=== PATIENT | female | born 1975 ===

== ENCOUNTER 2020-06-29 15:03 | Emergency (ER) | payer MEDICARE, MEDICAID, SELFPAY ==
--- NOTE | 2020-06-29 17:07 | PC.NURSE ---
No answer when called to triage.
--- NOTE | 2020-06-29 17:51 | PC.NURSE ---
Call to waiting room, no answer. java development team lead states she thinks the patient left.
== END 2020-06-29 18:26 | disposition left against medical advice (07) ==
LOC: ANHED 18:13
DX: Z53.21 Procedure and treatment not carried out due to patient leaving prior to being seen by health care provider (principal)
CPT/HCPCS: 99199

== ENCOUNTER 2020-09-08 11:05 | Emergency (ER) | payer MEDICARE, MEDICAID, SELFPAY ==
[2020-09-08] VITALS (22 sets, daily range): BP systolic 105–149; BP diastolic 60–105; PULSE 108–130; RESP 16–28; TEMP 36.6; O2SAT 94–100
--- NOTE | ~2020-09-08 | XR_ITS ---
EXAMINATION: XR chest 1V portable EXAM DATE: 09/08/2020 12:22 INDICATION: Transient level of awareness. TECHNIQUE: Portable AP frontal chest x-ray was obtained. Comparison is made to prior examination from 04/27/2018. FINDINGS: The lungs are clear. There are no pleural effusions. The cardiomediastinal silhouette is within normal limits. There is no pneumothorax suspected. The bones and soft tissues are unremarkab le. IMPRESSION: No acute cardiopulmonary findings. Reviewed, dictated and finalized at location A.
[2020-09-08 12:11] LABS: Basophils Percent Auto 0.2 % (0.2-1.2); Hematocrit 33.4 % (37.0-47.0); Hemoglobin 11.4 g/dL (12.0-15.0); Immature Granulocyte Absolute 0.15 K/mm3 (0.00-0.031); Immature Granulocyte Percent A 0.7 % (0-0.5); Lymphocytes Absolute Auto 1.88 K/mm3 (0.9-3.2); Lymphocytes Percent Auto 8.6 % (18.3-44.2); Mean Corpuscular HGB Conc 34.1 g/dl (32-36); Mean Corpuscular Hemoglobin 29.2 pg (26-34); Mean Corpuscular Volume 85.4 fl (80-100); Monocytes Absolute Auto 1.7 K/mm3 (0.1-0.6); Monocytes Percent Auto 7.9 % (2.6-8.5); Neutrophils Absolute Auto 18.1 K/mm3 (1.3-6.7); Neutrophils Percent Auto 82.6 % (45.5-73.1); Platelet Count Result 253 k/mm3 (150-375); Red Blood Count 3.91 M/mm3 (4.2-5.4); Red Cell Distribution Width 14.3 % (11.5-14.5); White Blood Count 21.9 K/mm3 (4.5-10.0)
--- NOTE | 2020-09-08 12:15 | ECG_ITS ---
Measurements Intervals [place] Rate: 133 P: 98 AL: 189 QRS: 107 QRSD: 92 T: 82 QT: 376 QTc: 559 Interpretive Statements ATRIAL FLUTTER/TACHYCARDIA WITH RAPID VENTRICULAR RESPONSE VENTRICULAR PREMATURE COMPLEX BORDERLINE ST-T WAVE ABNORMALITY- ANTEROLAT/INF LEADS BASELINE ARTIFACT- II, III, AVR, AVL, AVF, V1-V6 ABNORMAL ECG Electronically Signed On 09-08-2020 12:38:26 CDT by Maximo Lyles D.O.
[2020-09-08 12:22] LABS: Partial Thromboplastin Time 24.6 SECONDS (22.3-36.8); Prothrombin Time 13.6 Seconds (11.1-14.7)
[2020-09-08 12:24] LABS: Acetaminophen < 10 ug/mL (10-30); Ammonia < 9 umol/L (9-30); Ethanol < 10 mg/dL (<10); Salicylate < 1.0 mg/dL (2-20)
[2020-09-08 12:28] LABS: Alanine Aminotransferase 20 U/L (4-35); Albumin Level 2.8 g/dL (3.5-5.1); Alkaline Phosphatase 88 U/L (38-126); Anion Gap 13 mmol/L (8-16); Aspartate Amino Transferase 26 U/L (14-36); Bilirubin,Total 0.4 mg/dL (0.2-1.3); Blood Urea Nitrogen 19 mg/dL (7-17); Calcium 9.6 mg/dL (8.4-10.2); Carbon Dioxide 20 mmol/L (22-30); Chloride 93 mmol/L (98-107); Estimated Glomerular Filt Rate 7; Glucose 229 mg/dL (65-105); Potassium 2.7 mmol/L (3.4-5.0); Sodium 126 mmol/L (137-145)
[2020-09-08 12:42] LABS: Add Urine Microscopic? YES; Appearance Urine Cloudy (Clear); Bacteria Urine Trace /hpf; Bilirubin Urine Negative (Negative); Blood Urine Negative (Negative); Color Urine Amber (Yellow); Glucose Urine UA Negative (Negative); Ketones Urine Negative (Negative); Leukocyte Esterase Ur 3+ LEU/UL (Negative); Nitrate Urine Negative (Negative); Protein Urine 1+ mg/dL (Negative); RBC Urine 0-2 /hpf (0-2); Specific Grav Ur 1.014 (1.001-1.035); Squamous Epithelial Cell Urine Occasional /hpf (Few); Urobilinogen Urine Negative mg/dL (<2.0); WBC Clumps Urine Present /HPF; WBC Urine 51-75 /hpf
[2020-09-08 13:07] LABS: Amphetamine Screen Urine Negative (Negative); Barbiturate Screen Urine Negative (Negative); Benzodiazepines Screen Urine Positive (Negative); Cannabinoid Screen Urine Negative (Negative); Cocaine Screen Urine Negative (Negative); Methadone Screen Urine Negative (Negative); Opiate Screen Urine Negative (Negative); Phencyclidine Screen Urine Negative (Negative)
--- NOTE | 2020-09-08 13:35 | ED.GENADULT ---
HPI - General Adult General Chief complaint: Overdose Stated complaint: ?OD Time Seen by Provider: 09/08/20 11:06 History of Present Illness HPI narrative: Patient is a 45-year-old female who presents the ER with altered mental status. According to the patient's daughter yesterday patient began acting more confused saying there are people out to get her. Today she was repeating the same words and acting abnormal so the daughter contacted patient's pain management doctor as well as her sand mill operator core sand and they recommend she come to the ER to be evaluated. Patient is currently saying that she took a lot of Xanax and attempt to get high and not to take her own life. She is oriented to self but not place or time. Patient has been talking about her son taking some Xanax with her but apparently he has been in [facility] over the last year. Related Data Allergies Allergy/AdvReac Type Severity Reaction Status Date / Time naproxen Allergy Mild HIVES Verified 04/28/18 21:21 haloperidol Allergy Unknown HALLUCINATION Verified 04/28/18 21:21 AND ITCHINESS metoclopramide Allergy Unknown STOMACH Verified 04/28/18 21:21 MUSCLE SPASMS AND N/V morphine Allergy Unknown Rash/HIVES Verified 04/28/18 21:21 NSAIDS (Non-Steroidal Allergy Unknown HIVES Verified 04/28/18 21:21 Anti-Inflamma tramadol Allergy Unknown HIVES Verified 04/28/18 21:21 Review of Systems Review of Systems: ROS unobtainable: Yes unobtainable due to mental status PMFSH Past Medical History Medical History (Updated 09/08/20 @ 14:06 by Carl Madera MD) Anxiety COPD (chronic obstructive pulmonary disease) Depression Diabetes End stage renal disease GERD (gastroesophageal reflux disease) Hypercholesterolemia Hypertension Pancreatitis Peritoneal dialysis catheter in place Surgical History Surgical History (Updated 09/08/20 @ 13:40 by Carl Madera MD) History of tonsillectomy Social History Social History Substance use type: marijuana and prescription drug Gender identity (if verbalized by the patient): Female Exam Narrative: Exam Narrative: GENERAL: Chronically ill-appearing, obese, and confused. HEAD: Normocephalic, atraumatic. EYES: Scarring/cataract right pupil, left eye reactive, EOMI. ENT: Mucous membranes moist. CHEST: Clear to auscultation. No respiratory distress. HEART: Regular rate and rhythm. Normal peripheral pulses. ABDOMEN: Soft, nontender, nondistended, peritoneal dialysis catheter without surrounding infection. EXTREMITIES: Normal range of motion. 2+ edema. SKIN: Warm, dry, no rash. NEURO: Alert and oriented x1-2. PSYCH: Normal mood and affect. Course Reevaluation(s) Reevaluation #1: Patient is awake alert and oriented x4. She is infuriated that she is being admitted to the hospital. She wants to leave AGAINST MEDICAL ADVICE. She is verbalized understanding that she could have deterioration of condition and can potentially if she goes home. I discussed with her we would like to treat her for infection and also perform dialysis and correct electrolyte abnormalities. She is adamant that she leaves. She has family with her who will keep an eye on her. We have instructed them to call an ambulance immediately should patient become altered and not be able to take care of herself. They verbalized understanding this. Although I disagree wholeheartedly with patient's decision I cannot keep her against her will as she has decision-making capacity this time. Date: 09/08/20 Time: 14:06 Vital Signs Vital signs: Vital Signs Respiratory Rate 22 H 09/08/20 11:26 Pulse Oximetry 98 09/08/20 11:26 Temperature 97.9 F 09/08/20 12:36 Pulse Rate 120 H 09/08/20 13:45 Respiratory Rate 21 H 09/08/20 13:45 Blood Pressure 128/60 09/08/20 13:44 Pulse Oximetry 98 09/08/20 13:45 Medical Decision Making Vital Signs Vital Signs: Vital Signs Respiratory Rate 22 H 09/08/20 11:26 Pulse Oxime
--- NOTE | 2020-09-08 14:22 | PC.NURSE ---
Upon administering medications to patient, Pt. stated they were ready to leave, pt. began to remove themselves off the monitor. Pt. is currently alert and orientated x4 now. Pt. stating I have to go home and do my dialysis My dog is going to , I only have 3200 dollars . Attempts made to convince patient to stay in the hospital for treatment. ED MD notified of patient wanting leave against medical advice. Pt. is aware of risks upon discharge, instructions given via ED MD. Pt. ambulated out of department. IV access removed.
== END 2020-09-08 14:27 | disposition left against medical advice (07) ==
PROVIDERS: Emergency Provider Emergency Medicine
DX: T42.4X1A Poisoning by benzodiazepines, accidental (unintentional), initial encounter (principal); E87.6 Hypokalemia; E87.1 Hypo-osmolality and hyponatremia; J44.9 Chronic obstructive pulmonary disease, unspecified; E11.22 Type 2 diabetes mellitus with diabetic chronic kidney disease; I12.0 Hypertensive chronic kidney disease with stage 5 chronic kidney disease or end stage renal disease; N18.6 End stage renal disease; Z99.2 Dependence on renal dialysis; E78.00 Pure hypercholesterolemia, unspecified; K21.9 Gastro-esophageal reflux disease without esophagitis; Z79.4 Long term (current) use of insulin; R00.0 Tachycardia, unspecified; I48.92 Unspecified atrial flutter; I49.3 Ventricular premature depolarization
CPT/HCPCS: 36415; 51701; 71045; 80053; 80307; 81001; 82140; 85025; 85610; 85730; 87086; 93005; 99283

== ENCOUNTER 2020-09-09 04:00 | Inpatient (IN) | payer MEDICARE, MEDICAID, SELFPAY ==
[2020-09-09] VITALS (33 sets, daily range): BP systolic 114–149; BP diastolic 52–91; PULSE 62–124; RESP 16–25; TEMP 35.9–36.5; O2SAT 95–100
--- NOTE | ~2020-09-09 | XR_ITS ---
EXAMINATION: XR chest 1V portable DATE: 09/10/2020 19:09 INDICATION: Shortness of breath TECHNIQUE: frontal view of the chest was obtained. COMPARISON: Chest radiograph dated 09/09/2020 FINDINGS: Subtle patchy airspace opacities in the left suprahilar region and in the bilateral lower lung zones. No pleural effusion or pneumothorax. The cardiomediastinal silhouette is normal. IMPRESSION: 1. Subtle patchy airspace opacities in the left suprahilar region and bilateral lower lung zones whic h could represent atelectasis/or pneumonia. Reviewed, dictated and finalized at location A. IMPRESSION: 1. Subtle patchy airspace opacities in the left suprahilar region and bilateral lower lung zones which could represent atelectasis/or pneumonia.
--- NOTE | ~2020-09-09 | XR_ITS ---
EXAMINATION: XR chest PICC line DATE: 09/13/2020 14:49 INDICATION: PICC line placement TECHNIQUE: frontal view of the chest was obtained. COMPARISON: Chest radiograph dated 09/11/2020 FINDINGS: Left upper extremity peripherally inserted central venous catheter (PICC) tip at the superior cavoat rial junction. Lung volumes are small. No focal airspace opacities, pleural effusion or pneumothorax. The cardiomediastinal silhouette is normal. Visualized bones and soft tissues are unremarkable. IMPRESSION: 1. Left upper extremity PICC line tip at the superior cavoatrial junction. Reviewed, dictated and finalized at location A.
--- NOTE | ~2020-09-09 | XR_ITS ---
EXAMINATION: XR chest 1V EXAM DATE: 09/09/2020 04:51 INDICATION: Transient alteration of awareness. TECHNIQUE: Portable AP frontal chest x-ray was obtained. Comparison is made to prior examination from 09/08/2020. FINDINGS: The lungs are clear. There are no pleural effusions. The cardiomediastinal silhouette is within normal limits. There is no pneumothorax suspected. The bones and soft tissues are unremarkab le. IMPRESSION: No acute cardiopulmonary findings. Reviewed, dictated and finalized at location A.
--- NOTE | ~2020-09-09 | XR_ITS ---
EXAMINATION: XR chest 1V portable EXAM DATE: 09/11/2020 04:06 INDICATION: Right-sided chest pain. TECHNIQUE: Portable AP frontal chest x-ray was obtained. Comparison is made to prior examination from 09/10/2020. FINDINGS: Some linear bibasilar airspace disease most consistent with subsegmental atelectasis. Pneum onia or chronic process not excludable. Recommend follow-up two-week chest x-ray. There is no pneumot horax suspected. There are no pleural effusions. Cardiomediastinal silhouette is normal. There are no osseous abnormalities identified. IMPRESSION: Basilar subsegmental atelectasis. Pneumonia are present. Recommend follow-up x-ray. Reviewed, dictated and finalized at location A.
--- NOTE | ~2020-09-09 | CT_ITS ---
EXAMINATION: CT brain wo con DATE: 09/17/2020 16:25 INDICATION: Transient alteration of awareness. Neurological change. TECHNIQUE: Computed tomography (CT) of the head was performed without intravenous contrast. The mA wa s adjusted according to patient size. Iterative reconstruction technique was employed. Exam dose: 60 5.33 mGy-cm total exam DLP. COMPARISON: 09/09/2020 CT brain FINDINGS: Bilateral vertebral and carotid siphon internal carotid artery calcifications are noted. No intracranial mass lesion or hemorrhage or cerebrovascular accident is evident. No midline shift or mass effect effect. Normal ventricular size. No subdural or epidural hematoma. Mild mucoperiosteal thickening of the right maxillary sinus. The paranasal sinuses and mastoid air ce lls are otherwise unremarkable. No fracture or bone destruction of the cranial vault. IMPRESSION: Cerebral atherosclerosis No acute intracranial finding or significant change since 09/09/2020 Reviewed, dictated and finalized at Location A. Reviewed, dictated and finalized at location A.
--- NOTE | ~2020-09-09 | CT_ITS ---
EXAMINATION: CT brain wo con, CT cervical spine wo con EXAM DATE: 09/09/2020 04:48 INDICATION: Altered mental status. Head injury. TECHNIQUE: Spiral CT of the head was performed without contrast. Axial, coronal and sagittal images were reviewed. Spiral CT of the cervical spine was performed without contrast. Axial images were rev iewed. Coronal and sagittal reformatted images were also reviewed. The dose-length product (DLP) fo r this examination was 681.00 (accession [id number]), 500.58 (accession [id number]) mGy-cm. The exposure was tailored according to patient size, and iterative reconstruction (ASIR) was used as additional dose reduction technique. Comparison is made to prior examination from 06/22/2016. FINDINGS: HEAD CT: There is no acute intraparenchymal hemorrhage. No evidence of intraparenchymal brain mass l esion. No evidence of acute infarction. There is no mass effect or midline shift. There is no obstru ctive hydrocephalus suspected. There are no extra-axial collections. There are no acute calvarial f ractures. The orbits are unremarkable. Soft tissue is unremarkable. Small amount of right maxillar y sinus mucoperiosteal thickening. CERVICAL CT: Mild bilateral carotid bulb arterial sclerosis. Mild cervical spondylosis. There is no e vidence of acute cervical fracture. The odontoid process is intact. Pre-dens space is normal. Prev ertebral soft tissue is normal. There are no soft tissue abnormalities identified. There is no disc space widening or traumatic vertebral body subluxation suspected. Vertebral body and disc heights a re well-maintained. A detailed level by level evaluation of spondylosis can be added as addendum if requested. IMPRESSION: 1. No acute intracranial findings or cervical fracture. Reviewed, dictated and finalized at location A. IMPRESSION: 1. No acute intracranial findings or cervical fracture.
--- NOTE | 2020-09-09 04:05 | ECG_ITS ---
Measurements Intervals [place] Rate: 106 P: [place]: 0 QRS: 27 QRSD: 97 T: 27 QT: 255 QTc: 339 Interpretive Statements ATRIAL FLUTTER/TACHYCARDIA WITH RAPID VENTRICULAR RESPONSE CANNOT RULE OUT SEPTAL INFARCT, AGE INDETERMINATE BORDERLINE ST-T WAVE ABNORMALITY- INF/LAT LEADS BASELINE ARTIFACT- I, II, III, AVR, AVL, AVF, V1-V6 ABNORMAL ECG Electronically Signed On 09-09-2020 6:15:46 CDT by Maximo Lyles D.O.
--- NOTE | 2020-09-09 04:17 | ED.GENADULT ---
HPI - General Adult General Chief complaint: Weakness Stated complaint: weakness Time Seen by Provider: 09/09/20 04:01 Source: patient, EMS, RN notes reviewed and old records reviewed Mode of arrival: EMS Limitations: altered mental status History of Present Illness HPI narrative: This is a 45 year old female with hypertension, DM, depression, anxiety, ESRD on peritoneal dialysis who presents via EMS for evaluation of weakness. Patient was evaluated in [place] ED yesterday for a possible overdose. PAtient took an unknown amount of Xanax prior to that visit. Patient told staff at that time she was trying to get high and she was not trying to kill herself. Patient had to be given narcan during that visit. During her evaluation, patient was found to have a UTI, hypokalemia. It was recommended that she be admitted to hospital but she left against medical advice. Patient's family called 911 this morning because they found patient by her stairs weak. She reports weakness and pain all over. She states she took 2 oxycodone prior to arrival. She is confused. She is able to state age and name. She thinks it is 1943. She was given rocephin 2 g IV around 1300 yesterday. She was also given NS 500 ml and potassium PO. Related Data Home Medications Medication Instructions Recorded Confirmed B complex with C 20-folic acid 1 cap PO DAILY 09/09/20 09/09/20 [Bent Caps] alprazolam 2 mg PO TID PRN 09/09/20 09/09/20 baclofen 10 mg PO TID 09/09/20 09/09/20 carvedilol 25 mg PO BID 09/09/20 09/09/20 cimetidine 300 mg PO TID 09/09/20 09/09/20 clonidine HCl 0.1 mg PO DAILY 09/09/20 09/09/20 ergocalciferol (vitamin D2) 50,000 unit PO WEEKLY 09/09/20 09/09/20 furosemide 80 mg PO BID 09/09/20 09/09/20 insulin aspart U-100 [Novolog See Rx Instructions .ROUTE .COMPLEX 09/09/20 09/09/20 Flexpen U-100 Insulin] insulin degludec [Tresiba 60 unit SUBCUT DAILY 09/09/20 09/09/20 FlexTouch U-100] lactulose 20 g PO BID 09/09/20 09/09/20 [id number]-[id number] [Creon] 2 cap PO TIDWMEAL 09/09/20 09/09/20 megestrol 120 mg PO DAILY 09/09/20 09/09/20 nifedipine 30 mg PO DAILY 09/09/20 09/09/20 ondansetron HCl [Zofran] 4 mg PO Q6H PRN 09/09/20 09/09/20 oxycodone 10 mg PO Q4-6H PRN 09/09/20 09/09/20 pantoprazole 40 mg PO DAILY 09/09/20 09/09/20 potassium chloride [Klor-Con M20] 20 meq PO BID 09/09/20 09/09/20 rosuvastatin 10 mg PO DAILY 09/09/20 09/09/20 scopolamine base 1 patch TOPICAL Q72H 09/09/20 09/09/20 sevelamer carbonate [Renvela] 800 mg PO TIDWMEAL 09/09/20 09/09/20 sodium chloride 1 g PO BID 09/09/20 09/09/20 sodium chloride 1 g PO BID 09/09/20 09/09/20 Allergies Allergy/AdvReac Type Severity Reaction Status Date / Time naproxen Allergy Mild HIVES Verified 04/28/18 21:21 haloperidol Allergy Unknown HALLUCINATION Verified 04/28/18 21:21 AND ITCHINESS metoclopramide Allergy Unknown STOMACH Verified 04/28/18 21:21 MUSCLE SPASMS AND N/V morphine Allergy Unknown Rash/HIVES Verified 04/28/18 21:21 NSAIDS (Non-Steroidal Allergy Unknown HIVES Verified 04/28/18 21:21 Anti-Inflamma tramadol Allergy Unknown HIVES Verified 04/28/18 21:21 Review of Systems Review of Systems: ROS unobtainable: Yes unobtainable due to mental status PMFSH Past Medical History Medical History (Updated 09/09/20 @ 20:05 by Michelle Choudhary MD) Anxiety COPD (chronic obstructive pulmonary disease) Depression Diabetes End stage renal disease GERD (gastroesophageal reflux disease) Hypercholesterolemia Hypertension Pancreatitis Peritoneal dialysis catheter in place Surgical History Surgical History (Updated 09/08/20 @ 13:40 by Carl Madera MD) History of tonsillectomy Social History Social History Smoking packs per day: 1 Smoking cigarettes per day: 20.0 Smoking status: Current every day smoker Tobacco type: cigarettes Alcohol intake: never Substance use: never Substance use type: prescripti
[2020-09-09 04:27] LABS: Alveolar/Arterial O2 Gradient 39.3 mmHg; Base Excess ABG 0.3 mEq/l (+/-2.0); Carboxyhemoglobin 1.4 % THb (0-2.0); Fractional Inspired Oxygen 21 %; HCO3 ABG 22.7 mEq/l (22.0-26.0); Methemoglobin ABG 0.2 %THb (0-1.5); Oxygen Content ABG 16.4 %vol (16.0-22.0); Oxygen Saturation ABG 96.2 % (95.0-100.0); Oxyhemoglobin 93.7 % THb (90.0-100.0); PCO2 ABG 30.1 mmHg (35.0-45.0); PO2 ABG 74.4 mmHg (80.0-100.0); PO2 FiO2 Ratio Arterial Blood 3.54 %; Reduced Hemoglobin 4.7 %THb (0-5.0); Total Hemoglobin 12.4 g/dL (12.0-18.0); pH ABG 7.496 (7.350-7.450)
[2020-09-09 04:28] LABS: Device ROOM AIR; Modified Allen's Test Pass; Site Drawn LEFT RADIAL
[2020-09-09 04:33] LABS: Basophils Percent Auto 0.2 % (0.2-1.2); Eosinophils Percent Auto 0.3 % (0-4.4); Hematocrit 38.6 % (37.0-47.0); Hemoglobin 13.1 g/dL (12.0-15.0); Immature Granulocyte Percent A 0.7 % (0-0.5); Lymphocytes Absolute Auto 2.46 K/mm3 (0.9-3.2); Lymphocytes Percent Auto 16.1 % (18.3-44.2); Mean Corpuscular HGB Conc 33.9 g/dl (32-36); Mean Corpuscular Hemoglobin 29.4 pg (26-34); Mean Corpuscular Volume 86.5 fl (80-100); Mean Platelet Volume 10.3 fl (7.4-10.4); Monocytes Absolute Auto 1.2 K/mm3 (0.1-0.6); Monocytes Percent Auto 7.7 % (2.6-8.5); Neutrophils Absolute Auto 11.5 K/mm3 (1.3-6.7); Platelet Count Result 243 k/mm3 (150-375); Red Blood Count 4.46 M/mm3 (4.2-5.4); Red Cell Distribution Width 14.4 % (11.5-14.5); White Blood Count 15.3 K/mm3 (4.5-10.0)
[2020-09-09 04:42] LABS: Ammonia < 9 umol/L (9-30)
[2020-09-09 04:47] LABS: Lactic Acid Reflex 1.6 mmol/L (0.7-2.1)
[2020-09-09 04:53] LABS: Acetaminophen < 10 ug/mL (10-30); Ethanol < 10 mg/dL (<10); Salicylate < 1.0 mg/dL (2-20)
[2020-09-09 04:57] LABS: INR 0.9
[2020-09-09 04:58] LABS: Alanine Aminotransferase 22 U/L (4-35); Albumin Level 2.9 g/dL (3.5-5.1); Alkaline Phosphatase 89 U/L (38-126); Anion Gap 10 mmol/L (8-16); Aspartate Amino Transferase 33 U/L (14-36); Bilirubin,Total 0.6 mg/dL (0.2-1.3); Blood Urea Nitrogen 20 mg/dL (7-17); Calcium 9.9 mg/dL (8.4-10.2); Carbon Dioxide 26 mmol/L (22-30); Chloride 90 mmol/L (98-107); Estimated CRCL calculation 12 ml/min; Estimated Glomerular Filt Rate 7; Glucose 185 mg/dL (65-105); Partial Thromboplastin Time 28.9 SECONDS (22.3-36.8); Potassium 2.5 mmol/L (3.4-5.0); Sodium 126 mmol/L (137-145)
[2020-09-09 05:00] LABS: Troponin I 0.031 ng/mL (0.000-0.034)
[2020-09-09 05:06] LABS: Lipase 67 U/L (23-300); Magnesium 1.4 mg/dL (1.6-2.3)
[2020-09-09 05:10] LABS: Beta HCG Quantitative < 2.39 mIU/ML
[2020-09-09 05:16] LABS: Amphetamine Screen Urine Negative (Negative); Barbiturate Screen Urine Negative (Negative); Benzodiazepines Screen Urine Positive (Negative); Cannabinoid Screen Urine Negative (Negative); Cocaine Screen Urine Negative (Negative); Methadone Screen Urine Negative (Negative); Opiate Screen Urine Negative (Negative); Phencyclidine Screen Urine Negative (Negative)
[2020-09-09] MEDS: POTASSIUM CHLORIDE 20 MEQ TABLET 40 MEQ PO (05:37)
--- NOTE | 2020-09-09 05:47 | PC.NURSE ---
Sitter with pt. Pt is confused, hallucinating, and attempting to get out of bed. Pt is a fall risk.
--- NOTE | 2020-09-09 07:40 | PC.NURSE ---
This patient, Bryant Flores, was admitted to [facility] Surg Room 333-01@07:35. Patient/family oriented to hospital policies and general routines including ID bracelet, bed and alarms, visiting hours, pain management, procedures, bathroom and other care routines, personal items, smoking policy, room service/diet, and visiting hours. Information on how to activate the Rapid Response Team has been discussed. Patient/Family are encouraged to report perceived risks to care and to ask questions if they do not understand what they are told or what they should do.
--- NOTE | 2020-09-09 07:43 | PC.NURSE ---
This patient, Bryant Flores, was admitted to [facility] Surg Room 333-01 on 09/09/20 @ 0737. Patient/family oriented to hospital policies and general routines including ID bracelet, bed and alarms, visiting hours, pain management, procedures, bathroom and other care routines, personal items, smoking policy, room service/diet, and visiting hours. Information on how to activate the Rapid Response Team has been discussed. Patient/Family are encouraged to report perceived risks to care and to ask questions if they do not understand what they are told or what they should do.
[2020-09-09 11:44] LABS: Glucose Point of Care 174 mg/dl (65-105)
--- NOTE | 2020-09-09 12:45 | PM.IMHP ---
H&P: HPI History of Present Illness Date/Time: 09/09/20 12:45 Patient is a 45-year-old female with history of end-stage renal disease on peritoneal dialysis patient is quite somnolent unable to provide any review of symptoms or history, her mother is present in the room providing history and some of the history is recorded from electronic chart, apparently patient was brought emergency department her yesterday after see a taken several tablets of Xanax to get high, patient was evaluated in emergency depart however patient's left AMA, this sports physical therapist patient was found somnolent on the floor EMS was called and patient was brought to the emergency department there are no more details available what exactly transpired, my suspicion patient has not received peritoneal dialysis and this may cause her to be somnolent as patient had taken benzodiazepine as well as opiates, will contact patient nephrology and resume peritoneal dialysis as soon as possible this may help patient mentation once clinically stable will have a PT OT evaluate the patient and further recommendation to follow. Patient is admitted as inpatient most likely patient will stay 2 midnights Chief Complaint: Generalized weakness acute mental status change Review of Systems Review of Systems: ROS unobtainable: Yes unobtainable due to medical condition PMFSH Past Medical History Medical History (Updated 09/09/20 @ 17:49 by Didi Thurston MD) Anxiety COPD (chronic obstructive pulmonary disease) Depression Diabetes End stage renal disease GERD (gastroesophageal reflux disease) Hypercholesterolemia Hypertension Pancreatitis Peritoneal dialysis catheter in place Surgical History Surgical History (Updated 09/08/20 @ 13:40 by Carl Madera MD) History of tonsillectomy Social History Social History Smoking packs per day: 1 Smoking cigarettes per day: 20.0 Smoking status: Current every day smoker Tobacco type: cigarettes Alcohol intake: never Substance use: never Substance use type: prescription drug Gender identity (if verbalized by the patient): Female Spiritual care concerns: No Meds Home Medications and Allergies Home Medications Medication Instructions Recorded Confirmed Type B complex with C 20-folic acid 1 cap PO DAILY 09/09/20 09/09/20 History [[place] Caps] alprazolam 2 mg PO TID PRN 09/09/20 09/09/20 History baclofen 10 mg PO TID 09/09/20 09/09/20 History carvedilol 25 mg PO BID 09/09/20 09/09/20 History cimetidine 300 mg PO TID 09/09/20 09/09/20 History clonidine HCl 0.1 mg PO DAILY 09/09/20 09/09/20 History ergocalciferol (vitamin D2) 50,000 unit PO WEEKLY 09/09/20 09/09/20 History furosemide 80 mg PO BID 09/09/20 09/09/20 History insulin aspart U-100 [Novolog See Rx Instructions .ROUTE .COMPLEX 09/09/20 09/09/20 History Flexpen U-100 Insulin] insulin degludec [Tresiba 60 unit SUBCUT DAILY 09/09/20 09/09/20 History FlexTouch U-100] lactulose 20 g PO BID 09/09/20 09/09/20 History svrykp-ykiqmava-ilrzzdl [Creon] 2 cap PO TIDWMEAL 09/09/20 09/09/20 History megestrol 120 mg PO DAILY 09/09/20 09/09/20 History nifedipine 30 mg PO DAILY 09/09/20 09/09/20 History ondansetron HCl [Zofran] 4 mg PO Q6H PRN 09/09/20 09/09/20 History oxycodone 10 mg PO Q4-6H PRN 09/09/20 09/09/20 History pantoprazole 40 mg PO DAILY 09/09/20 09/09/20 History potassium chloride [Klor-Con M20] 20 meq PO BID 09/09/20 09/09/20 History rosuvastatin 10 mg PO DAILY 09/09/20 09/09/20 History scopolamine base 1 patch TOPICAL Q72H 09/09/20 09/09/20 History sevelamer carbonate [Renvela] 800 mg PO TIDWMEAL 09/09/20 09/09/20 History sodium chloride 1 g PO BID 09/09/20 09/09/20 History sodium chloride 1 g PO BID 09/09/20 09/09/20 History Allergies Allergy/AdvReac Type Severity Reaction Status Date / Time naproxen Allergy Mild HIVES Verified 04/28/18 21:21 haloperidol Allergy Unknown HALLUCINATION Verified 04/28/18 21:21 AND ITCHINESS metoclopramide
[2020-09-09] MEDS: IPRATROPIUM BR 0.02% INH SOLN 0.5 MG/2.5 ML VIAL INHALATION ×3 (13:52→20:42)
[2020-09-09] MEDS: ALBUTEROL SULFATE NEB 2.5 MG/0.5 ML INH INHALATION ×3 (13:52→20:42)
[2020-09-09 14:07] LABS: Magnesium 1.3 mg/dL (1.6-2.3); Potassium 2.9 mmol/L (3.4-5.0)
--- NOTE | 2020-09-09 16:04 | PM.CNNEP ---
Assessment and Plan Assessment and plan (1) End stage renal disease: Code(s): N18.6 - End stage renal disease Status: Chronic Assessment and Plan: resume nightly CCPD tonight follow eletrolytes, volume status, and clearance (2) Hypokalemia: Code(s): E87.6 - Hypokalemia Status: Acute Assessment and Plan: recurrent issue event as an outpatient replete as needed replete magnesium as well follow trend (3) Altered mental status: Code(s): R41.82 - Altered mental status, unspecified Status: Acute Assessment and Plan: due to potential drug overdose dialysis may provide some clearance follow trend of mentation (4) Hyponatremia: Code(s): E87.1 - Hypo-osmolality and hyponatremia Status: Acute Assessment and Plan: chronic issues at baseline on salt tabs as an outpatient follow trend of sodium (5) UTI (urinary tract infection): Code(s): N39.0 - Urinary tract infection, site not specified Status: Acute Assessment and Plan: UA somewhat suggestive follow-up on urine culture on antibiotics Will continue to follow. History of Present Illness Reason for Consult Consult date: 09/09/20 Reason for consult: end stage renal disease Chief Complaint Chief complaint: sepsis,uti,hypokalemia,esrd History of Present Illness Narrative: Most of the information I have obtained is from review of the electronic medical record as well as discussion with the medical staff involved in the patient's care as she is unable provide me with much history that led to her admission to the hospital. The patient is a 45-year-old female with a past medical history as outlined below who presented to [facility] Emergency room for altered mental status. The patient actually presented to [facility] emergency room the day before yesterday as a potential medication overdose. She reportedly took an excessive amount of Xanax to get high but was adamant that this was not an attempt at suicide. Routine blood test at that time demonstrated labs consistent with her known history of end-stage renal disease although she was noted to be quite hypokalemic. As her mental status was still not back to baseline, it was recommended that she be admitted to the hospital but the patient left against medical advice. Subsequently, the patient was found on the floor by her family earlier this morning and she apparently was also quite altered at that time as well. EMS was called and the patient was brought back to the emergency room for further evaluation. Workup and evaluation in the emergency room once again demonstrated labs consistent with her known history of end-stage renal disease and once again she was quite hypokalemic. CT scan of her head did not show any acute abnormalities and her drug screen was significant for benzodiazepines being present. She was otherwise hemodynamically stable but quite lethargic / somnolent on presentation. Given these constellation of symptoms and her laboratory findings, she was admitted the hospital for further evaluation and therapy. Renal consultation was requested due to her end-stage renal disease. The patient normally receives peritoneal dialysis every night under the care of Dr. Terrell Gaytan through [facility]. Interestingly, despite the fact that she is on peritoneal dialysis, the patient herself does not actually know how to do peritoneal dialysis. She is dependent on caregivers to do her peritoneal dialysis for her in general. Furthermore, in the last few months, her compliance with medications and how she takes her medications in general are questionable as noted by her outpatient peritoneal dialysis nurse and other caregivers. Currently, at the time by nora yee, the patient is able to answer simple yes no questions but any further detailed questions asked are just met with a blank s
[2020-09-09] MEDS: MAGNESIUM SULF 1 GM/D5W 100 ML 1 GM/100 ML BAG IVPB (16:51)
[2020-09-09 16:56] LABS: Albumin Level 2.5 g/dL (3.5-5.1); Anion Gap 8 mmol/L (8-16); Blood Urea Nitrogen 20 mg/dL (7-17); Calcium 9.7 mg/dL (8.4-10.2); Carbon Dioxide 25 mmol/L (22-30); Chloride 93 mmol/L (98-107); Estimated CRCL calculation 12 ml/min; Estimated Glomerular Filt Rate 7; Glucose 155 mg/dL (65-105); Magnesium 1.3 mg/dL (1.6-2.3); Potassium 2.9 mmol/L (3.4-5.0); Sodium 126 mmol/L (137-145)
[2020-09-09] MEDS: BUDESONIDE RESPULE NEB 0.5 MG/2 ML AMP INHALATION (20:42)
[2020-09-09] MEDS: HEPARIN SODIUM 5,000 UNITS/ML VIAL 5000 UNITS SUB-Q (21:34)
[2020-09-09 23:33] LABS: Glucose Point of Care 163 mg/dl (65-105)
[2020-09-10] VITALS (23 sets, daily range): BP systolic 110–129; BP diastolic 49–68; PULSE 77–101; RESP 16–24; TEMP 35.9–36.4; O2SAT 93–96
[2020-09-10] MEDS: IPRATROPIUM BR 0.02% INH SOLN 0.5 MG/2.5 ML VIAL INHALATION ×6 (00:44→20:46)
[2020-09-10] MEDS: ALBUTEROL SULFATE NEB 2.5 MG/0.5 ML INH INHALATION ×6 (00:44→20:45)
[2020-09-10 06:47] LABS: Basophils Percent Auto 0.1 % (0.2-1.2); Eosinophils Percent Auto 0.3 % (0-4.4); Hemoglobin 10.8 g/dL (12.0-15.0); Immature Granulocyte Absolute 0.07 K/mm3 (0.00-0.031); Immature Granulocyte Percent A 0.5 % (0-0.5); Lymphocytes Absolute Auto 2.57 K/mm3 (0.9-3.2); Lymphocytes Percent Auto 17.4 % (18.3-44.2); Mean Corpuscular HGB Conc 32.7 g/dl (32-36); Mean Corpuscular Volume 88.5 fl (80-100); Mean Platelet Volume 10.2 fl (7.4-10.4); Monocytes Absolute Auto 1.1 K/mm3 (0.1-0.6); Monocytes Percent Auto 7.6 % (2.6-8.5); Neutrophils Percent Auto 74.1 % (45.5-73.1); Platelet Count Result 210 k/mm3 (150-375); Red Blood Count 3.73 M/mm3 (4.2-5.4); Red Cell Distribution Width 14.6 % (11.5-14.5); White Blood Count 14.8 K/mm3 (4.5-10.0)
[2020-09-10 07:11] LABS: Alanine Aminotransferase 18 U/L (4-35); Albumin Level 2.4 g/dL (3.5-5.1); Alkaline Phosphatase 81 U/L (38-126); Anion Gap 8 mmol/L (8-16); Aspartate Amino Transferase 29 U/L (14-36); Bilirubin,Total 0.3 mg/dL (0.2-1.3); Blood Urea Nitrogen 22 mg/dL (7-17); Calcium 9.3 mg/dL (8.4-10.2); Carbon Dioxide 25 mmol/L (22-30); Chloride 93 mmol/L (98-107); Estimated CRCL calculation 12 ml/min; Estimated Glomerular Filt Rate 7; Glucose 162 mg/dL (65-105); Potassium 2.6 mmol/L (3.4-5.0); Sodium 126 mmol/L (137-145)
[2020-09-10 08:05] LABS: Glucose Point of Care 183 mg/dl (65-105)
[2020-09-10] MEDS: BUDESONIDE RESPULE NEB 0.5 MG/2 ML AMP INHALATION ×2 (08:12→20:45)
[2020-09-10 08:46] LABS: Magnesium 1.5 mg/dL (1.6-2.3)
--- NOTE | 2020-09-10 09:46 | PM.PNNEP ---
Progress Note: A&P Assessment and Plan (1) End stage renal disease: Code(s): N18.6 - End stage renal disease Status: Chronic Assessment and Plan: On peritoneal dialysis and tolerating it well. (2) Hypokalemia: Code(s): E87.6 - Hypokalemia Status: Acute Assessment and Plan: low again today. Given [address] Thurston. (3) Altered mental status: Code(s): R41.82 - Altered mental status, unspecified Status: Acute Assessment and Plan: due to potential drug overdose The patient does not remember what she took at home. The only thing that showed up was benzodiazepines on the tox screen. Mental status is improved. (4) Hyponatremia: Code(s): E87.1 - Hypo-osmolality and hyponatremia Status: Acute Assessment and Plan: chronic issues at baseline on salt tabs as an outpatient Sodium level is stable in the mid to high 120s. (5) UTI (urinary tract infection): Code(s): N39.0 - Urinary tract infection, site not specified Status: Acute Assessment and Plan: UA somewhat suggestive Blood and urine cultures are pending. on Ceftriaxone Will continue to follow. Subjective Date/time seen: 09/10/20 09:46 Interval history: Patient is more awake and also lucid today. She recognizes me. She does not remember the last few days. I told her she was basically unconscious. No chest pain or shortness of breath. She is lying in bed comfortably. Exam Narrative: Exam Narrative: GENERAL APPEARANCE: WD/EN female in no acute distress but confused CARDIOVASCULAR: RRR, normal S1 and S2, no rub or gallop RESPIRATORY: clear ABDOMEN: soft, nontender, nondistended, positive bowel sounds present EXTREMITIES: no edema NEUROLOGICAL: alert and oriented x 1; rest of exam is limited Objective Data Vital Signs Vital Signs: Vital Signs - 24 hr 09/09/20 12:00 09/09/20 13:50 09/09/20 14:00 Temperature 36.5 C Pulse Rate 88 94 87 Respiratory Rate 18 20 Blood Pressure 114/56 L Pulse Oximetry 95 09/09/20 14:02 09/09/20 16:00 09/09/20 16:31 Temperature Pulse Rate 94 100 97 Respiratory Rate 18 18 Blood Pressure Pulse Oximetry 09/09/20 20:00 09/09/20 20:43 09/09/20 20:54 Temperature Pulse Rate 83 92 96 Respiratory Rate 20 20 Blood Pressure Pulse Oximetry 09/09/20 22:00 09/10/20 00:00 09/10/20 00:44 Temperature 35.9 C L Pulse Rate 84 86 100 Respiratory Rate 20 Blood Pressure 134/65 Pulse Oximetry 96 09/10/20 00:53 09/10/20 03:33 09/10/20 03:42 Temperature Pulse Rate 99 96 92 Respiratory Rate 20 20 20 Blood Pressure Pulse Oximetry 09/10/20 04:00 09/10/20 06:00 09/10/20 08:12 Temperature 36.1 C L Pulse Rate 85 88 90 Respiratory Rate 18 20 Blood Pressure 110/49 L Pulse Oximetry 93 09/10/20 08:28 Temperature Pulse Rate 96 Respiratory Rate 20 Blood Pressure Pulse Oximetry Intake/Output Intake/Output: Intake & Output 09/07/20 09/08/20 09/09/20 09/10/20 23:59 23:59 23:59 23:59 Intake Total 550 0 Balance 550 0 Meds/Results Medications: Active Medications Generic Name Dose Route Start Last Admin Trade Name Freq PRN Reason Stop Dose Admin Albuterol 2.5 mg 09/09/20 12:00 09/10/20 08:12 Albuterol Sulfate Neb 2.5 Mg/0.5 Ml Inh INHALATION 2.5 mg Q4HRT FLIP Administration Lipase/Protease/Amylase 1 cap 09/09/20 17:00 09/09/20 19:22 Lipase/Amylase/Protease 12,000 Units Cap PO Not Given TIDWM FLIP Budesonide 0.5 mg 09/09/20 20:00 09/10/20 08:12 Budesonide Respule Neb 0.5 Mg/2 Ml Amp INHALATION 0.5 mg Q12HRT FLIP Administration Carvedilol 25 mg 09/09/20 21:00 09/09/20 22:32 Carvedilol 25 Mg Tablet PO Not Given Q12HR FLIP Clonidine HCl 0.1 mg 09/09/20 09:00 09/09/20 19:20 Clonidine Hcl 0.1 Mg Tablet PO Not Given DAILY FLIP Dextrose 12.5 gm 09/09/20 18:58 Dex
[2020-09-10] MEDS: PANTOPRAZOLE 40 MG TABLET PO (09:59)
[2020-09-10] MEDS: LIPASE/AMYLASE/PROTEASE 12,000 UNITS CAP 1 CAP PO ×3 (09:59→17:20)
[2020-09-10] MEDS: SODIUM CHLORIDE 1 GM TABLET PO ×2 (09:59→17:20)
[2020-09-10] MEDS: POTASSIUM CHLORIDE 20 MEQ TABLET.ER PO ×2 (09:59→17:19)
[2020-09-10] MEDS: ROSUVASTATIN 10 MG TABLET PO (09:59)
[2020-09-10] MEDS: carvediloL 25 MG TABLET PO ×2 (10:00→20:24)
[2020-09-10] MEDS: NIFEdipine 30 MG TAB.ER.24 PO (10:00)
[2020-09-10] MEDS: FAMOTIDINE 20 MG TABLET PO ×2 (10:00→20:24)
[2020-09-10] MEDS: SEVELAMER CARBONATE 800 MG TABLET PO ×3 (10:00→17:20)
[2020-09-10] MEDS: cloNIDine HCL 0.1 MG TABLET PO (10:00)
[2020-09-10] MEDS: FUROSEMIDE 80 MG TABLET PO ×2 (10:00→17:20)
[2020-09-10] MEDS: VITAMIN B CMPLX/VIT C/FOLIC AC 1 CAPSULE 1 CAP PO (10:00)
[2020-09-10] MEDS: LACTULOSE 20 GM/30 ML UDC PO ×2 (10:05→17:20)
[2020-09-10] MEDS: HEPARIN SODIUM 5,000 UNITS/ML VIAL 5000 UNITS SUB-Q ×2 (10:08→20:24)
[2020-09-10] MEDS: MAGNESIUM SULF 1 GM/D5W 100 ML 1 GM/100 ML BAG IVPB (10:13)
[2020-09-10 12:34] LABS: Glucose Point of Care 282 mg/dl (65-105)
[2020-09-10] MEDS: INSULIN ASPART (*BKC) 100 UNITS/ML SUB-Q ×2 (12:54→17:23)
--- NOTE | 2020-09-10 13:26 | PM.IMPN ---
Progress Note: A&P Assessment and Plan (1) Acute alteration in mental status: Code(s): R41.82 - Altered mental status, unspecified Status: Acute Assessment and Plan: 09/10/20 13:26 09/09 Patient is a 45-year-old female with history of end-stage renal disease on peritoneal dialysis patient is quite somnolent unable to provide any review of symptoms or history, her mother is present in the room providing history and some of the history is recorded from electronic chart, apparently patient was brought emergency department her yesterday after see a taken several tablets of Xanax to get high, patient was evaluated in emergency depart however patient's left AMA, 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 09/10 patient had a peritoneal dialysis last night this morning patient is little more awake and able to communicate and was able to swallow without difficulty, however patient does not recollect exactly happened by she was brought to the emergency, see denies taking any medication more than necessary, however her current mentation has improved, DW Dr. Gaytan patient will have return dialysis again today, patient is hypokalemic and hypomagnesemia will replace and monitor, clinically stable will have a PT OT evaluate the patient and further recommendation to follow (2) UTI (urinary tract infection): Code(s): N39.0 - Urinary tract infection, site not specified Status: Acute Assessment and Plan: Patient unable to provide review of symptom however urine is suspicious for UTI being treated with Rocephin will follow urine culture and blood culture (3) End-stage renal disease on peritoneal dialysis: Code(s): N18.6 - End stage renal disease; Z99.2 - Dependence on renal dialysis Status: Acute Assessment and Plan: Patient on peritoneal dialysis patient missed her dialysis yesterday we have contacted Nephrology to resume patient dialysis further recommendation to follow (4) Hypokalemia: Code(s): E87.6 - Hypokalemia Status: Acute Assessment and Plan: Will supplement and monitor (5) Acute hyponatremia: Code(s): E87.1 - Hypo-osmolality and hyponatremia Status: Acute Assessment and Plan: Most likely secondary to hypovolemia will monitor patient be seen by medical staff services coordinator and further recommendation to (6) Sepsis: Code(s): A41.9 - Sepsis, unspecified organism Status: Acute Additional Plan Patient with a elevated white counts, acute mental status change with tachycardia and tachypnea patient with criteria for sepsis most likely secondary to UTI being treated Rocephin will follow-up on urine and blood culture and further recommendation to follow Subjective Date/time seen: 09/10/20 13:26 09/09 Patient is a 45-year-old female with history of end-stage renal disease on peritoneal dialysis patient is quite somnolent unable to provide any review of symptoms or history, her mother is present in the room providing history and some of the history is recorded from electronic chart, apparently patient was brought emergency department her yesterday after see a taken several tablets of Xanax to get high, patient was evaluated in emergency depart however patient's left AMA, 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
--- NOTE | 2020-09-10 15:19 | PCPTNOTE ---
Attempted PT eval. Pt refused, states she just got back to bed and is too tired. Will try again tomorrow.
[2020-09-10 17:18] LABS: Glucose Point of Care 201 mg/dl (65-105)
[2020-09-10] MEDS: MEGESTROL ACETATE (*CHEMO) 40 MG TABLET 120 MG PO (17:20)
[2020-09-10 17:46] LABS: Anion Gap 6 mmol/L (8-16); Blood Urea Nitrogen 21 mg/dL (7-17); Calcium 9.7 mg/dL (8.4-10.2); Carbon Dioxide 26 mmol/L (22-30); Chloride 94 mmol/L (98-107); Estimated CRCL calculation 13 ml/min; Estimated Glomerular Filt Rate 7; Glucose 204 mg/dL (65-105); Magnesium 1.7 mg/dL (1.6-2.3); Potassium 3.4 mmol/L (3.4-5.0); Sodium 126 mmol/L (137-145)
[2020-09-10 20:17] LABS: Appearance Peritoneal Fluid Clear (Clear); Color Peritoneal Fluid Colorless (Colorless); Lymphocytes Peritoneal Fluid 19 %; Macrophages Peritoneal Fluid 59 %; Mesothelial Cells Peritoneal Fluid 2 %; Neutrophils Peritoneal Fluid 20 % (0-25); Nucleated Cells Peritoneal Flu 10 /uL (0-500); RBC Peritoneal Fluid 0 /uL (0-100000); Source Peritoneal Fluid Peritoneal Fluid
[2020-09-10] MEDS: INSULIN GLARGINE (*BKC) 100 UNITS/ML 30 UNITS SUB-Q (20:18)
[2020-09-10 20:54] LABS: Alveolar/Arterial O2 Gradient 71.4 mmHg; Base Excess ABG 2.5 mEq/l (+/-2.0); Device NASAL CANNULA; Fractional Inspired Oxygen 24 %; HCO3 ABG 25.5 mEq/l (22.0-26.0); Liters per Minute 0.5 LPM; Modified Allen's Test Pass; Oxygen Content ABG 14.6 %vol (16.0-22.0); Oxygen Saturation ABG 92.9 % (95.0-100.0); PCO2 ABG 33.9 mmHg (35.0-45.0); PO2 ABG 59.4 mmHg (80.0-100.0); PO2 FiO2 Ratio Arterial Blood 2.48 %; Site Drawn RIGHT RADIAL; Total Hemoglobin 11.4 g/dL (12.0-18.0); pH ABG 7.494 (7.350-7.450)
[2020-09-10] MEDS: oxyCODONE HCL (*CRX) 5 MG TAB IR 10 MG PO (21:40)
[2020-09-10 21:57] LABS: Glucose Point of Care 194 mg/dl (65-105)
[2020-09-11] VITALS (23 sets, daily range): BP systolic 94–118; BP diastolic 59–61; PULSE 81–99; RESP 16–20; TEMP 35.9–36.8; O2SAT 94–100
[2020-09-11] MEDS: IPRATROPIUM BR 0.02% INH SOLN 0.5 MG/2.5 ML VIAL INHALATION ×6 (00:13→23:47)
[2020-09-11] MEDS: ALBUTEROL SULFATE NEB 2.5 MG/0.5 ML INH INHALATION ×7 (00:13→23:48)
--- NOTE | 2020-09-11 03:52 | ECG_ITS ---
Measurements Intervals [place] Rate: 86 P: 237 [place]: 156 QRS: 59 QRSD: 86 T: 53 QT: 382 QTc: 458 Interpretive Statements ECTOPIC ATRIAL RHYTHM ATRIAL PREMATURE COMPLEX CANNOT RULE OUT SEPTAL INFARCT, AGE INDETERMINATE BASELINE ARTIFACT- I, II, III, AVR, AVL, AVF, V1-V6 ABNORMAL ECG Electronically Signed On 09-11-2020 7:25:05 CDT by Maximo Lyles D.O.
[2020-09-11] MEDS: ALPRAZolam (*CRX) 0.5 MG TABLET 2 MG PO (04:34)
--- NOTE | 2020-09-11 05:57 | PC.NURSE ---
RN found patient trying to adjust and manipulate dialysis catheter. Patient was convinced that she was not actually getting dialysis and that she was going to . RN kept reminding patient that she was in the hospital and her dialysis was being managed by dialysis nurses in the hospital. Patient stated that we did not know what we were talking about. Patient was not redirectable. Patient then stated she was having chest pain because she did not get her dialysis. EKG done for chest pain. CXR done for chest pain. Patient then complained of being short of breath and a breathing treatment was given. Patient stated she was short of breath because we were pushing air into her. RN evaluated dialysis set up and called dialysis. Dialysis said that this was not an issue. Patient given alprazolam and started to rest comfortably.
[2020-09-11 06:56] LABS: Albumin Level 2.6 g/dL (3.5-5.1); Anion Gap 8 mmol/L (8-16); Blood Urea Nitrogen 23 mg/dL (7-17); Carbon Dioxide 24 mmol/L (22-30); Chloride 95 mmol/L (98-107); Estimated CRCL calculation 14 ml/min; Estimated Glomerular Filt Rate 8; Glucose 154 mg/dL (65-105); Magnesium 1.8 mg/dL (1.6-2.3); Phosphorus 3.7 mg/dL (2.5-4.5); Potassium 3.2 mmol/L (3.4-5.0); Sodium 127 mmol/L (137-145)
[2020-09-11 07:31] LABS: Glucose Point of Care 147 mg/dl (65-105)
[2020-09-11] MEDS: LIPASE/AMYLASE/PROTEASE 12,000 UNITS CAP 1 CAP PO ×3 (08:18→21:11)
[2020-09-11] MEDS: ROSUVASTATIN 10 MG TABLET PO (08:19)
[2020-09-11] MEDS: PANTOPRAZOLE 40 MG TABLET PO (08:19)
[2020-09-11] MEDS: carvediloL 25 MG TABLET PO ×2 (08:19→21:15)
[2020-09-11] MEDS: NIFEdipine 30 MG TAB.ER.24 PO (08:20)
[2020-09-11] MEDS: SODIUM CHLORIDE 1 GM TABLET PO ×2 (08:20→21:12)
[2020-09-11] MEDS: FAMOTIDINE 20 MG TABLET PO ×2 (08:20→21:16)
[2020-09-11] MEDS: VITAMIN B CMPLX/VIT C/FOLIC AC 1 CAPSULE 1 CAP PO (08:20)
[2020-09-11] MEDS: cloNIDine HCL 0.1 MG TABLET PO (08:20)
[2020-09-11] MEDS: FUROSEMIDE 80 MG TABLET PO ×2 (08:20→21:10)
[2020-09-11] MEDS: SEVELAMER CARBONATE 800 MG TABLET PO ×3 (08:20→21:11)
[2020-09-11] MEDS: POTASSIUM CHLORIDE 20 MEQ TABLET.ER PO ×2 (08:20→21:12)
[2020-09-11] MEDS: LACTULOSE 20 GM/30 ML UDC PO ×2 (08:21→21:08)
[2020-09-11] MEDS: HEPARIN SODIUM 5,000 UNITS/ML VIAL 5000 UNITS SUB-Q ×2 (08:21→21:16)
[2020-09-11] MEDS: BUDESONIDE RESPULE NEB 0.5 MG/2 ML AMP INHALATION ×2 (08:36→23:48)
--- NOTE | 2020-09-11 12:03 | PM.PNNEP ---
Progress Note: A&P Assessment and Plan (1) End stage renal disease: Code(s): N18.6 - End stage renal disease Status: Chronic Assessment and Plan: On peritoneal dialysis and tolerating it well. Flows good in fluid is clear. She was seen at 11:30 a.m. (2) Hypokalemia: Code(s): E87.6 - Hypokalemia Status: Acute Assessment and Plan: low again today. now getting scheduled potassium twice a day (3) Altered mental status: Code(s): R41.82 - Altered mental status, unspecified Status: Acute Assessment and Plan: due to potential drug overdose The patient does not rachel medicines. Mental status is improved But still she is not herself. (4) Hyponatremia: Code(s): E87.1 - Hypo-osmolality and hyponatremia Status: Acute Assessment and Plan: chronic issues at baseline on salt tabs as an outpatient Sodium level is stable in the mid to high 120s. (5) UTI (urinary tract infection): Code(s): N39.0 - Urinary tract infection, site not specified Status: Acute Assessment and Plan: UA somewhat suggestive Blood and urine cultures are pending. on Ceftriaxone Will continue to follow. Subjective Date/time seen: 09/11/20 12:03 Interval history: Patient is more awake And animated but is still confused. She is somewhat paranoid. She feels like people are accusing her of breaking the law. Exam Narrative: Exam Narrative: GENERAL APPEARANCE: WD/EN female in no acute distress but confused CARDIOVASCULAR: RRR, normal S1 and S2, no rub or gallop RESPIRATORY: clear Bilaterally ABDOMEN: soft, nontender, nondistended, positive bowel sounds present EXTREMITIES: no edema NEUROLOGICAL: alert and oriented x 3. a bit scattered and tangential. Objective Data Vital Signs Vital Signs: Vital Signs - 24 hr 09/10/20 14:00 09/10/20 15:23 09/10/20 16:00 Temperature 35.9 C L Pulse Rate 80 77 Respiratory Rate 16 24 H Blood Pressure 123/57 L Pulse Oximetry 94 96 09/10/20 16:15 09/10/20 16:24 09/10/20 20:00 Temperature Pulse Rate 88 81 84 Respiratory Rate 20 20 Blood Pressure Pulse Oximetry 09/10/20 20:49 09/10/20 21:02 09/10/20 21:57 Temperature 36.4 C Pulse Rate 87 85 82 Respiratory Rate 20 20 18 Blood Pressure 129/68 Pulse Oximetry 96 09/11/20 00:00 09/11/20 00:14 09/11/20 00:22 Temperature Pulse Rate 88 83 84 Respiratory Rate 20 20 Blood Pressure Pulse Oximetry 09/11/20 03:52 09/11/20 03:55 09/11/20 04:00 Temperature Pulse Rate 83 87 91 Respiratory Rate 20 Blood Pressure 112/59 L Pulse Oximetry 100 09/11/20 05:48 09/11/20 08:00 09/11/20 08:19 Temperature 36.6 C Pulse Rate 87 86 88 Respiratory Rate 18 18 Blood Pressure 112/59 L Pulse Oximetry 100 94 09/11/20 08:36 09/11/20 08:52 09/11/20 09:15 Temperature Pulse Rate 88 91 86 Respiratory Rate 18 18 18 Blood Pressure Pulse Oximetry 98 94 Intake/Output Intake/Output: Intake & Output 09/08/20 09/09/20 09/10/20 09/11/20 23:59 23:59 23:59 23:59 Intake Total 140 608 1576 Output Total 0 800 Balance 550 150 500 Meds/Results Medications: Active Medications Generic Name Dose Route Start Last Admin Trade Name Freq PRN Reason Stop Dose Admin Albuterol 2.5 mg 09/09/20 12:00 09/11/20 08:36 Albuterol Sulfate Neb 2.5 Mg/0.5 Ml Inh INHALATION 2.5 mg Q4HRT FLIP Administration Lipase/Protease/Amylase 1 cap 09/09/20 17:00 09/11/20 08:18 Lipase/Amylase/Protease 12,000 Units Cap PO 1 cap TIDWM FLIP Administration Budesonide 0.5 mg 09/09/20 20:00 09/11/20 08:36 Budesonide Respule Neb 0.5 Mg/2 Ml Amp INHALATION 0.5 mg Q12HRT FLIP Administration Carvedilol 25 mg 09/09/20 21:00 09/11/20 08:19 Carvedilol 25 Mg Tablet PO 25 mg Q12HR FLIP Administration Clonidine HCl 0.1 mg 09/09/20 09:00 09/11/20 08:20 Clonid
--- NOTE | 2020-09-11 12:24 | PM.IMPN ---
Progress Note: A&P Assessment and Plan (1) Acute alteration in mental status: Code(s): R41.82 - Altered mental status, unspecified Status: Acute Assessment and Plan: 09/11/20 12:24 09/09 Patient is a 45-year-old female with history of end-stage renal disease on peritoneal dialysis patient is quite somnolent unable to provide any review of symptoms or history, her mother is present in the room providing history and some of the history is recorded from electronic chart, apparently patient was brought emergency department her yesterday after see a taken several tablets of Xanax to get high, patient was evaluated in emergency depart however patient's left AMA, 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 09/10 patient had a peritoneal dialysis last night this morning patient is little more awake and able to communicate and was able to swallow without difficulty, however patient does not recollect exactly happened by she was brought to the emergency, see denies taking any medication more than necessary, however her current mentation has improved, DW Dr. Gaytan patient will have return dialysis again today, patient is hypokalemic and hypomagnesemia will replace and monitor, clinically stable will have a PT OT evaluate the patient and further recommendation to follow. 09/11 today patient slightly better however still confused still does not know exactly what happened and by sees in hospital, later nursing staff spoke with the patient's sister and this is not her baseline, patient was seen by Nephrology who has seen her before and agrees the patient is still quite confused, patient will receive her peritoneal daily dialysis, so far there is no growth in urine and blood culture, will stop antibiotic, peritoneal fluid results are pending, will continue PT OT. Will discuss with the patient's family for the discharge planning. (2) UTI (urinary tract infection): Code(s): N39.0 - Urinary tract infection, site not specified Status: Acute Assessment and Plan: Patient unable to provide review of symptom however urine is suspicious for UTI being treated with Rocephin will follow urine culture and blood culture (3) End-stage renal disease on peritoneal dialysis: Code(s): N18.6 - End stage renal disease; Z99.2 - Dependence on renal dialysis Status: Acute Assessment and Plan: Patient on peritoneal dialysis patient missed her dialysis yesterday we have contacted Nephrology to resume patient dialysis further recommendation to follow (4) Hypokalemia: Code(s): E87.6 - Hypokalemia Status: Acute Assessment and Plan: Will supplement and monitor (5) Acute hyponatremia: Code(s): E87.1 - Hypo-osmolality and hyponatremia Status: Acute Assessment and Plan: Most likely secondary to hypovolemia will monitor patient be seen by driver examiner and further recommendation to (6) Sepsis: Code(s): A41.9 - Sepsis, unspecified organism Status: Acute Additional Plan Patient with a elevated white counts, acute mental status change with tachycardia and tachypnea patient with criteria for sepsis most likely secondary to UTI being treated Rocephin will follow-up on urine and blood culture and further recommendation to follow Subjective Date/time seen: 09/11/20 12:24 09/09 Patient is a 45-year-old female with history of end-stage renal disease on peritoneal dialysis patient is quite somnolent
[2020-09-11] MEDS: POTASSIUM CHLORIDE 20 MEQ PACKET (FOR LIQUID) 40 MEQ PO (13:49)
[2020-09-11] MEDS: ALBUTEROL SULFATE NEB 2.5 MG/0.5 ML INH (15:04)
[2020-09-11 16:59] LABS: Glucose Point of Care 166 mg/dl (65-105)
[2020-09-11] MEDS: ONDANSETRON INJ 4 MG/2 ML VIAL IV PUSH (17:29)
[2020-09-11 17:37] LABS: Glucose Point of Care 134 mg/dl (65-105)
--- NOTE | 2020-09-11 18:49 | PC.NURSE ---
Patient screaming and becoming verbally abusive to staff members. Patient removed IV line. Provider and clerical warehouseman notified.
[2020-09-11] MEDS: MEGESTROL ACETATE (*CHEMO) 40 MG TABLET 120 MG PO (21:13)
[2020-09-11] MEDS: INSULIN GLARGINE (*BKC) 100 UNITS/ML 30 UNITS SUB-Q (21:27)
[2020-09-11 22:05] LABS: Glucose Point of Care 215 mg/dl (65-105)
[2020-09-12] VITALS (18 sets, daily range): BP systolic 96–156; BP diastolic 54–99; PULSE 80–114; RESP 16–22; TEMP 35.9–36.7; O2SAT 96–98
[2020-09-12] MEDS: QUEtiapine FUMARATE 25 MG TABLET 75 MG PO (01:02)
[2020-09-12] MEDS: IPRATROPIUM BR 0.02% INH SOLN 0.5 MG/2.5 ML VIAL INHALATION ×6 (04:12→21:32)
[2020-09-12] MEDS: ALBUTEROL SULFATE NEB 2.5 MG/0.5 ML INH INHALATION ×5 (04:12→21:15)
[2020-09-12] MEDS: BUDESONIDE RESPULE NEB 0.5 MG/2 ML AMP INHALATION ×2 (07:47→21:15)
[2020-09-12 08:31] LABS: Glucose Point of Care 67 mg/dl (65-105)
[2020-09-12 08:38] LABS: Hematocrit 33.8 % (37.0-47.0); Hemoglobin 11.1 g/dL (12.0-15.0); Mean Corpuscular HGB Conc 32.8 g/dl (32-36); Mean Corpuscular Hemoglobin 29.3 pg (26-34); Mean Corpuscular Volume 89.2 fl (80-100); Mean Platelet Volume 10.1 fl (7.4-10.4); Platelet Count Result 261 k/mm3 (150-375); Red Blood Count 3.79 M/mm3 (4.2-5.4); Red Cell Distribution Width 14.2 % (11.5-14.5); White Blood Count 17.7 K/mm3 (4.5-10.0)
[2020-09-12 09:32] LABS: Albumin Level 2.8 g/dL (3.5-5.1); Anion Gap 6 mmol/L (8-16); Blood Urea Nitrogen 25 mg/dL (7-17); Calcium 10.3 mg/dL (8.4-10.2); Carbon Dioxide 28 mmol/L (22-30); Chloride 97 mmol/L (98-107); Estimated CRCL calculation 13 ml/min; Estimated Glomerular Filt Rate 7; Glucose 55 mg/dL (65-105); Magnesium 1.7 mg/dL (1.6-2.3); Phosphorus 3.5 mg/dL (2.5-4.5); Sodium 131 mmol/L (137-145)
[2020-09-12 10:06] LABS: Glucose Point of Care 82 mg/dl (65-105)
[2020-09-12 12:26] LABS: Glucose Point of Care 104 mg/dl (65-105)
--- NOTE | 2020-09-12 12:37 | P.PNNP_ITS ---
Progress Note: A&P Assessment and Plan (1) End stage renal disease: Code(s): N18.6 - End stage renal disease Status: Chronic Assessment and Plan: * On peritoneal dialysis * BUN and creatinine are under good control. * Flows good in fluid is clear. * (2) Hypokalemia: Code(s): E87.6 - Hypokalemia Status: Acute Assessment and Plan: * low again today. * Check again in the morning. She is on twice a day potassium now. * She is not eating all that well. (3) Altered mental status: Code(s): R41.82 - Altered mental status, unspecified Status: Acute Assessment and Plan: * This had improved but is now worse again. * Getting good dialysis I do not think this is uremia. * Other electrolytes look okay. * She is not on any mind altering medications. * Sodium level is good * Her calcium is high and her albumin is low so maybe this is symptomatic hypercalcemia. (4) Hyponatremia: Code(s): E87.1 - Hypo-osmolality and hyponatremia Status: Acute Assessment and Plan: * chronic issues at baseline * on salt tabs as an outpatient * Sodium level is stable in the mid to high 120s. (5) UTI (urinary tract infection): Code(s): N39.0 - Urinary tract infection, site not specified Status: Acute Assessment and Plan: * UA somewhat suggestive * Blood and urine cultures are pending. * on Ceftriaxone Subjective Date/time seen: 09/12/20 12:37 Interval history: Patient is awake. Even more confused. Older sister is in the room. Exam Narrative: Exam Narrative: GENERAL APPEARANCE: WD/EN female in no acute distress but confused CARDIOVASCULAR: RRR, normal S1 and S2, no rub or gallop RESPIRATORY: clear Bilaterally ABDOMEN: soft, nontender, nondistended, positive bowel sounds present EXTREMITIES: no edema Skin no rash Objective Data Vital Signs Vital Signs: Vital Signs - 24 hr 09/11/20 12:47 09/11/20 14:00 09/11/20 15:06 Temperature 35.9 C L Pulse Rate 89 81 88 Respiratory Rate 18 18 18 Blood Pressure 94/61 L Pulse Oximetry 98 09/11/20 15:14 09/11/20 16:00 09/11/20 20:00 Temperature Pulse Rate 86 83 90 Respiratory Rate 18 18 Blood Pressure Pulse Oximetry 96 09/11/20 21:15 09/11/20 22:00 09/11/20 23:50 Temperature 36.8 C Pulse Rate 86 86 99 Respiratory Rate 16 18 Blood Pressure 118/60 Pulse Oximetry 98 96 09/12/20 00:02 09/12/20 04:13 09/12/20 04:19 Temperature Pulse Rate 97 87 86 Respiratory Rate 16 18 18 Blood Pressure Pulse Oximetry 09/12/20 06:00 09/12/20 07:45 09/12/20 07:47 Temperature 36.1 C L Pulse Rate 90 88 Respiratory Rate 18 18 Blood Pressure 100/56 L Pulse Oximetry 96 97 09/12/20 08:00 Temperature Pulse Rate 80 Respiratory Rate 18 Blood Pressure Pulse Oximetry Intake/Output Intake/Output: Intake & Output 09/09/20 09/10/20 09/11/20 09/12/20 23:59 23:59 23:59 23:59
--- NOTE | 2020-09-12 12:37 | PM.PNNEP ---
Progress Note: A&P Assessment and Plan (1) End stage renal disease: Code(s): N18.6 - End stage renal disease Status: Chronic Assessment and Plan: On peritoneal dialysis BUN and creatinine are under good control. Flows good in fluid is clear. (2) Hypokalemia: Code(s): E87.6 - Hypokalemia Status: Acute Assessment and Plan: low again today. Check again in the morning. She is on twice a day potassium now. She is not eating all that well. (3) Altered mental status: Code(s): R41.82 - Altered mental status, unspecified Status: Acute Assessment and Plan: This had improved but is now worse again. Getting good dialysis I do not think this is uremia. Other electrolytes look okay. She is not on any mind altering medications. Sodium level is good Her calcium is high and her albumin is low so maybe this is symptomatic hypercalcemia. (4) Hyponatremia: Code(s): E87.1 - Hypo-osmolality and hyponatremia Status: Acute Assessment and Plan: chronic issues at baseline on salt tabs as an outpatient Sodium level is stable in the mid to high 120s. (5) UTI (urinary tract infection): Code(s): N39.0 - Urinary tract infection, site not specified Status: Acute Assessment and Plan: UA somewhat suggestive Blood and urine cultures are pending. on Ceftriaxone Subjective Date/time seen: 09/12/20 12:37 Interval history: Patient is awake. Even more confused. Older sister is in the room. Exam Narrative: Exam Narrative: GENERAL APPEARANCE: WD/EN female in no acute distress but confused CARDIOVASCULAR: RRR, normal S1 and S2, no rub or gallop RESPIRATORY: clear Bilaterally ABDOMEN: soft, nontender, nondistended, positive bowel sounds present EXTREMITIES: no edema Skin no rash Objective Data Vital Signs Vital Signs: Vital Signs - 24 hr 09/11/20 12:47 09/11/20 14:00 09/11/20 15:06 Temperature 35.9 C L Pulse Rate 89 81 88 Respiratory Rate 18 18 18 Blood Pressure 94/61 L Pulse Oximetry 98 09/11/20 15:14 09/11/20 16:00 09/11/20 20:00 Temperature Pulse Rate 86 83 90 Respiratory Rate 18 18 Blood Pressure Pulse Oximetry 96 09/11/20 21:15 09/11/20 22:00 09/11/20 23:50 Temperature 36.8 C Pulse Rate 86 86 99 Respiratory Rate 16 18 Blood Pressure 118/60 Pulse Oximetry 98 96 09/12/20 00:02 09/12/20 04:13 09/12/20 04:19 Temperature Pulse Rate 97 87 86 Respiratory Rate 16 18 18 Blood Pressure Pulse Oximetry 09/12/20 06:00 09/12/20 07:45 09/12/20 07:47 Temperature 36.1 C L Pulse Rate 90 88 Respiratory Rate 18 18 Blood Pressure 100/56 L Pulse Oximetry 96 97 09/12/20 08:00 Temperature Pulse Rate 80 Respiratory Rate 18 Blood Pressure Pulse Oximetry Intake/Output Intake/Output: Intake & Output 09/09/20 09/10/20 09/11/20 09/12/20 23:59 23:59 23:59 23:59 Intake Total 533 715 8900 260 Output Total 0 800 0 Balance 550 150 980 260 Meds/Results Medications: Active Medications Generic Name Dose Route Start Last Admin Trade Name Makayla PRN Reason Stop Dose Admin Albuterol 2.5 mg 09/09/20 12:00 09/12/20 07:45 Albuterol Sulfate Neb 2.5 Mg/0.5 Ml Inh INHALATION 2.5 mg Q4HRT FLIP Administration Lipase/Protease/Amylase 1 cap 09/09/20 17:00 09/11/20 21:11 Lipase/Amylase/Protease 12,000 Units Cap PO 1 cap TIDWM FLIP Administration Budesonide 0.5 mg 09/12/20 08:00 09/12/20 07:47 Budesonide Respule Neb 0.5 Mg/2 Ml Amp INHALATION 0.5 mg Q12HRT FLIP Administration Carvedilol 25 mg 09/09/20 21:00 09/11/20 21:15 Carvedilol 25 Mg Tablet PO 25 mg Q12HR FLIP Administration Clonidine HCl 0.1 mg 09/09/20 09:00 09/11/20 08:20 Clonidine Hcl 0.1 Mg Tablet PO 0.1 mg DAILY FLIP Administration Dextrose 12.5 gm 09/09/20 18:58 Dextrose 50% 25 Gm/50 Ml Syringe IV
[2020-09-12] MEDS: SEVELAMER CARBONATE 800 MG TABLET PO ×2 (12:55→16:49)
[2020-09-12] MEDS: POTASSIUM CHLORIDE 20 MEQ TABLET.ER PO ×2 (12:55→16:50)
[2020-09-12] MEDS: SODIUM CHLORIDE 1 GM TABLET PO (12:56)
[2020-09-12] MEDS: VITAMIN B CMPLX/VIT C/FOLIC AC 1 CAPSULE 1 CAP PO (12:56)
[2020-09-12] MEDS: FAMOTIDINE 20 MG TABLET PO ×2 (12:57→21:38)
[2020-09-12] MEDS: HEPARIN SODIUM 5,000 UNITS/ML VIAL 5000 UNITS SUB-Q ×2 (12:57→21:38)
[2020-09-12] MEDS: LACTULOSE 20 GM/30 ML UDC PO ×2 (12:58→16:49)
[2020-09-12] MEDS: FUROSEMIDE 80 MG TABLET PO (12:58)
[2020-09-12] MEDS: LIPASE/AMYLASE/PROTEASE 12,000 UNITS CAP 1 CAP PO ×2 (13:26→16:50)
[2020-09-12] MEDS: PANTOPRAZOLE 40 MG TABLET PO (13:26)
[2020-09-12] MEDS: SCOPOLAMINE 1.5 MG PATCH 1 MG TRANSDERM (13:26)
[2020-09-12] MEDS: ROSUVASTATIN 10 MG TABLET PO (13:26)
[2020-09-12] MEDS: diphenhydrAMINE HCl CAP 25 MG CAPSULE 50 MG PO (13:28)
--- NOTE | 2020-09-12 13:31 | PM.IMPN ---
Progress Note: A&P Assessment and Plan (1) Acute alteration in mental status: Code(s): R41.82 - Altered mental status, unspecified Status: Acute Assessment and Plan: 09/12/20 13:31 09/09 Patient is a 45-year-old female with history of end-stage renal disease on peritoneal dialysis patient is quite somnolent unable to provide any review of symptoms or history, her mother is present in the room providing history and some of the history is recorded from electronic chart, apparently patient was brought emergency department her yesterday after see a taken several tablets of Xanax to get high, patient was evaluated in emergency depart however patient's left AMA, this primary care sales representative patient was found somnolent on the floor EMS was called and patient was brought to the emergency department there are no more details available what exactly transpired, my suspicion patient has not received peritoneal dialysis and this may cause her to be somnolent as patient had taken benzodiazepine as well as opiates, will contact patient nephrology and resume peritoneal dialysis as soon as possible this may help patient mentation once clinically stable will have a PT OT evaluate the patient and further recommendation to follow. 09/10 patient had a peritoneal dialysis last night this morning patient is little more awake and able to communicate and was able to swallow without difficulty, however patient does not recollect exactly happened by she was brought to the emergency, see denies taking any medication more than necessary, however her current mentation has improved, DW Dr. Gaytan patient will have return dialysis again today, patient is hypokalemic and hypomagnesemia will replace and monitor, clinically stable will have a PT OT evaluate the patient and further recommendation to follow. 09/11 today patient slightly better however still confused still does not know exactly what happened and by sees in hospital, later nursing staff spoke with the patient's sister and this is not her baseline, patient was seen by Nephrology who has seen her before and agrees the patient is still quite confused, patient will receive her peritoneal daily dialysis, so far there is no growth in urine and blood culture, will stop antibiotic, peritoneal fluid results are pending, will continue PT OT. Will discuss with the patient's family for the discharge planning. 09/12 today patient is more agitated and hallucinating not very cooperative, patient was given Zyprexa 5 mg IM which did improve and calm her down, her sister is present in the room, patient unable to provide any review of symptom. (2) UTI (urinary tract infection): Code(s): N39.0 - Urinary tract infection, site not specified Status: Acute Assessment and Plan: Patient unable to provide review of symptom however urine is suspicious for UTI being treated with Rocephin will follow urine culture and blood culture (3) End-stage renal disease on peritoneal dialysis: Code(s): N18.6 - End stage renal disease; Z99.2 - Dependence on renal dialysis Status: Acute Assessment and Plan: Patient on peritoneal dialysis patient missed her dialysis yesterday we have contacted Nephrology to resume patient dialysis further recommendation to follow (4) Hypokalemia: Code(s): E87.6 - Hypokalemia Status: Acute Assessment and Plan: Will supplement and monitor (5) Acute hyponatremia: Code(s): E87.1 - Hypo-osmolality and hyponatremia Status: Acute Assessment and Plan: Most likely secondary to hypovolemia will monitor patient be seen by clamp carrier operator and further recommendation to (6) Sepsis: Code(s): A41.9 - Sepsis, unspecified organism Status: Acute Additional Plan Patient with a elevated white counts, acute mental status change with tachycardia and tachypnea patient with criteria for sepsis most likely secondary to UTI being treated Rocephin will follow-up on urin
[2020-09-12] MEDS: CALCITONIN SALMON INJ 400 UNITS/2 ML VIAL 230 UNITS SUB-Q ×4 (15:15→22:41)
[2020-09-12] MEDS: NICOTINE (*PBKC) 21 MG PATCH 1 PATCH TRANSDERM (15:28)
--- NOTE | 2020-09-12 15:29 | PCPTNOTE ---
attempted to see pt x 2 for physical therapy- cont per poc
[2020-09-12 15:55] LABS: Glucose Point of Care 92 mg/dl (65-105)
[2020-09-12] MEDS: MEGESTROL ACETATE (*CHEMO) 40 MG TABLET 120 MG PO (16:49)
[2020-09-12 17:27] LABS: Glucose Point of Care 125 mg/dl (65-105)
[2020-09-12] MEDS: OLANZapine 10 MG INJ VIAL 5 MG IM ×2 (17:30→18:39)
[2020-09-12] MEDS: LORazepam INJ (*CRX) 2 MG/ML VIAL IM (18:38)
--- NOTE | 2020-09-12 19:27 | PC.NURSE ---
This pt was agitated and climbing out of bed repeatedly from beginning of shift until her sister arrived. made aware and ordered 5 mg zyprexa. By time I went to give the pt was calm with sister but still needed frequent redirection. Informed MD and held one time zyprexa for future use for agitation. Approximately 1400, pt stated the need to perform a procedure on her face. Pt picking her face with a variety of reasons, including surgery, boils, snakes, spiders, etc. Pt unable to be redirected. Sister left around 1700. Different sitters tried to placate pt. Pt continuing to have tactile, visual and auditory hallucinations. At 1730, I gave zyprexa because pt trying to climb out of bed and unsteady on feet. At 1750 I called MD to request additional help for pt. At ~1800, pt became combative, swinging at staff, refusing to get back bed, this RN called a matthew escobar. MD arrived to scene and ordered 5 mg zyprexa IM along with 2 mg ativan IM. Pt still acting out, but less violently so.
[2020-09-12 20:16] LABS: Glucose Point of Care 136 mg/dl (65-105)
[2020-09-12 21:02] LABS: Basophils Absolute Auto 0.1 K/mm3 (0.0-0.1); Basophils Percent Auto 0.4 % (0.2-1.2); Eosinophils Percent Auto 0.2 % (0-4.4); Hematocrit 36.3 % (37.0-47.0); Immature Granulocyte Absolute 0.07 K/mm3 (0.00-0.031); Immature Granulocyte Percent A 0.4 % (0-0.5); Lymphocytes Absolute Auto 2.28 K/mm3 (0.9-3.2); Lymphocytes Percent Auto 12.6 % (18.3-44.2); Mean Corpuscular HGB Conc 33.1 g/dl (32-36); Mean Corpuscular Hemoglobin 29.3 pg (26-34); Mean Corpuscular Volume 88.8 fl (80-100); Mean Platelet Volume 9.8 fl (7.4-10.4); Monocytes Absolute Auto 1.6 K/mm3 (0.1-0.6); Neutrophils Percent Auto 77.4 % (45.5-73.1); Platelet Count Result 242 k/mm3 (150-375); Red Blood Count 4.09 M/mm3 (4.2-5.4); Red Cell Distribution Width 14.2 % (11.5-14.5); White Blood Count 18.1 K/mm3 (4.5-10.0)
[2020-09-12 21:13] LABS: Alanine Aminotransferase 25 U/L (4-35); Albumin Level 2.9 g/dL (3.5-5.1); Alkaline Phosphatase 96 U/L (38-126); Anion Gap 10 mmol/L (8-16); Aspartate Amino Transferase 31 U/L (14-36); Bilirubin,Total 0.4 mg/dL (0.2-1.3); Blood Urea Nitrogen 26 mg/dL (7-17); Calcium 10.4 mg/dL (8.4-10.2); Carbon Dioxide 24 mmol/L (22-30); Chloride 97 mmol/L (98-107); Estimated CRCL calculation 13 ml/min; Estimated Glomerular Filt Rate 7; Glucose 140 mg/dL (65-105); Magnesium 1.6 mg/dL (1.6-2.3); Phosphorus 3.9 mg/dL (2.5-4.5); Potassium 3.5 mmol/L (3.4-5.0); Sodium 131 mmol/L (137-145)
[2020-09-12 21:15] LABS: Ammonia < 9 umol/L (9-30)
[2020-09-12] MEDS: OLANZapine 10 MG INJ VIAL IM (21:23)
[2020-09-12] MEDS: carvediloL 25 MG TABLET PO (21:36)
[2020-09-12] MEDS: levoFLOXacin 750 MG TABLET PO (21:37)
[2020-09-12] MEDS: diphenhydrAMINE HCl INJ 50 MG/ML VIAL 25 MG IM (21:41)
[2020-09-13] VITALS (14 sets, daily range): BP systolic 117–167; BP diastolic 68–96; PULSE 71–125; RESP 17–32; TEMP 36.1–37.9; O2SAT 97–98; BMI 39.0
[2020-09-13] MEDS: ALBUTEROL SULFATE NEB 2.5 MG/0.5 ML INH INHALATION ×3 (00:26→08:12)
[2020-09-13] MEDS: IPRATROPIUM BR 0.02% INH SOLN 0.5 MG/2.5 ML VIAL INHALATION ×3 (00:26→08:11)
[2020-09-13] MEDS: diphenhydrAMINE HCl INJ 50 MG/ML VIAL 25 MG IM (04:05)
[2020-09-13] MEDS: LORazepam INJ (*CRX) 2 MG/ML VIAL 1 MG IM (04:05)
[2020-09-13] MEDS: OLANZapine 10 MG INJ VIAL IM (04:36)
[2020-09-13 05:31] LABS: Glucose Point of Care 199 mg/dl (65-105)
[2020-09-13] MEDS: oxyCODONE HCL (*CRX) 5 MG TAB IR 10 MG PO (05:34)
--- NOTE | 2020-09-13 06:47 | PC.NURSE ---
Dr Beal was called at 2030 for a dose of Zyprexa and Benadryl. Patient had been reported to have hallucinations and resisting staff during day shift. During the night, patient yelled about family members and other unidentified people. She has been insisting that there are poisonous snakes around the room and that she was with snakes. She also talked about dogs that she needed to take care of. She constantly pulled at her can-dialysis catheter throughout the night, requiring frequent redirection. Dialysis was called twice due to flow errors, constant pulling at her catheter, and possible damage to her dialysis site. She also made multiple attempts to get out of bed, and reached for things over the edge of her bed. She got out of bed on 3 occasions, saying that she wanted to leave to take care of her dogs. Dr Beal attempted another one time order of Ativan, Zyprexa, and Benadryl at 0413. She pulled off her scopolamine patch and wristband. She also pulled off her gown multiple times. Again it appeared to have little effect on the patient's behavior. Dr. Beal was called a third time and she recommended a vest restraint. She was reminded that she could not use restraints on this garg and she stated that she would have day shift reevaluate her.
[2020-09-13 06:48] LABS: Anion Gap 10 mmol/L (8-16); Blood Urea Nitrogen 24 mg/dL (7-17); Calcium 10.3 mg/dL (8.4-10.2); Carbon Dioxide 26 mmol/L (22-30); Chloride 97 mmol/L (98-107); Estimated CRCL calculation 14 ml/min; Estimated Glomerular Filt Rate 8; Glucose 182 mg/dL (65-105); Magnesium 1.6 mg/dL (1.6-2.3); Phosphorus 3.4 mg/dL (2.5-4.5); Potassium 3.3 mmol/L (3.4-5.0); Sodium 133 mmol/L (137-145)
[2020-09-13 07:43] LABS: Glucose Point of Care 201 mg/dl (65-105)
[2020-09-13] MEDS: INSULIN ASPART (*BKC) 100 UNITS/ML SUB-Q ×2 (07:43→17:05)
[2020-09-13] MEDS: LIPASE/AMYLASE/PROTEASE 12,000 UNITS CAP 1 CAP PO ×3 (07:59→17:00)
[2020-09-13] MEDS: SEVELAMER CARBONATE 800 MG TABLET PO ×3 (07:59→17:00)
[2020-09-13] MEDS: NIFEdipine 30 MG TAB.ER.24 PO (08:01)
[2020-09-13] MEDS: FUROSEMIDE 80 MG TABLET PO ×2 (08:01→17:00)
[2020-09-13] MEDS: carvediloL 25 MG TABLET PO (08:01)
[2020-09-13] MEDS: HEPARIN SODIUM 5,000 UNITS/ML VIAL 5000 UNITS SUB-Q ×2 (08:02→20:46)
[2020-09-13] MEDS: LACTULOSE 20 GM/30 ML UDC PO (08:02)
[2020-09-13] MEDS: SODIUM CHLORIDE 1 GM TABLET PO ×2 (08:03→17:01)
[2020-09-13] MEDS: ERGOCALCIFEROL 50,000 UNIT CAPSULE 50000 UNITS PO (08:03)
[2020-09-13] MEDS: PANTOPRAZOLE 40 MG TABLET PO (08:03)
[2020-09-13] MEDS: VITAMIN B CMPLX/VIT C/FOLIC AC 1 CAPSULE 1 CAP PO (08:03)
[2020-09-13] MEDS: POTASSIUM CHLORIDE 20 MEQ TABLET.ER PO ×2 (08:03→17:00)
[2020-09-13] MEDS: FAMOTIDINE 20 MG TABLET PO ×2 (08:04→20:46)
[2020-09-13] MEDS: cloNIDine HCL 0.1 MG TABLET PO (08:04)
[2020-09-13] MEDS: ROSUVASTATIN 10 MG TABLET PO (08:04)
[2020-09-13] MEDS: CALCITONIN SALMON INJ 400 UNITS/2 ML VIAL 230 UNITS SUB-Q ×4 (08:11→20:47)
[2020-09-13] MEDS: BUDESONIDE RESPULE NEB 0.5 MG/2 ML AMP INHALATION ×2 (08:12→20:42)
--- NOTE | 2020-09-13 09:07 | PC.NURSE ---
Pt will not take medication because she states that she does not need them because she is dying anyway.
--- NOTE | 2020-09-13 09:31 | PCPTNOTE ---
PT held today. Patient being transferred to ICU. Will await further orders.
--- NOTE | 2020-09-13 09:50 | WPDCNINT ---
Assessment and Plan Assessment and plan (1) Encephalopathy acute: Code(s): G93.40 - Encephalopathy, unspecified Status: Acute Assessment and Plan: Likely toxic metabolic encephalopathy and delirium as evidence from waxing and waning status, hallucination and delusion. Patient has history of depression but I do not see her on any antidepressants as an outpatient. She does take Xanax p.r.n. which she did take spoke frequently as per her sister. I do not know of any other psychiatric problems at baseline. Her Head CT was negative. Ammonia was normal. ABG did show hypercarbia and patient is not that severely uremic. Patient is awake, alert, partially oriented, agitated and not fully cooperative. Patient has UTI, has received several drugs including Zyprexa Ativan and Librium which could be contributing Admission to ICU and close monitoring Precedex infusion Sitter at bedside Hold all scheduled sedatives and use p.r.n. Ativan only for agitation Patient does not appear to have a heavy alcohol use history Neurochecks Will consider MRI if does not improve Psychiatric evaluation once medically stable (2) Delirium: Code(s): R41.0 - Disorientation, unspecified Status: Acute Assessment and Plan: See above (3) Benzodiazepine abuse: Code(s): F13.10 - Sedative, hypnotic or anxiolytic abuse, uncomplicated Status: Acute Assessment and Plan: See above (4) End-stage renal disease on peritoneal dialysis: Code(s): N18.6 - End stage renal disease; Z99.2 - Dependence on renal dialysis Status: Acute Assessment and Plan: Continue peritoneal dialysis as per nephrology Patient was on dialysis and was disconnected prior to transfer to ICU. Next session will be tonight (5) UTI (urinary tract infection): Code(s): N39.0 - Urinary tract infection, site not specified Status: Acute Assessment and Plan: Cultures negative although UA suggested UTI She is on antibiotics due to lack of good history Currently on Levaquin (6) Hypertension: Code(s): I10 - Essential (primary) hypertension Status: Acute Assessment and Plan: Patient is on clonidine Coreg Procardia and Lasix (7) Diabetes: Code(s): E11.9 - Type 2 diabetes mellitus without complications Status: Acute Assessment and Plan: Sliding scale insulin Additional Plan DVT prophylaxis -subcu heparin Stress ulcer prophylaxis -patient is on Pepcid Nutrition -diabetic diet Code Status - Full Code Patient's sister updated at bedside Usability Specialist Consult Note Consult date: 09/13/20 Time Seen: 11:00 HPI: Bryant Flores is a 45 year old female with past medical history of end-stage renal disease on peritoneal dialysis who was admitted on 09/09 with chief complaint of altered mental status drowsiness. History on admission indicated the patient was taking high amount of Xanax and was sounds somnolent by family member and EMS was called. She was also noncompliant with peritoneal dialysis. During workup for head CT was negative, her UA suggested UTI and her UDS was positive for benzodiazepines. Ammonia was normal and ABG did not suggest hypercarbia. . Blood and urine cultures are negative as of now. She was started on Rocephin. PD was continued on the floor Throughout the hospital stay patient has been having issues with agitational and waxing and waning mental status. Patient also had hallucinations received several doses of Zyprexa, Ativan and Librium. Patient is being transferred to ICU for closer monitoring, more focus Nursing Care and management of her agitation and encephalopathy. When I saw the patient she was awake alert but only oriented x1. She was hallucinating and delusional. She states that she did not take any pills and was looking for pills in a bed. She told me to shot of dogs and delete the TV. But she did answer questions when asked although history was unreliable as
--- NOTE | 2020-09-13 10:30 | PC.NURSE ---
This patient, Bryant Flores, was transferred to [ICU] on 09/13/20 . Personal belongings sent with patient. Report given to [[place] ]. Called at 1030. Appropriate documentation sent with patient.
--- NOTE | 2020-09-13 10:51 | PC.NURSE ---
Waiting on peritoneal dialysis nurse to disconnect pt before transferring to ICU at this time.
--- NOTE | 2020-09-13 11:11 | P.PNNP_ITS ---
Progress Note: A&P Assessment and Plan (1) End stage renal disease: Code(s): N18.6 - End stage renal disease Status: Chronic Assessment and Plan: * On peritoneal dialysis * BUN and creatinine are under good control. * Flows good in fluid is clear. * volume status looks okay. (2) Hypokalemia: Code(s): E87.6 - Hypokalemia Status: Acute Assessment and Plan: * low again today. * Supplement potassium. (3) Altered mental status: Code(s): R41.82 - Altered mental status, unspecified Status: Acute Assessment and Plan: * This had improved but is now worse again. * Getting good dialysis I do not think this is uremia. * Sodium level is stable. * Ammonia level is okay * Calcium is high. She is getting Calcitonin. They cannot keep an IV in her because of her agitation so she did not get pamidronate. * She is not on any mind altering medications. * being transferred to the ICU due to agitation (4) Hyponatremia: Code(s): E87.1 - Hypo-osmolality and hyponatremia Status: Acute Assessment and Plan: * chronic issues at baseline * on salt tabs * Sodium level is stable in the mid to high 120s. (5) UTI (urinary tract infection): Code(s): N39.0 - Urinary tract infection, site not specified Status: Acute Assessment and Plan: * UA somewhat suggestive * Blood and urine cultures are pending. * on Ceftriaxone Subjective Date/time seen: 09/13/20 11:11 Interval history: Patient is awake. agitated. Making no sense. Hallucinating. She points to a laundry hamper and says that that is a container of dog food. There is a sitter in the room. Exam Narrative: Exam Narrative: GENERAL APPEARANCE: WD/EN female in no acute distress but confused CARDIOVASCULAR: RRR, normal S1 and S2, no rub or gallop RESPIRATORY: clear Bilaterally ABDOMEN: soft, nontender, nondistended, positive bowel sounds present EXTREMITIES: no edema Skin no rash NEURO: Alert but disoriented and agitated. No focal sign Objective Data Vital Signs Vital Signs: Vital Signs - 24 hr 09/12/20 12:37 09/12/20 12:45 09/12/20 14:00 Temperature 36.7 C Pulse Rate 96 96 97 Respiratory Rate 18 16 18 Blood Pressure 96/54 L Pulse Oximetry 97 09/12/20 16:26 09/12/20 16:35 09/12/20 20:00 Temperature Pulse Rate 100 96 112 H Respiratory Rate 16 16 20 Blood Pressure Pulse Oximetry 98 09/12/20 21:15 09/12/20 21:28 09/12/20 21:36 Temperature Pulse Rate 114 H 107 H 107 H Respiratory Rate 20 20 Blood Pressure Pulse Oximetry 98 09/12/20 22:00 09/13/20 00:30 09/13/20 00:42 Temperature 36.4 C Pulse Rate 97 125 H 112 H Respiratory Rate 20 18 20 Blood Pressure 108/67 Pulse Oximetry 98 09/13/20 04:21 09/13/20 08:01 09/13/20 08:15 Temperature Pulse Rate 111 H 100 71 Respiratory Rate 18 20 Blood Pressure Pulse Oximetry 97 Intake/Output Intake/Output: Intake & Output 09/10/20 09/11/20 09/12/20 09/13/20 23:59 23:59 23:59 23:59
--- NOTE | 2020-09-13 11:11 | PM.PNNEP ---
Progress Note: A&P Assessment and Plan (1) End stage renal disease: Code(s): N18.6 - End stage renal disease Status: Chronic Assessment and Plan: On peritoneal dialysis BUN and creatinine are under good control. Flows good in fluid is clear. volume status looks okay. (2) Hypokalemia: Code(s): E87.6 - Hypokalemia Status: Acute Assessment and Plan: low again today. Supplement potassium. (3) Altered mental status: Code(s): R41.82 - Altered mental status, unspecified Status: Acute Assessment and Plan: This had improved but is now worse again. Getting good dialysis I do not think this is uremia. Sodium level is stable. Ammonia level is okay Calcium is high. She is getting Calcitonin. They cannot keep an IV in her because of her agitation so she did not get pamidronate. She is not on any mind altering medications. being transferred to the ICU due to agitation (4) Hyponatremia: Code(s): E87.1 - Hypo-osmolality and hyponatremia Status: Acute Assessment and Plan: chronic issues at baseline on salt tabs Sodium level is stable in the mid to high 120s. (5) UTI (urinary tract infection): Code(s): N39.0 - Urinary tract infection, site not specified Status: Acute Assessment and Plan: UA somewhat suggestive Blood and urine cultures are pending. on Ceftriaxone Subjective Date/time seen: 09/13/20 11:11 Interval history: Patient is awake. agitated. Making no sense. Hallucinating. She points to a laundry hamper and says that that is a container of dog food. There is a sitter in the room. Exam Narrative: Exam Narrative: GENERAL APPEARANCE: WD/EN female in no acute distress but confused CARDIOVASCULAR: RRR, normal S1 and S2, no rub or gallop RESPIRATORY: clear Bilaterally ABDOMEN: soft, nontender, nondistended, positive bowel sounds present EXTREMITIES: no edema Skin no rash NEURO: Alert but disoriented and agitated. No focal sign Objective Data Vital Signs Vital Signs: Vital Signs - 24 hr 09/12/20 12:37 09/12/20 12:45 09/12/20 14:00 Temperature 36.7 C Pulse Rate 96 96 97 Respiratory Rate 18 16 18 Blood Pressure 96/54 L Pulse Oximetry 97 09/12/20 16:26 09/12/20 16:35 09/12/20 20:00 Temperature Pulse Rate 100 96 112 H Respiratory Rate 16 16 20 Blood Pressure Pulse Oximetry 98 09/12/20 21:15 09/12/20 21:28 09/12/20 21:36 Temperature Pulse Rate 114 H 107 H 107 H Respiratory Rate 20 20 Blood Pressure Pulse Oximetry 98 09/12/20 22:00 09/13/20 00:30 09/13/20 00:42 Temperature 36.4 C Pulse Rate 97 125 H 112 H Respiratory Rate 20 18 20 Blood Pressure 108/67 Pulse Oximetry 98 09/13/20 04:21 09/13/20 08:01 09/13/20 08:15 Temperature Pulse Rate 111 H 100 71 Respiratory Rate 18 20 Blood Pressure Pulse Oximetry 97 Intake/Output Intake/Output: Intake & Output 09/10/20 09/11/20 09/12/20 09/13/20 23:59 23:59 23:59 23:59 Intake Total 150 1780 1050 100 Output Total 0 800 0 0 Balance 793 856 7264 100 Meds/Results Medications: Active Medications Generic Name Dose Route Start Last Admin Trade Name Freq PRN Reason Stop Dose Admin Albuterol 2.5 mg 09/13/20 08:28 Albuterol Sulfate Neb 2.5 Mg/0.5 Ml Inh INHALATION Q4HRT PRN Shortness Of Breath Lipase/Protease/Amylase 1 cap 09/09/20 17:00 09/13/20 07:59 Lipase/Amylase/Protease 12,000 Units Cap PO 1 cap TIDWM FLIP Administration Budesonide 0.5 mg 09/12/20 08:00 09/13/20 08:12 Budesonide Respule Neb 0.5 Mg/2 Ml Amp INHALATION 0.5 mg Q12HRT FLIP Administration Calcitonin [place] 230 units 09/12/20 12:45 09/13/20 08:11 Calcitonin [place] Inj 400 Units/2 Ml Vial SUB-Q 09/14/20 21:01 230 units Q12HR FLIP Administration Calcitonin [place] 230 units 09/12/20 12:55 09/13/20 08:12 Calciton
--- NOTE | 2020-09-13 11:18 | ECG_ITS ---
Measurements Intervals Sharon Rate: 112 P: 215 MD: 161 QRS: 42 QRSD: 82 T: 9 QT: 294 QTc: 401 Interpretive Statements SINUS OR ECTOPIC ATRIAL TACHYCARDIA CANNOT RULE OUT SEPTAL INFARCT, AGE INDETERMINATE BASELINE ARTIFACT- I, II, III, AVR, AVL, AVF, V1-V6 ABNORMAL ECG Electronically Signed On 09-13-2020 13:37:42 CDT by Maximo Lyles D.O.
--- NOTE | 2020-09-13 11:27 | PM.IMPN ---
Progress Note: A&P Assessment and Plan (1) Acute alteration in mental status: Code(s): R41.82 - Altered mental status, unspecified Status: Acute Assessment and Plan: 09/13/20 11:27 09/09 Patient is a 45-year-old female with history of end-stage renal disease on peritoneal dialysis patient is quite somnolent unable to provide any review of symptoms or history, her mother is present in the room providing history and some of the history is recorded from electronic chart, apparently patient was brought emergency department her yesterday after see a taken several tablets of Xanax to get high, patient was evaluated in emergency depart however patient's left AMA, this hospital staff pharmacist patient was found somnolent on the floor EMS was called and patient was brought to the emergency department there are no more details available what exactly transpired, my suspicion patient has not received peritoneal dialysis and this may cause her to be somnolent as patient had taken benzodiazepine as well as opiates, will contact patient nephrology and resume peritoneal dialysis as soon as possible this may help patient mentation once clinically stable will have a PT OT evaluate the patient and further recommendation to follow. 09/10 patient had a peritoneal dialysis last night this morning patient is little more awake and able to communicate and was able to swallow without difficulty, however patient does not recollect exactly happened by she was brought to the emergency, see denies taking any medication more than necessary, however her current mentation has improved, DW Dr. Gaytan patient will have return dialysis again today, patient is hypokalemic and hypomagnesemia will replace and monitor, clinically stable will have a PT OT evaluate the patient and further recommendation to follow. 09/11 today patient slightly better however still confused still does not know exactly what happened and by sees in hospital, later nursing staff spoke with the patient's sister and this is not her baseline, patient was seen by Nephrology who has seen her before and agrees the patient is still quite confused, patient will receive her peritoneal daily dialysis, so far there is no growth in urine and blood culture, will stop antibiotic, peritoneal fluid results are pending, will continue PT OT. Will discuss with the patient's family for the discharge planning. 09/12 today patient is more agitated and hallucinating not very cooperative, patient was given Zyprexa 5 mg IM which did improve and calm her down, her sister is present in the room, patient unable to provide any review of symptom. 09/13, on 06 throughout the day patient was quite agitated and combative patient was Zyprexa 10 mg and 2 mg of Ativan IM however there was no improvement on the night and this morning patient is quite hallucinating, is stable their dogs and snakes in the room and under the bed, after discussing with nursing staff, I spoke with clerk will transfer the patient to ICU to start on Precedex, patient will continue to have peritoneal dialysis, patient seen by Nephrology, will continue to monitor, (2) UTI (urinary tract infection): Code(s): N39.0 - Urinary tract infection, site not specified Status: Acute Assessment and Plan: Patient unable to provide review of symptom however urine is suspicious for UTI being treated with Rocephin will follow urine culture and blood culture (3) End-stage renal disease on peritoneal dialysis: Code(s): N18.6 - End stage renal disease; Z99.2 - Dependence on renal dialysis Status: Acute Assessment and Plan: Patient on peritoneal dialysis patient missed her dialysis yesterday we have contacted Nephrology to resume patient dialysis further recommendation to follow (4) Hypokalemia: Code(s): E87.6 - Hypokalemia Status: Acute Assessment and Plan: Will supplement and monitor (5) Acute hyponatremia: Code(s): E87
--- NOTE | 2020-09-13 11:37 | PC.NURSE ---
This patient, Bryant Flores, was received from [[id number] ] on 09/13/20 at 1130. Patient/family oriented to unit policies and routines
[2020-09-13 12:52] LABS: Glucose Point of Care 182 mg/dl (65-105)
[2020-09-13] MEDS: LIDOCAINE HCL 1% PF INJ 5 ML VIAL INFILTRATE (14:40)
[2020-09-13] MEDS: ONDANSETRON INJ 4 MG/2 ML VIAL IV PUSH (14:48)
[2020-09-13 17:00] LABS: Glucose Point of Care 205 mg/dl (65-105)
[2020-09-13] MEDS: MEGESTROL ACETATE (*CHEMO) 40 MG TABLET 120 MG PO (17:01)
[2020-09-13 20:38] LABS: Glucose Point of Care 196 mg/dl (65-105)
[2020-09-13] MEDS: CENTRAL LINE FLUSH 10 ML IV PUSH (20:47)
[2020-09-13] MEDS: INSULIN GLARGINE (*BKC) 100 UNITS/ML 30 UNITS SUB-Q (20:47)
[2020-09-14] VITALS (19 sets, daily range): BP systolic 100–163; BP diastolic 47–117; PULSE 99–127; RESP 18–32; TEMP 36.3–37; O2SAT 93–100
[2020-09-14 05:27] LABS: Albumin Level 2.5 g/dL (3.5-5.1); Anion Gap 8 mmol/L (8-16); Blood Urea Nitrogen 26 mg/dL (7-17); Calcium 9.4 mg/dL (8.4-10.2); Carbon Dioxide 27 mmol/L (22-30); Chloride 100 mmol/L (98-107); Estimated CRCL calculation 12 ml/min; Estimated Glomerular Filt Rate 7; Glucose 152 mg/dL (65-105); Magnesium 1.5 mg/dL (1.6-2.3); Phosphorus 3.7 mg/dL (2.5-4.5); Potassium 3.6 mmol/L (3.4-5.0); Sodium 135 mmol/L (137-145)
[2020-09-14] MEDS: CENTRAL LINE FLUSH 10 ML IV PUSH ×3 (06:12→20:51)
--- NOTE | 2020-09-14 08:14 | P.PNNP_ITS ---
Progress Note: A&P Assessment and Plan (1) End stage renal disease: Code(s): N18.6 - End stage renal disease Status: Chronic Assessment and Plan: * On peritoneal dialysis * BUN and creatinine are under good control. * Flows good and fluid is clear. * seen at 7:30 a.m. * volume status looks okay. (2) Hypokalemia: Code(s): E87.6 - Hypokalemia Status: Acute Assessment and Plan: * low again today. * Supplement potassium. (3) Altered mental status: Code(s): R41.82 - Altered mental status, unspecified Status: Acute Assessment and Plan: * This had improved but is now worse again. * Getting good dialysis I do not think this is uremia. * Sodium level is stable. * Ammonia level is okay * Calcium is high. She is received Calcitonin. Calcium Level is better down to 9.4. Will repeat the ionized calcium. If this is still high will readdress pamidronate. * She is not on any mind altering medications. * CT of the head was negative on 09/09. * Do we need Neurology input? (4) Hyponatremia: Code(s): E87.1 - Hypo-osmolality and hyponatremia Status: Acute Assessment and Plan: * chronic issues at baseline * on salt tabs * Sodium level is up to 135. This is better because she is not drinking as much water. I think we can stop the salt tablets for now. (5) UTI (urinary tract infection): Code(s): N39.0 - Urinary tract infection, site not specified Status: Acute Assessment and Plan: * UA somewhat suggestive * Blood cultures are pending. And urine cultures are negative.. * Off ceftriaxone, on Levaquin. Subjective Date/time seen: 09/14/20 08:14 Interval history: Some in a lit, confused, hallucinating. She was climbing out of the bed last evening but has been better this morning. There is a sitter in the room. Exam Narrative: Exam Narrative: GENERAL APPEARANCE: WD/EN female in no acute distress but confused CARDIOVASCULAR: RRR, normal S1 and S2, no rub or gallop RESPIRATORY: clear Bilaterally ABDOMEN: soft, nontender, nondistended, positive bowel sounds present EXTREMITIES: no edema Skin no rash Or subcu nodules NEURO: Alert but disoriented and agitated. No focal sign Objective Data Vital Signs Vital Signs: Vital Signs - 24 hr 09/13/20 08:15 09/13/20 11:55 09/13/20 12:00 Temperature Pulse Rate 71 113 H 112 H Respiratory Rate 20 32 H Blood Pressure 167/96 H Pulse Oximetry 97 98 98 09/13/20 14:00 09/13/20 16:00 09/13/20 18:00 Temperature 37.9 C H Pulse Rate 115 H 112 H 106 H Respiratory Rate 24 H 24 H Blood Pressure 122/89 137/80 Pulse Oximetry 98 98 09/13/20 18:17 09/13/20 20:00 09/13/20 20:42 Temperature 36.1 C L Pulse Rate 113 H 118 H 110 H Respiratory Rate 22 H 26 H 17 Blood Pressure 117/79 139/68 Pulse Oximetry 98 97 09/13/20 20:50 09/14/20 00:00 09/14/20 02:00 Temperature 36.9 C Pulse Rate 98 110 H 112 H Respiratory Rate 19 20 20 Blood Pressure 147/79 H 152/74 H Pulse Oximetry 96 09/14/20 04:00 09/14/20 06:00 Temperature 36.9 C Pulse Rate 121 H 118 H
--- NOTE | 2020-09-14 08:14 | PM.PNNEP ---
Progress Note: A&P Assessment and Plan (1) End stage renal disease: Code(s): N18.6 - End stage renal disease Status: Chronic Assessment and Plan: On peritoneal dialysis BUN and creatinine are under good control. Flows good and fluid is clear. seen at 7:30 a.m. volume status looks okay. (2) Hypokalemia: Code(s): E87.6 - Hypokalemia Status: Acute Assessment and Plan: low again today. Supplement potassium. (3) Altered mental status: Code(s): R41.82 - Altered mental status, unspecified Status: Acute Assessment and Plan: This had improved but is now worse again. Getting good dialysis I do not think this is uremia. Sodium level is stable. Ammonia level is okay Calcium is high. She is received Calcitonin. Calcium Level is better down to 9.4. Will repeat the ionized calcium. If this is still high will readdress pamidronate. She is not on any mind altering medications. CT of the head was negative on 09/09. Do we need Neurology input? (4) Hyponatremia: Code(s): E87.1 - Hypo-osmolality and hyponatremia Status: Acute Assessment and Plan: chronic issues at baseline on salt tabs Sodium level is up to 135. This is better because she is not drinking as much water. I think we can stop the salt tablets for now. (5) UTI (urinary tract infection): Code(s): N39.0 - Urinary tract infection, site not specified Status: Acute Assessment and Plan: UA somewhat suggestive Blood cultures are pending. And urine cultures are negative.. Off ceftriaxone, on Levaquin. Subjective Date/time seen: 09/14/20 08:14 Interval history: Some in a lit, confused, hallucinating. She was climbing out of the bed last evening but has been better this morning. There is a sitter in the room. Exam Narrative: Exam Narrative: GENERAL APPEARANCE: WD/EN female in no acute distress but confused CARDIOVASCULAR: RRR, normal S1 and S2, no rub or gallop RESPIRATORY: clear Bilaterally ABDOMEN: soft, nontender, nondistended, positive bowel sounds present EXTREMITIES: no edema Skin no rash Or subcu nodules NEURO: Alert but disoriented and agitated. No focal sign Objective Data Vital Signs Vital Signs: Vital Signs - 24 hr 09/13/20 08:15 09/13/20 11:55 09/13/20 12:00 Temperature Pulse Rate 71 113 H 112 H Respiratory Rate 20 32 H Blood Pressure 167/96 H Pulse Oximetry 97 98 98 09/13/20 14:00 09/13/20 16:00 09/13/20 18:00 Temperature 37.9 C H Pulse Rate 115 H 112 H 106 H Respiratory Rate 24 H 24 H Blood Pressure 122/89 137/80 Pulse Oximetry 98 98 09/13/20 18:17 09/13/20 20:00 09/13/20 20:42 Temperature 36.1 C L Pulse Rate 113 H 118 H 110 H Respiratory Rate 22 H 26 H 17 Blood Pressure 117/79 139/68 Pulse Oximetry 98 97 09/13/20 20:50 09/14/20 00:00 09/14/20 02:00 Temperature 36.9 C Pulse Rate 98 110 H 112 H Respiratory Rate 19 20 20 Blood Pressure 147/79 H 152/74 H Pulse Oximetry 96 09/14/20 04:00 09/14/20 06:00 Temperature 36.9 C Pulse Rate 121 H 118 H Respiratory Rate 24 H 28 H Blood Pressure 163/47 H 125/80 Pulse Oximetry 97 97 Intake/Output Intake/Output: Intake & Output 09/11/20 09/12/20 09/13/20 09/14/20 23:59 23:59 23:59 23:59 Intake Total 1780 1050 580 60 Output Total 800 0 900 1250 Balance 980 1050 320 1190 Meds/Results Medications: Active Medications Generic Name Dose Route Start Last Admin Trade Name Chandlerq PRN Reason Stop Dose Admin Albuterol 2.5 mg 09/13/20 08:28 Albuterol Sulfate Neb 2.5 Mg/0.5 Ml Inh INHALATION Q4HRT PRN Shortness Of Breath Lipase/Protease/Amylase 1 cap 09/09/20 17:00 09/13/20 17:00 Lipase/Amylase/Protease 12,000 Units Cap PO 1 cap TIDWM FLIP Administration Budesonide 0.5 mg 09/12/20 08:00 09/13/20 20:42 Budesonide Respule Neb 0.5 Mg/2 Ml Amp INHALAT
--- NOTE | 2020-09-14 08:24 | WPDINTPN ---
Progress Note: A&P Assessment and Plan (1) Encephalopathy acute: Code(s): G93.40 - Encephalopathy, unspecified Status: Acute Assessment and Plan: Likely toxic metabolic encephalopathy and delirium as evidence from waxing and waning status, hallucination and delusion. Patient has history of depression but I do not see her on any antidepressants as an outpatient. She does take Xanax p.r.n. which was confirmed as per her sister. I do not know of any other psychiatric problems at baseline. Her Head -CT was negative. Ammonia was normal. ABG did show hypercarbia and patient is not that severely uremic. Patient is awake, alert, writhing movements -Patient with possible UTI on UA but urine cultures are negative, - has received several drugs including Zyprexa Ativan and Librium which could be contributing -has not required Precedex infusion - Sitter at bedside - Hold all scheduled sedatives and use p.r.n. Ativan only for agitation - Patient does not appear to have a heavy alcohol use history -will consult Neurology - Neurochecks Will consider MRI if does not improve Psychiatric evaluation once medically stable (2) Delirium: Code(s): R41.0 - Disorientation, unspecified Status: Acute Assessment and Plan: See above (3) Benzodiazepine abuse: Code(s): F13.10 - Sedative, hypnotic or anxiolytic abuse, uncomplicated Status: Acute Assessment and Plan: See above (4) End-stage renal disease on peritoneal dialysis: Code(s): N18.6 - End stage renal disease; Z99.2 - Dependence on renal dialysis Status: Acute Assessment and Plan: Continue peritoneal dialysis as per nephrology Patient was on dialysis and was disconnected prior to transfer to ICU. -peritoneal dialysis per Nephrology (5) UTI (urinary tract infection): Code(s): N39.0 - Urinary tract infection, site not specified Status: Acute Assessment and Plan: Cultures negative although UA suggested UTI She is on antibiotics due to lack of good history Currently on Levaquin (6) Hypertension: Code(s): I10 - Essential (primary) hypertension Status: Acute Assessment and Plan: Patient is on clonidine Coreg Procardia and Lasix (7) Diabetes: Code(s): E11.9 - Type 2 diabetes mellitus without complications Status: Acute Assessment and Plan: Sliding scale insulin Additional Plan DVT prophylaxis -subcu heparin Stress ulcer prophylaxis -patient is on Protonix Nutrition -diabetic diet Code Status - Full Code Will update sister Subjective Date/time seen: 09/14/20 08:24 Interval history: 09/14/2020: Patient seen and examined the ICU, patient opens her eyes to name, tracks, trying to answer few questions but unable. Nods to questions appropriately, remains confused, hallucinating per sitter. Tremors noted. Patient is tachycardic, afebrile, adequate urine output. Review of Systems Review of Systems: ROS unobtainable: Yes unobtainable due to medical condition and unobtainable due to mental status Exam Narrative: Exam Narrative: General: Pt is awake, tracks, unable to answer questions but nods to questions. Patient is confused, having hallucinations as per the sitter, tremors noted Lungs/Chest: Trachea central Clear BS B/L, No crackles or wheezing. Cardiac: RRR. Normal S1 S2. No murmurs Circulation: Pedal pulses are intact and symmetrical. Abdomen: Normal bowel sounds.. Soft. NT. ND. PD catheter in place Extremities: No clubbing, cyanosis or edema. Warm : Guillen in place Neurologic: Follows commands. Moves all 4 extremities PERRL cataract in right eye. Hallucinating Skin: Many tattoos all over her body Objective Data Vital Signs Vital Signs: Vital Signs - 24 hr 09/13/20 11:55 09/13/20 12:00 09/13/20 14:00 Temperature Pulse Rate 113 H 112 H 115 H Respiratory Rate 32 H 24 H Blood Pressure 167/96 H 122/89 Pulse Oximetry 98 98 98
[2020-09-14] MEDS: BUDESONIDE RESPULE NEB 0.5 MG/2 ML AMP INHALATION ×2 (08:26→19:57)
[2020-09-14 08:34] LABS: Glucose Point of Care 141 mg/dl (65-105)
[2020-09-14] MEDS: LIPASE/AMYLASE/PROTEASE 12,000 UNITS CAP 1 CAP PO ×3 (08:42→16:53)
[2020-09-14] MEDS: HEPARIN SODIUM 5,000 UNITS/ML VIAL 5000 UNITS SUB-Q ×2 (08:42→20:50)
[2020-09-14] MEDS: VITAMIN B CMPLX/VIT C/FOLIC AC 1 CAPSULE 1 CAP PO (08:42)
[2020-09-14] MEDS: POTASSIUM CHLORIDE 20 MEQ TABLET.ER PO ×2 (08:42→16:55)
[2020-09-14] MEDS: NIFEdipine 30 MG TAB.ER.24 PO (08:42)
[2020-09-14] MEDS: ROSUVASTATIN 10 MG TABLET PO (08:42)
[2020-09-14] MEDS: FAMOTIDINE 20 MG TABLET PO ×2 (08:42→20:50)
[2020-09-14] MEDS: cloNIDine HCL 0.1 MG TABLET PO (08:42)
[2020-09-14] MEDS: LACTULOSE 20 GM/30 ML UDC PO ×2 (08:42→16:54)
[2020-09-14] MEDS: PANTOPRAZOLE 40 MG TABLET PO (08:42)
[2020-09-14] MEDS: FUROSEMIDE 80 MG TABLET PO ×2 (08:42→16:53)
[2020-09-14] MEDS: NICOTINE (*PBKC) 21 MG PATCH 1 PATCH TRANSDERM (08:43)
[2020-09-14] MEDS: CALCITONIN SALMON INJ 400 UNITS/2 ML VIAL 230 UNITS SUB-Q ×4 (08:47→21:35)
[2020-09-14] MEDS: LORazepam INJ (*CRX) 2 MG/ML VIAL IV PUSH (09:57)
[2020-09-14] MEDS: dexmedeTOMIDine 400 MCG/100 ML 400 MCG/100 ML BAG 5.7 MCG IV CONT (10:13)
--- NOTE | 2020-09-14 11:11 | PCPTNOTE ---
PT on hold today per RN due to agitation and Precedex drip. Will follow.
--- NOTE | 2020-09-14 12:16 | WPDNEURCNPN ---
Assessment and Plan Additional Plan as per the history gross neuro examination is nonfocal while in the room she was noted to have uncontrollable movement turning to the right side and also babbling with is no cardiac abnormalities I will start on Seroquel and try to minimize the different medication were she is taking Consult date: 09/14/20 Time Seen: 12:30 HPI: Bryant Flores is a 45 year old female admitted to the hospital with ongoing history of end-stage renal disease for which she was on peritoneal dialysis and complains of generalized weakness, patient is already seen by the director non profit for end-stage renal disease chronic in nature for which nightly cc PD was started though she was documented to have abnormal electrolytes at present she is in ICU for encephalopathy with clinical waxing and waning hallucinations and at this stage the CT scan of the head is normal ammonia level is normal, she is awake alert as raising movement has received Zyprexa Ativan and Librium and now Precedex infusion MRI is being considered and psoas the psych evaluation while she gets somewhat more controlled. She does have a history of benzodiazepine abuse all the cultures are negative Review of Systems Review of Systems: All systems reviewed & are unremarkable except as noted in HPI and below PMFSH Past Medical History Medical History Anxiety COPD (chronic obstructive pulmonary disease) Depression Diabetes End stage renal disease GERD (gastroesophageal reflux disease) Hypercholesterolemia Hypertension Pancreatitis Peritoneal dialysis catheter in place Surgical History Surgical History History of tonsillectomy Social History Social History Smoking packs per day: 1 Smoking cigarettes per day: 20.0 Smoking status: Current every day smoker Tobacco type: cigarettes Alcohol intake: never Substance use: never Substance use type: prescription drug Gender identity (if verbalized by the patient): Female Spiritual care concerns: No Meds Home Medications and Allergies Home Medications Medication Instructions Recorded Confirmed Type B complex with C 20-folic acid 1 cap PO DAILY 09/09/20 09/09/20 History [Mandeep Caps] alprazolam 2 mg PO TID PRN 09/09/20 09/09/20 History baclofen 10 mg PO TID 09/09/20 09/09/20 History carvedilol 25 mg PO BID 09/09/20 09/09/20 History cimetidine 300 mg PO TID 09/09/20 09/09/20 History clonidine HCl 0.1 mg PO DAILY 09/09/20 09/09/20 History ergocalciferol (vitamin D2) 50,000 unit PO WEEKLY 09/09/20 09/09/20 History furosemide 80 mg PO BID 09/09/20 09/09/20 History insulin aspart U-100 [Novolog See Rx Instructions .ROUTE .COMPLEX 09/09/20 09/09/20 History Flexpen U-100 Insulin] insulin degludec [Tresiba 60 unit SUBCUT DAILY 09/09/20 09/09/20 History FlexTouch U-100] lactulose 20 g PO BID 09/09/20 09/09/20 History [id number]-[id number] [Creon] 2 cap PO TIDWMEAL 09/09/20 09/09/20 History megestrol 120 mg PO DAILY 09/09/20 09/09/20 History nifedipine 30 mg PO DAILY 09/09/20 09/09/20 History ondansetron HCl [Zofran] 4 mg PO Q6H PRN 09/09/20 09/09/20 History oxycodone 10 mg PO Q4-6H PRN 09/09/20 09/09/20 History pantoprazole 40 mg PO DAILY 09/09/20 09/09/20 History potassium chloride [Klor-Con M20] 20 meq PO BID 09/09/20 09/09/20 History rosuvastatin 10 mg PO DAILY 09/09/20 09/09/20 History scopolamine base 1 patch TOPICAL Q72H 09/09/20 09/09/20 History sevelamer carbonate [Renvela] 800 mg PO TIDWMEAL 09/09/20 09/09/20 History sodium chloride 1 g PO BID 09/09/20 09/09/20 History sodium chloride 1 g PO BID 09/09/20 09/09/20 History Allergies Allergy/AdvReac Type Severity Reaction Status Date / Time naproxen Allergy Mild HIVES Verified 04/28/18 21:21 haloperidol Allergy Unknown HALLUCINATION Verified 04/28/18 21:21 AND ITCHINESS metocl
--- NOTE | 2020-09-14 12:16 | PCOTNOTE ---
Hold Occupational Therapy today per RN due to agitation and Precedex drip. Will follow and attempt OT treatment tomorrow.
[2020-09-14] MEDS: QUEtiapine FUMARATE 25 MG TABLET 50 MG PO (13:02)
[2020-09-14] MEDS: QUEtiapine FUMARATE 25 MG TABLET PO (13:03)
[2020-09-14 13:11] LABS: Glucose Point of Care 131 mg/dl (65-105)
--- NOTE | 2020-09-14 13:50 | PM.IMPN ---
Progress Note: A&P Assessment and Plan (1) Acute alteration in mental status: Code(s): R41.82 - Altered mental status, unspecified Status: Acute Assessment and Plan: 09/09 Patient is a 45-year-old female with history of end-stage renal disease on peritoneal dialysis patient is quite somnolent unable to provide any review of symptoms or history, her mother is present in the room providing history and some of the history is recorded from electronic chart, apparently patient was brought emergency department her yesterday after see a taken several tablets of Xanax to get high, patient was evaluated in emergency depart however patient's left AMA, this talend etl developer patient was found somnolent on the floor EMS was called and patient was brought to the emergency department there are no more details available what exactly transpired, my suspicion patient has not received peritoneal dialysis and this may cause her to be somnolent as patient had taken benzodiazepine as well as opiates, will contact patient nephrology and resume peritoneal dialysis as soon as possible this may help patient mentation once clinically stable will have a PT OT evaluate the patient and further recommendation to follow. 09/10 patient had a peritoneal dialysis last night this morning patient is little more awake and able to communicate and was able to swallow without difficulty, however patient does not recollect exactly happened by she was brought to the emergency, see denies taking any medication more than necessary, however her current mentation has improved, VAUGHN Gaytan patient will have return dialysis again today, patient is hypokalemic and hypomagnesemia will replace and monitor, clinically stable will have a PT OT evaluate the patient and further recommendation to follow. 09/11 today patient slightly better however still confused still does not know exactly what happened and by sees in hospital, later nursing staff spoke with the patient's sister and this is not her baseline, patient was seen by Nephrology who has seen her before and agrees the patient is still quite confused, patient will receive her peritoneal daily dialysis, so far there is no growth in urine and blood culture, will stop antibiotic, peritoneal fluid results are pending, will continue PT OT. Will discuss with the patient's family for the discharge planning. 09/12 today patient is more agitated and hallucinating not very cooperative, patient was given Zyprexa 5 mg IM which did improve and calm her down, her sister is present in the room, patient unable to provide any review of symptom. 09/13, on 06 throughout the day patient was quite agitated and combative patient was Zyprexa 10 mg and 2 mg of Ativan IM however there was no improvement on the night and this morning patient is quite hallucinating, is stable their dogs and snakes in the room and under the bed, after discussing with nursing staff, I spoke with corporate travel coordinator will transfer the patient to ICU to start on Precedex, patient will continue to have peritoneal dialysis, patient seen by Nephrology, will continue to monitor 09/14 pt is hallucinating in the bed history of benzodiazepine as well as opiates abuse, continue to monitor in icu (2) UTI (urinary tract infection): Code(s): N39.0 - Urinary tract infection, site not specified Status: Acute Assessment and Plan: Patient unable to provide review of symptom however urine is suspicious for UTI being treated with Rocephin await cultures (3) End-stage renal disease on peritoneal dialysis: Code(s): N18.6 - End stage renal disease; Z99.2 - Dependence on renal dialysis Status: Acute Assessment and Plan: Nephrology to resume patient dialysis further recommendation to follow (4) Hypokalemia: Code(s): E87.6 - Hypokalemia Status: Resolved (5) Acute hyponatremia: Code(s): E87.1 - Hypo-osmolality and hyponatremia Status: Resolved (6)
[2020-09-14 16:53] LABS: Glucose Point of Care 136 mg/dl (65-105)
[2020-09-14] MEDS: MEGESTROL ACETATE (*CHEMO) 40 MG TABLET 120 MG PO (16:55)
[2020-09-14] MEDS: dexmedeTOMIDine 400 MCG/100 ML 400 MCG/100 ML BAG 8.55 MCG IV CONT (20:34)
[2020-09-14] MEDS: levoFLOXacin 500 MG TABLET PO (20:50)
[2020-09-14] MEDS: QUEtiapine FUMARATE 25 MG TABLET 75 MG PO (20:50)
[2020-09-14] MEDS: INSULIN GLARGINE (*BKC) 100 UNITS/ML 30 UNITS SUB-Q (20:51)
[2020-09-14 21:10] LABS: Glucose Point of Care 206 mg/dl (65-105)
[2020-09-15] VITALS (21 sets, daily range): BP systolic 77–138; BP diastolic 46–89; PULSE 60–120; RESP 18–92; TEMP 36.1–36.9; O2SAT 91–100; BMI 38.5
[2020-09-15 04:51] LABS: Hematocrit 30.5 % (37.0-47.0); Hemoglobin 10.1 g/dL (12.0-15.0); Mean Corpuscular HGB Conc 33.1 g/dl (32-36); Mean Corpuscular Hemoglobin 29.7 pg (26-34); Mean Corpuscular Volume 89.7 fl (80-100); Mean Platelet Volume 9.7 fl (7.4-10.4); Platelet Count Result 219 k/mm3 (150-375); Red Cell Distribution Width 14.3 % (11.5-14.5)
[2020-09-15 05:02] LABS: Albumin Level 2.5 g/dL (3.5-5.1); Anion Gap 3 mmol/L (8-16); Blood Urea Nitrogen 23 mg/dL (7-17); Calcium 9.7 mg/dL (8.4-10.2); Carbon Dioxide 31 mmol/L (22-30); Chloride 102 mmol/L (98-107); Estimated CRCL calculation 14 ml/min; Estimated Glomerular Filt Rate 8; Glucose 170 mg/dL (65-105); Magnesium 1.5 mg/dL (1.6-2.3); Phosphorus 3.6 mg/dL (2.5-4.5); Potassium 3.3 mmol/L (3.4-5.0); Sodium 136 mmol/L (137-145)
[2020-09-15 05:35] LABS: Ionized Calcium 5.7 mg/dL (4.8-5.6)
[2020-09-15] MEDS: CENTRAL LINE FLUSH 10 ML IV PUSH ×3 (06:34→20:35)
--- NOTE | 2020-09-15 07:53 | WPDINTPN ---
Progress Note: A&P Assessment and Plan (1) Encephalopathy acute: Code(s): G93.40 - Encephalopathy, unspecified Status: Acute Assessment and Plan: Likely toxic metabolic encephalopathy and delirium as evidence from waxing and waning status, hallucination and delusion. Patient has history of depression but I do not see her on any antidepressants as an outpatient. She does take Xanax p.r.n. which was confirmed as per her sister. I do not know of any other psychiatric problems at baseline. Her Head -CT was negative. Ammonia was normal. ABG did show hypercarbia and patient is not that severely uremic. Patient is awake, alert, writhing movements -Patient with possible UTI on UA but urine cultures are negative, - has received several drugs including Zyprexa Ativan and Librium which could be contributing. All of these medications have been stopped -currently on Precedex infusion and Seroquel - Sitter at bedside - Hold all scheduled sedatives and use p.r.n. Ativan only for agitation - Patient does not appear to have a heavy alcohol use history -appreciate Neurology evaluation and recommendation -continue Neurochecks -Will consider MRI if does not improve -Psychiatric evaluation once medically stable (2) Delirium: Code(s): R41.0 - Disorientation, unspecified Status: Acute Assessment and Plan: See above (3) Benzodiazepine abuse: Code(s): F13.10 - Sedative, hypnotic or anxiolytic abuse, uncomplicated Status: Acute Assessment and Plan: See above (4) End-stage renal disease on peritoneal dialysis: Code(s): N18.6 - End stage renal disease; Z99.2 - Dependence on renal dialysis Status: Acute Assessment and Plan: Continue peritoneal dialysis as per nephrology Replace potassium and magnesium (5) UTI (urinary tract infection): Code(s): N39.0 - Urinary tract infection, site not specified Status: Acute Assessment and Plan: Cultures negative although UA suggested UTI She is on antibiotics due to lack of good history Currently on Levaquin (6) Hypertension: Code(s): I10 - Essential (primary) hypertension Status: Acute Assessment and Plan: Patient is on clonidine Coreg Procardia and Lasix (7) Diabetes: Code(s): E11.9 - Type 2 diabetes mellitus without complications Status: Acute Assessment and Plan: Sliding scale insulin Additional Plan DVT prophylaxis -subcu heparin Stress ulcer prophylaxis -patient is on Protonix Nutrition -diabetic diet Will update family Code status: Full code Critical care time spent: 32 minutes Subjective Date/time seen: 09/15/20 07:53 Interval history: 09/15/2020: Patient seen and examined the ICU, patient opens her eyes to name, tracks, follows simple commands. Patient continues to reach out for things in the air. Patient is hemodynamically stable, afebrile, adequate urine output. Decreased p.o. intake. On Precedex infusion Review of Systems Review of Systems: ROS unobtainable: Yes unobtainable due to medical condition and unobtainable due to mental status Exam Narrative: Exam Narrative: General: Pt is awake, tracks, unable to answer questions but follows simple commands in all extremities. Remains confused, reaching out for things in the air Lungs/Chest: Trachea central Clear BS B/L, No crackles or wheezing. Cardiac: RRR. Normal S1 S2. No murmurs Circulation: Pedal pulses are intact and symmetrical. Abdomen: Normal bowel sounds.. Soft. NT. ND. PD catheter in place Extremities: No clubbing, cyanosis or edema. Warm : Guillen in place Neurologic: Follows commands. Moves all 4 extremities PERRL cataract in right eye. Skin: Many tattoos all over her body Objective Data Vital Signs Vital Signs: Vital Signs - 24 hr 09/14/20 08:00 09/14/20 08:26 09/14/20 08:34 Temperature 98.3 F Pulse Rate 110 H 102 H 127 H Respiratory Rate 24 H 22 H 32 H Bloo
--- NOTE | 2020-09-15 08:00 | ECG_ITS ---
Measurements Intervals [place] Rate: 96 P: [place]: 0 QRS: 45 QRSD: 86 T: 73 QT: 356 QTc: 451 Interpretive Statements ATRIAL FLUTTER/TACHYCARDIA BASELINE ARTIFACT- I, II, III, AVR, AVL, AVF, V1-V6 ABNORMAL ECG Electronically Signed On 09-15-2020 10:08:54 CDT by Maximo Lyles D.O.
[2020-09-15] MEDS: dexmedeTOMIDine 400 MCG/100 ML 400 MCG/100 ML BAG 8.55 MCG IV CONT (08:04)
[2020-09-15] MEDS: POTASSIUM CHLORIDE 20 MEQ PACKET (FOR LIQUID) 40 MEQ PO (08:07)
[2020-09-15] MEDS: PANTOPRAZOLE SODIUM IV 40 MG VIAL IV PUSH ×2 (08:07→20:35)
[2020-09-15] MEDS: QUEtiapine FUMARATE 25 MG TABLET 75 MG PO ×2 (08:08→20:35)
[2020-09-15] MEDS: LACTULOSE 20 GM/30 ML UDC PO (08:08)
[2020-09-15] MEDS: NICOTINE (*PBKC) 21 MG PATCH 1 PATCH TRANSDERM (08:08)
[2020-09-15] MEDS: SCOPOLAMINE 1.5 MG PATCH 1 MG TRANSDERM (08:09)
[2020-09-15] MEDS: NIFEdipine 30 MG TAB.ER.24 PO (08:10)
[2020-09-15] MEDS: VITAMIN B CMPLX/VIT C/FOLIC AC 1 CAPSULE 1 CAP PO (08:10)
[2020-09-15] MEDS: FUROSEMIDE 80 MG TABLET PO ×2 (08:10→17:26)
[2020-09-15] MEDS: ROSUVASTATIN 10 MG TABLET PO (08:10)
[2020-09-15] MEDS: cloNIDine HCL 0.1 MG TABLET PO (08:11)
[2020-09-15] MEDS: LIPASE/AMYLASE/PROTEASE 12,000 UNITS CAP 1 CAP PO ×2 (08:11→12:28)
[2020-09-15] MEDS: MAGNESIUM SULF 2 GM/WATER 50ML 2 GM/50 ML BAG IVPB (08:11)
[2020-09-15] MEDS: POTASSIUM CHLORIDE 20 MEQ TABLET.ER PO (08:11)
[2020-09-15 08:28] LABS: Glucose Point of Care 133 mg/dl (65-105)
[2020-09-15] MEDS: BUDESONIDE RESPULE NEB 0.5 MG/2 ML AMP INHALATION ×2 (08:43→20:23)
--- NOTE | 2020-09-15 10:57 | PM.PNNEP ---
Progress Note: A&P Assessment and Plan (1) End stage renal disease: Code(s): N18.6 - End stage renal disease Status: Chronic Assessment and Plan: On peritoneal dialysis BUN and creatinine are under good control. volume status looks okay. (2) Hypokalemia: Code(s): E87.6 - Hypokalemia Status: Resolved Assessment and Plan: low again today. Supplement potassium. (3) Altered mental status: Code(s): R41.82 - Altered mental status, unspecified Status: Acute Assessment and Plan: This had improved but is now worse again. Getting good dialysis I do not think this is uremia. Sodium level is stable. Ammonia level is okay Calcium is high. She is received Calcitonin. Calcium Level is better down to 9.4. Will repeat the ionized calcium. If this is still high will readdress pamidronate. She is not on any mind altering medications. CT of the head was negative on 09/09. (4) Hyponatremia: Code(s): E87.1 - Hypo-osmolality and hyponatremia Status: Acute Assessment and Plan: chronic issues at baseline on salt tabs Sodium level is up to 136. Off salt tablets. (5) UTI (urinary tract infection): Code(s): N39.0 - Urinary tract infection, site not specified Status: Acute Assessment and Plan: UA somewhat suggestive Blood cultures are No growth to date. And urine cultures are negative. on Levaquin. Subjective Date/time seen: 09/15/20 10:57 Interval history: still confused, hallucinating. Not pulling at things. There is a sitter in the room. Exam Narrative: Exam Narrative: GENERAL APPEARANCE: WD/EN female in no acute distress but confused CARDIOVASCULAR: RRR, normal S1 and S2, no rub or gallop RESPIRATORY: clear Bilaterally ABDOMEN: soft, nontender, nondistended, positive bowel sounds present EXTREMITIES: no edema Skin no rash Or subcu nodules NEURO: Awake but disoriented and agitated. No focal signs . Reaching out for things. Objective Data Vital Signs Vital Signs: Vital Signs - 24 hr 09/14/20 11:04 09/14/20 12:00 09/14/20 13:05 Temperature 36.3 C L Pulse Rate 113 H 107 H 107 H Respiratory Rate 22 H 19 Blood Pressure 113/73 Pulse Oximetry 97 09/14/20 14:00 09/14/20 16:00 09/14/20 18:00 Temperature 37.0 C Pulse Rate 103 H 101 H 99 Respiratory Rate 18 18 20 Blood Pressure 100/61 150/71 H 119/53 L Pulse Oximetry 96 100 100 09/14/20 19:57 09/14/20 20:00 09/14/20 20:34 Temperature 36.3 C L Pulse Rate 99 100 102 H Respiratory Rate 22 H 28 H 21 H Blood Pressure 122/87 Pulse Oximetry 93 09/14/20 22:00 09/15/20 00:00 09/15/20 02:00 Temperature 36.1 C L Pulse Rate 108 H 94 104 H Respiratory Rate 27 H 22 H 26 H Blood Pressure 128/79 124/73 Pulse Oximetry 94 95 93 09/15/20 04:00 09/15/20 04:55 09/15/20 06:00 Temperature 36.4 C Pulse Rate 98 94 106 H Respiratory Rate 26 H 92 H 27 H Blood Pressure 136/89 138/50 L Pulse Oximetry 94 91 09/15/20 08:00 09/15/20 08:04 09/15/20 08:44 Temperature 36.1 C L Pulse Rate 99 92 100 Respiratory Rate 25 H 22 H 22 H Blood Pressure 122/59 L Pulse Oximetry 94 92 09/15/20 08:49 09/15/20 10:00 Temperature Pulse Rate 97 99 Respiratory Rate 24 H 25 H Blood Pressure 117/74 Pulse Oximetry 94 Intake/Output Intake/Output: Intake & Output 09/12/20 09/13/20 09/14/20 09/15/20 23:59 23:59 23:59 23:59 Intake Total 1050 580 235 220 Output Total 0 900 2400 1200 Balance 1050 -320 -2165 -980 Meds/Results Medications: Active Medications Generic Name Dose Route Start Last Admin Trade Name Freq PRN Reason Stop Dose Admin Albuterol 2.5 mg 09/13/20 08:28 Albuterol Sulfate Neb 2.5 Mg/0.5 Ml Inh INHALATION Q4HRT PRN Shortness Of Breath Lipase/Protease/Amylase 1 cap 09/09/20 17:00 09/15/20 08:11 Lipase/Amylase/Protease 12,000 Units Cap PO
[2020-09-15] MEDS: HEPARIN SODIUM 5,000 UNITS/ML VIAL 5000 UNITS SUB-Q ×2 (12:27→20:35)
[2020-09-15 12:42] LABS: Glucose Point of Care 160 mg/dl (65-105)
--- NOTE | 2020-09-15 14:17 | PM.IMPN ---
Progress Note: A&P Assessment and Plan (1) Acute alteration in mental status: Code(s): R41.82 - Altered mental status, unspecified Status: Acute Assessment and Plan: 09/09 Patient is a 45-year-old female with history of end-stage renal disease on peritoneal dialysis patient is quite somnolent unable to provide any review of symptoms or history, her mother is present in the room providing history and some of the history is recorded from electronic chart, apparently patient was brought emergency department her yesterday after see a taken several tablets of Xanax to get high, patient was evaluated in emergency depart however patient's left AMA, this food checker patient was found somnolent on the floor EMS was called and patient was brought to the emergency department there are no more details available what exactly transpired, my suspicion patient has not received peritoneal dialysis and this may cause her to be somnolent as patient had taken benzodiazepine as well as opiates, will contact patient nephrology and resume peritoneal dialysis as soon as possible this may help patient mentation once clinically stable will have a PT OT evaluate the patient and further recommendation to follow. 09/10 patient had a peritoneal dialysis last night this morning patient is little more awake and able to communicate and was able to swallow without difficulty, however patient does not recollect exactly happened by she was brought to the emergency, see denies taking any medication more than necessary, however her current mentation has improved, VAUGHN Gaytan patient will have return dialysis again today, patient is hypokalemic and hypomagnesemia will replace and monitor, clinically stable will have a PT OT evaluate the patient and further recommendation to follow. 09/11 today patient slightly better however still confused still does not know exactly what happened and by sees in hospital, later nursing staff spoke with the patient's sister and this is not her baseline, patient was seen by Nephrology who has seen her before and agrees the patient is still quite confused, patient will receive her peritoneal daily dialysis, so far there is no growth in urine and blood culture, will stop antibiotic, peritoneal fluid results are pending, will continue PT OT. Will discuss with the patient's family for the discharge planning. 09/12 today patient is more agitated and hallucinating not very cooperative, patient was given Zyprexa 5 mg IM which did improve and calm her down, her sister is present in the room, patient unable to provide any review of symptom. 09/13, on 06 throughout the day patient was quite agitated and combative patient was Zyprexa 10 mg and 2 mg of Ativan IM however there was no improvement on the night and this morning patient is quite hallucinating, is stable their dogs and snakes in the room and under the bed, after discussing with nursing staff, I spoke with office runner will transfer the patient to ICU to start on Precedex, patient will continue to have peritoneal dialysis, patient seen by Nephrology, will continue to monitor 09/14 pt is hallucinating in the bed history of benzodiazepine as well as opiates abuse, continue to monitor in icu 09/15 much the same not slept for days still hallucinating (2) UTI (urinary tract infection): Code(s): N39.0 - Urinary tract infection, site not specified Status: Acute Assessment and Plan: Patient unable to provide review of symptom however urine is suspicious for UTI being treated with Rocephin await cultures (3) End-stage renal disease on peritoneal dialysis: Code(s): N18.6 - End stage renal disease; Z99.2 - Dependence on renal dialysis Status: Acute Assessment and Plan: Nephrology to resume patient dialysis further recommendation to follow (4) Hypokalemia: Code(s): E87.6 - Hypokalemia Status: Resolved (5) Acute hyponatremia: Code(s): E87.1 - H
--- NOTE | 2020-09-15 14:21 | PCOTNOTE ---
attempted OT treatment, per RN hold therapy today due to agitation and decreased following commands, will follow and attempt tomorrow.
--- NOTE | 2020-09-15 14:32 | PCPTNOTE ---
Attempted PT treatment. RN stated to hold PT treatment due to agitation. Will try again tomorrow.
[2020-09-15 17:32] LABS: Glucose Point of Care 173 mg/dl (65-105)
[2020-09-15] MEDS: dexmedeTOMIDine 400 MCG/100 ML 400 MCG/100 ML BAG 11.4 MCG IV CONT (17:33)
[2020-09-15] MEDS: LORazepam INJ (*CRX) 2 MG/ML VIAL IV PUSH (18:31)
--- NOTE | 2020-09-15 18:41 | PC.NURSE ---
Patient became increasingly agitated. She was reaching for items that are not in the room, and stating that her house is on fire and the baby is going to burn. Attempted to calm patient, and redirect. Patient began pulling at the bed rail, and leaning forward, nearly pulling herself to the side of the bed. Additional medication given at that time Ativan 2 mg IVPush. Will continue to monitor closely.
[2020-09-15] MEDS: INSULIN GLARGINE (*BKC) 100 UNITS/ML 30 UNITS SUB-Q (20:35)
[2020-09-15 20:53] LABS: Glucose Point of Care 163 mg/dl (65-105)
[2020-09-16] VITALS (28 sets, daily range): BP systolic 68–133; BP diastolic 32–121; PULSE 90–118; RESP 18–92; TEMP 36.3–37.4; O2SAT 95–100
[2020-09-16] MEDS: CENTRAL LINE FLUSH 10 ML IV PUSH ×3 (05:49→21:30)
[2020-09-16 06:12] LABS: Basophils Absolute Auto 0.1 K/mm3 (0.0-0.1); Basophils Percent Auto 0.5 % (0.2-1.2); Eosinophils Absolute Auto 0.1 K/mm3 (0-0.3); Eosinophils Percent Auto 0.8 % (0-4.4); Hematocrit 28.9 % (37.0-47.0); Hemoglobin 9.5 g/dL (12.0-15.0); Immature Granulocyte Absolute 0.03 K/mm3 (0.00-0.031); Immature Granulocyte Percent A 0.3 % (0-0.5); Lymphocytes Absolute Auto 2.63 K/mm3 (0.9-3.2); Lymphocytes Percent Auto 25.7 % (18.3-44.2); Mean Corpuscular HGB Conc 32.9 g/dl (32-36); Mean Corpuscular Hemoglobin 29.1 pg (26-34); Mean Corpuscular Volume 88.4 fl (80-100); Mean Platelet Volume 9.8 fl (7.4-10.4); Monocytes Absolute Auto 1.1 K/mm3 (0.1-0.6); Monocytes Percent Auto 10.9 % (2.6-8.5); Neutrophils Absolute Auto 6.3 K/mm3 (1.3-6.7); Neutrophils Percent Auto 61.8 % (45.5-73.1); Platelet Count Result 234 k/mm3 (150-375); Red Blood Count 3.27 M/mm3 (4.2-5.4); Red Cell Distribution Width 14.2 % (11.5-14.5); White Blood Count 10.3 K/mm3 (4.5-10.0)
[2020-09-16 06:41] LABS: Alanine Aminotransferase 18 U/L (4-35); Albumin Level 2.3 g/dL (3.5-5.1); Alkaline Phosphatase 70 U/L (38-126); Anion Gap 3 mmol/L (8-16); Aspartate Amino Transferase 20 U/L (14-36); Bilirubin,Total 0.4 mg/dL (0.2-1.3); Blood Urea Nitrogen 21 mg/dL (7-17); CRP 2.6 mg/dL (<1.0); Carbon Dioxide 31 mmol/L (22-30); Chloride 104 mmol/L (98-107); Estimated CRCL calculation 13 ml/min; Estimated Glomerular Filt Rate 8; Glucose 164 mg/dL (65-105); Magnesium 1.8 mg/dL (1.6-2.3); Phosphorus 3.7 mg/dL (2.5-4.5); Potassium 3.6 mmol/L (3.4-5.0); Sodium 138 mmol/L (137-145)
[2020-09-16] MEDS: dexmedeTOMIDine 400 MCG/100 ML 400 MCG/100 ML BAG 13.5 MCG IV CONT (07:21)
[2020-09-16] MEDS: BUDESONIDE RESPULE NEB 0.5 MG/2 ML AMP INHALATION ×2 (07:27→21:03)
[2020-09-16] MEDS: ROSUVASTATIN 10 MG TABLET PO (07:55)
[2020-09-16] MEDS: POTASSIUM CHLORIDE 20 MEQ TABLET.ER PO ×2 (07:55→17:51)
[2020-09-16] MEDS: PANTOPRAZOLE SODIUM IV 40 MG VIAL IV PUSH ×2 (07:55→21:29)
[2020-09-16] MEDS: LIPASE/AMYLASE/PROTEASE 12,000 UNITS CAP 1 CAP PO ×3 (07:55→17:50)
[2020-09-16] MEDS: FUROSEMIDE 80 MG TABLET PO ×2 (07:56→17:52)
[2020-09-16] MEDS: NIFEdipine 30 MG TAB.ER.24 PO (07:56)
[2020-09-16] MEDS: LACTULOSE 20 GM/30 ML UDC PO ×2 (07:56→17:50)
[2020-09-16] MEDS: NICOTINE (*PBKC) 21 MG PATCH 1 PATCH TRANSDERM (07:56)
[2020-09-16] MEDS: VITAMIN B CMPLX/VIT C/FOLIC AC 1 CAPSULE 1 CAP PO (07:57)
[2020-09-16] MEDS: cloNIDine HCL 0.1 MG TABLET PO (07:57)
[2020-09-16] MEDS: HEPARIN SODIUM 5,000 UNITS/ML VIAL 5000 UNITS SUB-Q ×2 (08:20→21:33)
--- NOTE | 2020-09-16 09:22 | WPDINTPN ---
Progress Note: A&P Assessment and Plan (1) Encephalopathy acute: Code(s): G93.40 - Encephalopathy, unspecified Status: Acute Assessment and Plan: Likely toxic metabolic encephalopathy and delirium as evidence from waxing and waning status, hallucination and delusion. Patient has history of depression but I do not see her on any antidepressants as an outpatient. She does take Xanax p.r.n. which was confirmed as per her sister. I do not know of any other psychiatric problems at baseline. Her Head -CT was negative. Ammonia was normal. ABG did show hypercarbia and patient is not that severely uremic. Patient is awake, alert, writhing movements -Patient with possible UTI on UA but urine cultures are negative, - has received several drugs including Zyprexa Ativan and Librium which could be contributing. All of these medications have been stopped -currently on Precedex infusion and increase Seroquel - Sitter at bedside - Hold all scheduled sedatives and use p.r.n. Ativan only for agitation - Patient does not appear to have a heavy alcohol use history -appreciate Neurology evaluation and recommendation -continue Neurochecks -Will consider MRI if does not improve -Psychiatric evaluation once medically stable -patient seems to be doing a little better today, continue to monitor (2) Delirium: Code(s): R41.0 - Disorientation, unspecified Status: Acute Assessment and Plan: See above (3) Benzodiazepine abuse: Code(s): F13.10 - Sedative, hypnotic or anxiolytic abuse, uncomplicated Status: Acute Assessment and Plan: See above (4) End-stage renal disease on peritoneal dialysis: Code(s): N18.6 - End stage renal disease; Z99.2 - Dependence on renal dialysis Status: Acute Assessment and Plan: Continue peritoneal dialysis as per nephrology Replace potassium (5) UTI (urinary tract infection): Code(s): N39.0 - Urinary tract infection, site not specified Status: Acute Assessment and Plan: Cultures negative although UA suggested UTI She is on antibiotics due to lack of good history Currently on Levaquin (6) Hypertension: Code(s): I10 - Essential (primary) hypertension Status: Acute Assessment and Plan: Patient is on clonidine Coreg Procardia and Lasix (7) Diabetes: Code(s): E11.9 - Type 2 diabetes mellitus without complications Status: Acute Assessment and Plan: Sliding scale insulin Additional Plan DVT prophylaxis -subcu heparin Stress ulcer prophylaxis -patient is on Protonix Nutrition -diabetic diet Discussed the patient's sister who is the POA, she was discussing about hospice at this time. I told the sister that we should give her few more days as she may turn around. Code status: Full code Critical care time spent: 32 minutes Subjective Date/time seen: 09/16/20 09:22 Interval history: 09/16/2020: Patient seen and examined the ICU, patient sitting up in bed, eating her breakfast, more responsive this morning follows simple commands in all extremities, tries to answer questions and gives one-word answers. Still remains confused. Patient is hemodynamically stable, afebrile, adequate urine output. On Precedex infusion Review of Systems Review of Systems: ROS unobtainable: Yes unobtainable due to medical condition and unobtainable due to mental status Exam Narrative: Exam Narrative: General: Pt is awake, tracks, gives one-word answers to questions, follows simple commands in all extremities. Remains confused, Lungs/Chest: Trachea central Clear BS B/L, No crackles or wheezing. Cardiac: RRR. Normal S1 S2. No murmurs Circulation: Pedal pulses are intact and symmetrical. Abdomen: Normal bowel sounds.. Soft. NT. ND. PD catheter in place Extremities: No clubbing, cyanosis or edema. Warm : Guillen in place Neurologic: Follows commands. Moves all 4 extremities PERRL cataract in right ey
[2020-09-16] MEDS: QUEtiapine FUMARATE 100 MG TABLET PO ×2 (09:57→21:30)
[2020-09-16] MEDS: levETIRAcetam IV 750 MG in DEXTROSE 5% 100 ML 430 MG IVPB ×2 (10:42→21:28)
--- NOTE | 2020-09-16 10:58 | WPDNEUROPN ---
Progress Note: A&P Additional Plan obtain the EEG Review of Systems Review of Systems: All systems reviewed & are unremarkable except as noted in HPI and below Exam Narrative: Exam Narrative: examination revealed her to be awake alert not able to follow the verbal commands appropriately and also not making any communication afford by talking. Head normocephalic with no cranial bruit. Ear nose throat examination normal. Neck is supple with no meningeal signs. Heart regular. Lungs clear. Abdomen is soft. Neurologically she is awake alert disoriented in time and place continuously moving upper and lower extremities and times attempting to approach something pupils round regular feels the vision unreliable extraocular movements are spontaneously full facial grimaces spontaneously symmetrical motor examination revealed her to have ability to move both upper and lower extremities reflexes down plantars are questionable Objective Data Vital Signs Vital Signs: Vital Signs - 24 hr 09/15/20 12:00 09/15/20 12:26 09/15/20 14:00 Temperature Pulse Rate 110 H 108 H 99 Respiratory Rate 22 H 18 23 H Blood Pressure 113/69 106/48 L Pulse Oximetry 96 96 09/15/20 16:00 09/15/20 17:33 09/15/20 18:00 Temperature Pulse Rate 101 H 107 H 108 H Respiratory Rate 22 H 23 H 26 H Blood Pressure 113/53 L 106/46 L Pulse Oximetry 100 09/15/20 18:20 09/15/20 20:00 09/15/20 20:24 Temperature 36.9 C Pulse Rate 108 H 113 H 120 H Respiratory Rate 22 H 34 H 28 H Blood Pressure 84/65 L Pulse Oximetry 94 09/15/20 20:32 09/15/20 22:00 09/16/20 00:00 Temperature 36.7 C Pulse Rate 116 H 119 H 117 H Respiratory Rate 25 H 25 H 22 H Blood Pressure 77/63 L 104/60 Pulse Oximetry 100 95 97 09/16/20 00:27 09/16/20 02:00 09/16/20 04:00 Temperature 36.3 C L Pulse Rate 113 H 106 H 101 H Respiratory Rate 24 H 24 H 20 Blood Pressure 68/32 L 76/53 L Pulse Oximetry 97 96 09/16/20 06:00 09/16/20 06:23 09/16/20 07:08 Temperature Pulse Rate 94 90 91 Respiratory Rate 22 H 25 H 21 H Blood Pressure 94/42 L Pulse Oximetry 96 09/16/20 07:21 09/16/20 07:27 09/16/20 07:32 Temperature Pulse Rate 91 115 H Respiratory Rate 21 H 29 H Blood Pressure Pulse Oximetry 100 09/16/20 07:33 09/16/20 08:00 09/16/20 09:21 Temperature 37.2 C Pulse Rate 98 94 100 Respiratory Rate 25 H 24 H 24 H Blood Pressure 110/59 L Pulse Oximetry 97 09/16/20 10:00 09/16/20 10:17 Temperature Pulse Rate 94 93 Respiratory Rate 18 Blood Pressure Pulse Oximetry Intake/Output Intake/Output: Intake & Output 09/13/20 09/14/20 09/15/20 09/16/20 23:59 23:59 23:59 23:59 Intake Total 580 235 800 280 Output Total 900 2400 1750 550 Balance -320 -2165 -950 -270 Meds/Results Medications: Active Medications Generic Name Dose Route Start Last Admin Trade Name Freq PRN Reason Stop Dose Admin Albuterol 2.5 mg 09/13/20 08:28 Albuterol Sulfate Neb 2.5 Mg/0.5 Ml Inh INHALATION Q4HRT PRN Shortness Of Breath Lipase/Protease/Amylase 1 cap 09/09/20 17:00 09/16/20 07:55 Lipase/Amylase/Protease 12,000 Units Cap PO 1 cap TIDWM FLIP Administration Budesonide 0.5 mg 09/12/20 08:00 09/16/20 07:27 Budesonide Respule Neb 0.5 Mg/2 Ml Amp INHALATION 0.5 mg Q12HRT FLIP Administration Carvedilol 25 mg 09/09/20 21:00 09/13/20 08:01 Carvedilol 25 Mg Tablet PO 25 mg Q12HR FLIP Administration Clonidine HCl 0.1 mg 09/09/20 09:00 09/16/20 07:57 Clonidine Hcl 0.1 Mg Tablet PO 0.1 mg DAILY FLIP Administration Dextrose 12.5 gm 09/09/20 18:58 Dextrose 50% 25 Gm/50 Ml Syringe IV PUSH PRN PRN Hypoglycemia Protocol Ergocalciferol 50,000 unit 09/13/20 09:00 09/13/20 08:03 Ergocalciferol 50,000 Unit Capsule PO 50,000 unit Mo@0900 FLIP Administration Furosemide 80 mg 09/09/20 17:00 09/16/20 07:56 Furosemide 80 Mg Tablet PO 80 mg
--- NOTE | 2020-09-16 11:10 | PCDIET ---
ICU Rounding Note: Patient consumed 0-50% of meals yesterday. Ate biscuit and gravy for breakfast, per RN. Recommend continuing diabetic diet with Nepro TID, though if intakes continue to improve, may need to consider adding renal restrictions. Last recorded weight is 106.3kg which is increased from last review. +I/O. Bowel Motility: No BM documented. Discussed with RN/MD during rounds. +Flatus, per RN. Labs Reviewed: WBC (10.3), Hct (9.5), Hct (28.9), Glu (164), BUN (21), Cr (6.0), Alb (2.3) Meds Noted: Creon, Pulmicort, Coreg, Precedex, Lactulose, Drisdol, Lasix, Levaquin, Procardia, Protonix, KCl, Crestor, Vitamin B Complex Additional Notes: Bruising reported and right cheek scab. No pressure sores. Following daily in ICU rounds. Assessing/reassessing every 3 days.
--- NOTE | 2020-09-16 12:03 | PCPTNOTE ---
PT on hold due to agitation. Continue to follow.
[2020-09-16 12:32] LABS: Glucose Point of Care 232 mg/dl (65-105)
[2020-09-16] MEDS: INSULIN ASPART (*BKC) 100 UNITS/ML SUB-Q (14:11)
--- NOTE | 2020-09-16 14:13 | PCOTNOTE ---
OT on hold due to agitation/confusion. Continue to follow.
--- NOTE | 2020-09-16 15:05 | P.PNNP_ITS ---
Progress Note: A&P Assessment and Plan (1) End stage renal disease: Code(s): N18.6 - End stage renal disease Status: Chronic Assessment and Plan: * On peritoneal dialysis * cathy it well. fluid okay. seen at noon. * BUN and creatinine are under good control. * volume status looks okay. (2) Hypokalemia: Code(s): E87.6 - Hypokalemia Status: Resolved Assessment and Plan: * Potassium okay today. (3) Altered mental status: Code(s): R41.82 - Altered mental status, unspecified Status: Acute Assessment and Plan: * This had improved but is now worse again. * Getting good dialysis I do not think this is uremia. * Sodium level is stable. * Ammonia level is okay * Calcium is Still 10.0 so her ionized calcium is probably still high. Will add pamidronate x1. * Aluminum is always a possibility as well in dialysis patients. This is unlikely in peritoneal dialysis.Will check an aluminum level. * CT of the head was negative on 09/09. * Patient was overdosed on medications before hand. Could drug withdrawal be doing this? She is on p.r.n. Ativan and Precedex. * Neuro consult: Seizures as a possibility. EEG has been ordered. (4) Hyponatremia: Code(s): E87.1 - Hypo-osmolality and hyponatremia Status: Acute Assessment and Plan: * chronic issues at baseline * Sodium level is up to 138. Off salt tablets. (5) UTI (urinary tract infection): Code(s): N39.0 - Urinary tract infection, site not specified Status: Acute Assessment and Plan: * UA somewhat suggestive * Blood cultures are No growth to date. And urine cultures are negative. * on Levaquin. Subjective Date/time seen: 09/16/20 15:05 Interval history: still confused, hallucinating. seems to communicate at times. younger sister in the room. There is a sitter in the room. Exam Narrative: Exam Narrative: GENERAL APPEARANCE: WD/EN female in no acute distress but confused CARDIOVASCULAR: RRR, normal S1 and S2, no rub or gallop RESPIRATORY: clear Bilaterally ABDOMEN: soft, nontender, nondistended, positive bowel sounds present EXTREMITIES: no edema Skin no rash Or subcu nodules NEURO: Awake but disoriented and agitated. No focal signs . Reaching out for things. Objective Data Vital Signs Vital Signs: Vital Signs - 24 hr 09/15/20 16:00 09/15/20 17:33 09/15/20 18:00 Temperature Pulse Rate 101 H 107 H 108 H Respiratory Rate 22 H 23 H 26 H Blood Pressure 113/53 L 106/46 L Pulse Oximetry 100 09/15/20 18:20 09/15/20 20:00 09/15/20 20:24 Temperature 36.9 C Pulse Rate 108 H 113 H 120 H Respiratory Rate 22 H 34 H 28 H Blood Pressure 84/65 L Pulse Oximetry 94 09/15/20 20:32 09/15/20 22:00 09/16/20 00:00 Temperature 36.7 C Pulse Rate 116 H 119 H 117 H Respiratory Rate 25 H 25 H 22 H Blood Pressure 77/63 L 104/60 Pulse Oximetry 100 95 97 09/16/20 00:27 09/16/20 02:00 09/16/20 04:00 Temperature 36.3 C L Pulse Rate 113 H 106 H 101 H Respiratory Rate 24 H 24 H 20 Blood Pressure 68/32 L 76/53 L Pulse Oximetry 97 96 09/16/20 06:00 09/16/20 06:23 09/16
--- NOTE | 2020-09-16 15:05 | PM.PNNEP ---
Progress Note: A&P Assessment and Plan (1) End stage renal disease: Code(s): N18.6 - End stage renal disease Status: Chronic Assessment and Plan: On peritoneal dialysis cathy it well. fluid okay. seen at noon. BUN and creatinine are under good control. volume status looks okay. (2) Hypokalemia: Code(s): E87.6 - Hypokalemia Status: Resolved Assessment and Plan: Potassium okay today. (3) Altered mental status: Code(s): R41.82 - Altered mental status, unspecified Status: Acute Assessment and Plan: This had improved but is now worse again. Getting good dialysis I do not think this is uremia. Sodium level is stable. Ammonia level is okay Calcium is Still 10.0 so her ionized calcium is probably still high. Will add pamidronate x1. Aluminum is always a possibility as well in dialysis patients. This is unlikely in peritoneal dialysis.Will check an aluminum level. CT of the head was negative on 09/09. Patient was overdosed on medications before hand. Could drug withdrawal be doing this? She is on p.r.n. Ativan and Precedex. Neuro consult: Seizures as a possibility. EEG has been ordered. (4) Hyponatremia: Code(s): E87.1 - Hypo-osmolality and hyponatremia Status: Acute Assessment and Plan: chronic issues at baseline Sodium level is up to 138. Off salt tablets. (5) UTI (urinary tract infection): Code(s): N39.0 - Urinary tract infection, site not specified Status: Acute Assessment and Plan: UA somewhat suggestive Blood cultures are No growth to date. And urine cultures are negative. on Levaquin. Subjective Date/time seen: 09/16/20 15:05 Interval history: still confused, hallucinating. seems to communicate at times. younger sister in the room. There is a sitter in the room. Exam Narrative: Exam Narrative: GENERAL APPEARANCE: WD/EN female in no acute distress but confused CARDIOVASCULAR: RRR, normal S1 and S2, no rub or gallop RESPIRATORY: clear Bilaterally ABDOMEN: soft, nontender, nondistended, positive bowel sounds present EXTREMITIES: no edema Skin no rash Or subcu nodules NEURO: Awake but disoriented and agitated. No focal signs . Reaching out for things. Objective Data Vital Signs Vital Signs: Vital Signs - 24 hr 09/15/20 16:00 09/15/20 17:33 09/15/20 18:00 Temperature Pulse Rate 101 H 107 H 108 H Respiratory Rate 22 H 23 H 26 H Blood Pressure 113/53 L 106/46 L Pulse Oximetry 100 09/15/20 18:20 09/15/20 20:00 09/15/20 20:24 Temperature 36.9 C Pulse Rate 108 H 113 H 120 H Respiratory Rate 22 H 34 H 28 H Blood Pressure 84/65 L Pulse Oximetry 94 09/15/20 20:32 09/15/20 22:00 09/16/20 00:00 Temperature 36.7 C Pulse Rate 116 H 119 H 117 H Respiratory Rate 25 H 25 H 22 H Blood Pressure 77/63 L 104/60 Pulse Oximetry 100 95 97 09/16/20 00:27 09/16/20 02:00 09/16/20 04:00 Temperature 36.3 C L Pulse Rate 113 H 106 H 101 H Respiratory Rate 24 H 24 H 20 Blood Pressure 68/32 L 76/53 L Pulse Oximetry 97 96 09/16/20 06:00 09/16/20 06:23 09/16/20 07:08 Temperature Pulse Rate 94 90 91 Respiratory Rate 22 H 25 H 21 H Blood Pressure 94/42 L Pulse Oximetry 96 09/16/20 07:21 09/16/20 07:27 09/16/20 07:32 Temperature Pulse Rate 91 115 H Respiratory Rate 21 H 29 H Blood Pressure Pulse Oximetry 100 09/16/20 07:33 09/16/20 08:00 09/16/20 09:21 Temperature 37.2 C Pulse Rate 98 94 100 Respiratory Rate 25 H 24 H 24 H Blood Pressure 110/59 L Pulse Oximetry 97 09/16/20 10:00 09/16/20 10:17 09/16/20 12:00 Temperature 37.1 C Pulse Rate 92 93 95 Respiratory Rate 92 H 18 25 H Blood Pressure 133/121 H Pulse Oximetry 98 99 09/16/20 12:22 09/16/20 14:00 09/16/20 14:09 Temperature 37.2 C Pulse Rate 97 96 100 Respiratory Rate 25 H 18 24 H Blood Pressure 100/5
[2020-09-16] MEDS: dexmedeTOMIDine 400 MCG/100 ML 400 MCG/100 ML BAG IV CONT (15:49)
[2020-09-16 17:46] LABS: Glucose Point of Care 108 mg/dl (65-105)
[2020-09-16] MEDS: MEGESTROL ACETATE (*CHEMO) 40 MG TABLET 120 MG PO (17:52)
[2020-09-16 21:27] LABS: Glucose Point of Care 206 mg/dl (65-105)
[2020-09-16] MEDS: levoFLOXacin 500 MG TABLET PO (21:29)
[2020-09-16] MEDS: INSULIN GLARGINE (*BKC) 100 UNITS/ML 30 UNITS SUB-Q (21:34)
[2020-09-17] VITALS (19 sets, daily range): BP systolic 95–153; BP diastolic 57–97; PULSE 101–111; RESP 16–26; TEMP 37–37.7; O2SAT 96–100
[2020-09-17] MEDS: CENTRAL LINE FLUSH 10 ML IV PUSH ×3 (05:49→20:19)
[2020-09-17 06:15] LABS: Hematocrit 31.3 % (37.0-47.0); Hemoglobin 10.1 g/dL (12.0-15.0); Mean Corpuscular HGB Conc 32.3 g/dl (32-36); Mean Corpuscular Hemoglobin 29.2 pg (26-34); Mean Corpuscular Volume 90.5 fl (80-100); Mean Platelet Volume 9.9 fl (7.4-10.4); Platelet Count Result 226 k/mm3 (150-375); Red Blood Count 3.46 M/mm3 (4.2-5.4); Red Cell Distribution Width 14.6 % (11.5-14.5); White Blood Count 9.6 K/mm3 (4.5-10.0)
[2020-09-17 06:32] LABS: Ionized Calcium 5.7 mg/dL (4.8-5.6)
[2020-09-17 06:34] LABS: Anion Gap 4 mmol/L (8-16); Blood Urea Nitrogen 21 mg/dL (7-17); Calcium 10.1 mg/dL (8.4-10.2); Carbon Dioxide 29 mmol/L (22-30); Chloride 102 mmol/L (98-107); Estimated CRCL calculation 14 ml/min; Estimated Glomerular Filt Rate 8; Glucose 172 mg/dL (65-105); Magnesium 1.7 mg/dL (1.6-2.3); Phosphorus 3.9 mg/dL (2.5-4.5); Potassium 3.7 mmol/L (3.4-5.0); Sodium 135 mmol/L (137-145)
[2020-09-17] MEDS: BUDESONIDE RESPULE NEB 0.5 MG/2 ML AMP INHALATION ×2 (08:15→20:48)
[2020-09-17 08:41] LABS: Glucose Point of Care 178 mg/dl (65-105)
[2020-09-17] MEDS: LACTULOSE 20 GM/30 ML UDC PO (09:05)
[2020-09-17] MEDS: levETIRAcetam IV 750 MG in DEXTROSE 5% 100 ML 430 MG IVPB ×2 (09:05→20:05)
[2020-09-17] MEDS: HEPARIN SODIUM 5,000 UNITS/ML VIAL 5000 UNITS SUB-Q ×2 (09:06→20:04)
[2020-09-17] MEDS: NICOTINE (*PBKC) 21 MG PATCH 1 PATCH TRANSDERM (09:06)
[2020-09-17] MEDS: LIPASE/AMYLASE/PROTEASE 12,000 UNITS CAP 1 CAP PO (09:06)
[2020-09-17] MEDS: ROSUVASTATIN 10 MG TABLET PO (09:07)
[2020-09-17] MEDS: NIFEdipine 30 MG TAB.ER.24 PO (09:07)
[2020-09-17] MEDS: QUEtiapine FUMARATE 100 MG TABLET PO ×2 (09:07→20:05)
[2020-09-17] MEDS: FUROSEMIDE 80 MG TABLET PO (09:07)
[2020-09-17] MEDS: VITAMIN B CMPLX/VIT C/FOLIC AC 1 CAPSULE 1 CAP PO (09:08)
[2020-09-17] MEDS: POTASSIUM CHLORIDE 20 MEQ TABLET.ER PO (09:08)
[2020-09-17] MEDS: PANTOPRAZOLE SODIUM IV 40 MG VIAL IV PUSH ×2 (09:09→20:05)
[2020-09-17] MEDS: oxyCODONE HCL (*CRX) 5 MG TAB IR 10 MG PO (09:11)
[2020-09-17] MEDS: cloNIDine HCL 0.1 MG TABLET PO (09:12)
--- NOTE | 2020-09-17 09:21 | WPDINTPN ---
Progress Note: A&P Assessment and Plan (1) Encephalopathy acute: Code(s): G93.40 - Encephalopathy, unspecified Status: Acute Assessment and Plan: Likely toxic metabolic encephalopathy and delirium as evidence from waxing and waning status, hallucination and delusion. Patient has history of depression but I do not see her on any antidepressants as an outpatient. She does take Xanax p.r.n. which was confirmed as per her sister. I do not know of any other psychiatric problems at baseline. Her Head -CT was negative. Ammonia was normal. ABG did show hypercarbia and patient is not that severely uremic. Patient is awake, alert, writhing movements -Patient with possible UTI on UA but urine cultures are negative, - has received several drugs including Zyprexa Ativan and Librium which could be contributing. All of these medications have been stopped -on Seroquel and Keppra, Precedex infusion was discontinued on 09/16 - Sitter at bedside - Hold all scheduled sedatives and use p.r.n. Ativan only for agitation - Patient does not appear to have a heavy alcohol use history -appreciate Neurology evaluation and recommendation -continue Neurochecks -Will consider MRI if does not improve -Psychiatric evaluation once medically stable -patient seems to be doing a little better today, continue to monitor (2) Delirium: Code(s): R41.0 - Disorientation, unspecified Status: Acute Assessment and Plan: See above (3) Benzodiazepine abuse: Code(s): F13.10 - Sedative, hypnotic or anxiolytic abuse, uncomplicated Status: Acute Assessment and Plan: See above (4) End-stage renal disease on peritoneal dialysis: Code(s): N18.6 - End stage renal disease; Z99.2 - Dependence on renal dialysis Status: Acute Assessment and Plan: Continue peritoneal dialysis as per nephrology Replace potassium (5) UTI (urinary tract infection): Code(s): N39.0 - Urinary tract infection, site not specified Status: Acute Assessment and Plan: Cultures negative although UA suggested UTI She is on antibiotics due to lack of good history Currently on Levaquin (6) Hypertension: Code(s): I10 - Essential (primary) hypertension Status: Acute Assessment and Plan: Patient is on clonidine Coreg Procardia and Lasix (7) Diabetes: Code(s): E11.9 - Type 2 diabetes mellitus without complications Status: Acute Assessment and Plan: Sliding scale insulin Additional Plan DVT prophylaxis -subcu heparin Stress ulcer prophylaxis -patient is on Protonix Nutrition -diabetic diet Discussed the patient's sister who is the POA, she was discussing about hospice at this time. I told the sister that we should give her few more days as she may turn around. Code status: Full code Critical care time spent: 32 minutes Subjective Date/time seen: 09/17/20 09:21 Interval history: 09/17/2020: Patient seen and examined the ICU, off Precedex infusion since yesterday evening. Patient follows simple commands in all extremities, nods to questions and tries to give one-word answers to questions. Patient is hemodynamically stable, afebrile, with adequate urine output. Still risk confused, tries to pick at things in the air patient sitting up in bed, eating her breakfast, more responsive this morning follows simple commands in all extremities, tries to answer questions and gives one-word answers. Still remains confused. Patient is hemodynamically stable, afebrile, adequate urine output. On Precedex infusion Review of Systems Review of Systems: ROS unobtainable: Yes unobtainable due to medical condition and unobtainable due to mental status Exam Narrative: Exam Narrative: General: Pt is awake, tracks, gives one-word answers to questions, follows simple commands in all extremities. Remains confused, trying to pick at things in the air Lungs/Chest: Trachea central Cl
--- NOTE | 2020-09-17 11:08 | PCNFU ---
Nutrition Follow-Up Complete: Inadequate oral intake related to altered mental status as evidenced by intakes 25% or below at most meals since admission. Goal: Patient to consume 50% of meals/supplements or greater. Progressing towards goal. Pt current nutrition is DBCC with diet supplement of Nepro TID. Last recorded weight is 107.1 kg, up from 104.9 kg. Bowel Motility:No BM reported, discussed with RN during rounds. Labs Reviewed:Na 135,BUN 21,Cr 5.8,Glu 172 Meds Noted:Creon, Megace,Pulmicort, Coreg, Precedex, Lactulose, Drisdol, Lasix, Levaquin, Procardia, Protonix, KCl, Crestor, Seroquel, Vitamin B Complex. Additional Notes: Bruising reported and right cheek scab. No pressure sores. Patient is more responsive today. Peritoneal dialysis last night. Eating cherries with milk for breakfast. Patient refers the kalen Soto, diet office has flavor preference noted. Renal labs improving. Monitoring: Follow up every 3 days.
[2020-09-17 11:36] LABS: Glucose Point of Care 194 mg/dl (65-105)
--- NOTE | 2020-09-17 12:17 | WPDNEUROPN ---
Progress Note: A&P Additional Plan treatment as such Exam Narrative: Exam Narrative: at this stage she is somewhat drowsy and sleepy noted spontaneously moving her upper or lower extremities eyes are midline sluggish neck is supple with no meningeal signs no cervical bruit heart regular lungs with occasional rhonchi abdomen is soft and neuro examination revealed her to be sleepy not moving upper and lower extremities and the deep tendon reflex are sluggish plantars down family is considering no code status Objective Data Vital Signs Vital Signs: Vital Signs - 24 hr 09/16/20 12:22 09/16/20 14:00 09/16/20 14:09 Temperature 37.2 C Pulse Rate 97 96 100 Respiratory Rate 25 H 18 24 H Blood Pressure 100/57 L Pulse Oximetry 98 09/16/20 15:49 09/16/20 16:00 09/16/20 17:49 Temperature 36.4 C Pulse Rate 98 99 100 Respiratory Rate 22 H 24 H 19 Blood Pressure 131/78 Pulse Oximetry 100 09/16/20 18:00 09/16/20 20:00 09/16/20 21:04 Temperature 37.4 C Pulse Rate 99 101 H 103 H Respiratory Rate 21 H 19 19 Blood Pressure 101/70 90/85 L Pulse Oximetry 99 100 09/16/20 21:05 09/16/20 21:12 09/16/20 22:00 Temperature Pulse Rate 96 99 Respiratory Rate 18 19 Blood Pressure 123/74 Pulse Oximetry 99 95 09/17/20 00:00 09/17/20 02:00 09/17/20 04:00 Temperature 37.7 C H Pulse Rate 108 H 107 H 105 H Respiratory Rate 21 H 18 Blood Pressure 121/80 139/82 Pulse Oximetry 98 96 09/17/20 04:01 09/17/20 06:00 09/17/20 08:00 Temperature 37.6 C H 37.0 C Pulse Rate 107 H 107 H 107 H Respiratory Rate 26 H 22 H 18 Blood Pressure 119/79 152/83 H 142/68 H Pulse Oximetry 99 98 99 09/17/20 08:15 09/17/20 08:23 09/17/20 10:00 Temperature Pulse Rate 105 H 107 H 110 H Respiratory Rate 16 20 16 Blood Pressure 95/70 L Pulse Oximetry 98 Intake/Output Intake/Output: Intake & Output 09/14/20 09/15/20 09/16/2009/17/21 23:59 23:59 23:59 23:59 Intake Total 335 612 8969.0 227.5 Output Total 2400 1750 550 600 Balance -2165 -950 1185.0 -372.5 Meds/Results Medications: Active Medications Generic Name Dose Route Start Last Admin Trade Name Freq PRN Reason Stop Dose Admin Albuterol 2.5 mg 09/13/20 08:28 Albuterol Sulfate Neb 2.5 Mg/0.5 Ml Inh INHALATION Q4HRT PRN Shortness Of Breath Lipase/Protease/Amylase 1 cap 09/09/20 17:00 09/17/20 11:43 Lipase/Amylase/Protease 12,000 Units Cap PO Not Given TIDWM FLIP Budesonide 0.5 mg 09/12/20 08:00 09/17/20 08:15 Budesonide Respule Neb 0.5 Mg/2 Ml Amp INHALATION 0.5 mg Q12HRT FLIP Administration Carvedilol 25 mg 09/09/20 21:00 09/13/20 08:01 Carvedilol 25 Mg Tablet PO 25 mg Q12HR FLIP Administration Clonidine HCl 0.1 mg 09/09/20 09:00 09/17/20 09:12 Clonidine Hcl 0.1 Mg Tablet PO 0.1 mg DAILY FLIP Administration Dextrose 12.5 gm 09/09/20 18:58 Dextrose 50% 25 Gm/50 Ml Syringe IV PUSH PRN PRN Hypoglycemia Protocol Ergocalciferol 50,000 unit 09/13/20 09:00 09/13/20 08:03 Ergocalciferol 50,000 Unit Capsule PO 50,000 unit Mo@0900 FLIP Administration Furosemide 80 mg 09/09/20 17:00 09/17/20 09:07 Furosemide 80 Mg Tablet PO 80 mg BID FLIP Administration Glucagon 1 mg 09/09/20 18:58 Glucagon For Inj 1 Mg Vial IM PRN PRN Hypoglycemia Protocol Glucose 15 gm 09/09/20 18:58 Glucose Oral Gel 15 Gm Of Glucse In 37.5 Gm Tube PO PRN PRN Hypoglycemia Protocol Heparin Sodium (Porcine) 5,000 units 09/09/20 21:00 09/17/20 09:06 Heparin Sodium 5,000 Units/Ml Vial SUB-Q 5,000 units Q12HR FLIP Administration Dextrose 1,000 mls @ 100 mls/hr 09/09/20 18:58 Dextrose 5% 1,000 Ml IVPB PRN PRN Hypoglycemia Protocol Levetiracetam 750 mg/ Dextrose 107.5 mls @ 430 mls/hr 09/16/20 09:55 09/17/20 11:35 IVPB Infused Q12HR FLIP Infusion Insulin Aspart 2 - 5 units 09/10/20 08:00 09/17/20
--- NOTE | 2020-09-17 14:35 | PM.IMPN ---
Progress Note: A&P Assessment and Plan (1) Acute alteration in mental status: Code(s): R41.82 - Altered mental status, unspecified Status: Acute Assessment and Plan: 09/09 Patient is a 45-year-old female with history of end-stage renal disease on peritoneal dialysis patient is quite somnolent unable to provide any review of symptoms or history, her mother is present in the room providing history and some of the history is recorded from electronic chart, apparently patient was brought emergency department her yesterday after see a taken several tablets of Xanax to get high, patient was evaluated in emergency depart however patient's left AMA, 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 09/10 patient had a peritoneal dialysis last night this morning patient is little more awake and able to communicate and was able to swallow without difficulty, however patient does not recollect exactly happened by she was brought to the emergency, see denies taking any medication more than necessary, however her current mentation has improved, VAUGHN Gaytan patient will have return dialysis again today, patient is hypokalemic and hypomagnesemia will replace and monitor, clinically stable will have a PT OT evaluate the patient and further recommendation to follow. 09/11 today patient slightly better however still confused still does not know exactly what happened and by sees in hospital, later nursing staff spoke with the patient's sister and this is not her baseline, patient was seen by Nephrology who has seen her before and agrees the patient is still quite confused, patient will receive her peritoneal daily dialysis, so far there is no growth in urine and blood culture, will stop antibiotic, peritoneal fluid results are pending, will continue PT OT. Will discuss with the patient's family for the discharge planning. 09/12 today patient is more agitated and hallucinating not very cooperative, patient was given Zyprexa 5 mg IM which did improve and calm her down, her sister is present in the room, patient unable to provide any review of symptom. 09/13, on 06 throughout the day patient was quite agitated and combative patient was Zyprexa 10 mg and 2 mg of Ativan IM however there was no improvement on the night and this morning patient is quite hallucinating, is stable their dogs and snakes in the room and under the bed, after discussing with nursing staff, I spoke with flame annealing machine setter will transfer the patient to ICU to start on Precedex, patient will continue to have peritoneal dialysis, patient seen by Nephrology, will continue to monitor 09/14 pt is hallucinating in the bed history of benzodiazepine as well as opiates abuse, continue to monitor in icu 09/15 much the same not slept for days still hallucinating 09/16 seen by ICU MD 09/17 tired sleeping deeply, family at bedside. prognosis unclear, pt code status changed to dnr (2) UTI (urinary tract infection): Code(s): N39.0 - Urinary tract infection, site not specified Status: Resolved Assessment and Plan: Patient unable to provide review of symptom urine culture is negative (3) End-stage renal disease on peritoneal dialysis: Code(s): N18.6 - End stage renal disease; Z99.2 - Dependence on renal dialysis Status: Chronic Assessment and Plan: Nephrology to resume patient dialysis further recommendation to follow (4) Hypokalemia: Code(s): E87.6 - Hypokalemia
--- NOTE | 2020-09-17 16:32 | P.PNNP_ITS ---
Progress Note: A&P Assessment and Plan (1) End stage renal disease: Code(s): N18.6 - End stage renal disease Status: Chronic Assessment and Plan: * On peritoneal dialysis * volume status looks fine. * Electrolytes are okay (2) Hypokalemia: Code(s): E87.6 - Hypokalemia Status: Resolved Assessment and Plan: * Potassium okay today. (3) Altered mental status: Code(s): R41.82 - Altered mental status, unspecified Status: Acute Assessment and Plan: * This had improved but is now worse again. * Getting good dialysis I do not think this is uremia. * Sodium level is stable. * Ammonia level is okay * Calcium is Still 10.0. Ionized calcium turned out to be high still. I ordered pamidronate. * Aluminum is always a possibility as well in dialysis patients. This is unlikely in peritoneal dialysis. This was ordered and is pending. * CT of the head was negative on 09/09. * Patient was overdosed on medications before hand. Could drug withdrawal be doing this? She is on p.r.n. Ativan and Precedex. * Neuro consult: Seizures as a possibility. EEG has been ordered. * CT brain being done. (4) Hyponatremia: Code(s): E87.1 - Hypo-osmolality and hyponatremia Status: Acute Assessment and Plan: * chronic issues at baseline * Sodium level is up to 138. Off salt tablets. (5) UTI (urinary tract infection): Code(s): N39.0 - Urinary tract infection, site not specified Status: Resolved Assessment and Plan: * UA somewhat suggestive * Blood cultures are No growth to date. And urine cultures are negative. * on Levaquin. Subjective Date/time seen: 09/17/20 16:32 Interval history: still confused, hallucinating. Apparently was more oriented this morning but then this afternoon became more delirious. She is going for a stat head CT now. Exam Narrative: Exam Narrative: GENERAL APPEARANCE: WD/EN female in no acute distress but confused CARDIOVASCULAR: RRR, normal S1 and S2, no rub or gallop RESPIRATORY: Clear to auscultation ABDOMEN: soft, nontender, nondistended, positive bowel sounds present EXTREMITIES: no edema Skin no rash Or subcu nodules NEURO: Not very responsive. Eyes barely open when I call her name. Objective Data Vital Signs Vital Signs: Vital Signs - 24 hr 09/16/20 17:49 09/16/20 18:00 09/16/20 20:00 Temperature 37.4 C Pulse Rate 100 99 101 H Respiratory Rate 19 21 H 19 Blood Pressure 101/70 90/85 L Pulse Oximetry 99 100 09/16/20 21:04 09/16/20 21:05 09/16/20 21:12 Temperature Pulse Rate 103 H 96 Respiratory Rate 19 18 Blood Pressure Pulse Oximetry 99 09/16/20 22:00 09/17/20 00:00 09/17/20 02:00 Temperature 37.7 C H Pulse Rate 99 108 H 107 H Respiratory Rate 19 21 H 18 Blood Pressure 123/74 121/80 139/82 Pulse Oximetry 95 98 96 09/17/20 04:00 09/17/20 04:01 09/17/20 06:00 Temperature 37.6 C H Pulse Rate 105 H 107 H 107 H Respiratory Rate 26 H 22 H Blood Pressure 119/79 152/83 H Pulse Oximetry 99 98 09/17/20 08:00 09/17/20 08:15 09/17/20 08:23 Temperature 37.0 C Pu
--- NOTE | 2020-09-17 16:32 | PM.PNNEP ---
Progress Note: A&P Assessment and Plan (1) End stage renal disease: Code(s): N18.6 - End stage renal disease Status: Chronic Assessment and Plan: On peritoneal dialysis volume status looks fine. Electrolytes are okay (2) Hypokalemia: Code(s): E87.6 - Hypokalemia Status: Resolved Assessment and Plan: Potassium okay today. (3) Altered mental status: Code(s): R41.82 - Altered mental status, unspecified Status: Acute Assessment and Plan: This had improved but is now worse again. Getting good dialysis I do not think this is uremia. Sodium level is stable. Ammonia level is okay Calcium is Still 10.0. Ionized calcium turned out to be high still. I ordered pamidronate. Aluminum is always a possibility as well in dialysis patients. This is unlikely in peritoneal dialysis. This was ordered and is pending. CT of the head was negative on 09/09. Patient was overdosed on medications before hand. Could drug withdrawal be doing this? She is on p.r.n. Ativan and Precedex. Neuro consult: Seizures as a possibility. EEG has been ordered. CT brain being done. (4) Hyponatremia: Code(s): E87.1 - Hypo-osmolality and hyponatremia Status: Acute Assessment and Plan: chronic issues at baseline Sodium level is up to 138. Off salt tablets. (5) UTI (urinary tract infection): Code(s): N39.0 - Urinary tract infection, site not specified Status: Resolved Assessment and Plan: UA somewhat suggestive Blood cultures are No growth to date. And urine cultures are negative. on Levaquin. Subjective Date/time seen: 09/17/20 16:32 Interval history: still confused, hallucinating. Apparently was more oriented this morning but then this afternoon became more delirious. She is going for a stat head CT now. Exam Narrative: Exam Narrative: GENERAL APPEARANCE: WD/EN female in no acute distress but confused CARDIOVASCULAR: RRR, normal S1 and S2, no rub or gallop RESPIRATORY: Clear to auscultation ABDOMEN: soft, nontender, nondistended, positive bowel sounds present EXTREMITIES: no edema Skin no rash Or subcu nodules NEURO: Not very responsive. Eyes barely open when I call her name. Objective Data Vital Signs Vital Signs: Vital Signs - 24 hr 09/16/20 17:49 09/16/20 18:00 09/16/20 20:00 Temperature 37.4 C Pulse Rate 100 99 101 H Respiratory Rate 19 21 H 19 Blood Pressure 101/70 90/85 L Pulse Oximetry 99 100 09/16/20 21:04 09/16/20 21:05 09/16/20 21:12 Temperature Pulse Rate 103 H 96 Respiratory Rate 19 18 Blood Pressure Pulse Oximetry 99 09/16/20 22:00 09/17/20 00:00 09/17/20 02:00 Temperature 37.7 C H Pulse Rate 99 108 H 107 H Respiratory Rate 19 21 H 18 Blood Pressure 123/74 121/80 139/82 Pulse Oximetry 95 98 96 09/17/20 04:00 09/17/20 04:01 09/17/20 06:00 Temperature 37.6 C H Pulse Rate 105 H 107 H 107 H Respiratory Rate 26 H 22 H Blood Pressure 119/79 152/83 H Pulse Oximetry 99 98 09/17/20 08:00 09/17/20 08:15 09/17/20 08:23 Temperature 37.0 C Pulse Rate 107 H 105 H 107 H Respiratory Rate 18 16 20 Blood Pressure 142/68 H Pulse Oximetry 99 09/17/20 10:00 09/17/20 12:00 09/17/20 14:00 Temperature 37.1 C Pulse Rate 110 H 105 H 108 H Respiratory Rate 16 16 16 Blood Pressure 95/70 L 102/67 112/57 L Pulse Oximetry 98 98 97 Intake/Output Intake/Output: Intake & Output 09/14/20 09/15/20 09/16/20 09/17/20 23:59 23:59 23:59 23:59 Intake Total 946 569 6465.0 227.5 Output Total 2400 1750 550 600 Balance -2165 -950 1185.0 -372.5 Meds/Results Medications: Active Medications Generic Name Dose Route Start Last Admin Trade Name Freq PRN Reason Stop Dose Admin Albuterol 2.5 mg 09/13/20 08:28 Albuterol Sulfate Neb 2.5 Mg/0.5 Ml Inh INHALATION Q4HRT PRN Shortness Of Breath Lipase/P
[2020-09-17] MEDS: levETIRAcetam 1000MG/NACL100ML 1,000 MG/100 ML BAG 400 MG IVPB (16:35)
[2020-09-17] MEDS: PAMIDRONATE DISODIUM 30 MG in DEXTROSE 5% IN WATER 500 ML 127.5 MG IVPB (18:59)
[2020-09-17 20:18] LABS: Glucose Point of Care 177 mg/dl (65-105)
[2020-09-17] MEDS: INSULIN GLARGINE (*BKC) 100 UNITS/ML 30 UNITS SUB-Q (20:19)
[2020-09-18] VITALS (19 sets, daily range): BP systolic 93–149; BP diastolic 58–107; PULSE 97–117; RESP 17–26; TEMP 35.7–37.6; O2SAT 96–100
[2020-09-18] MEDS: ALPRAZolam (*CRX) 0.5 MG TABLET 1 MG PO (01:04)
[2020-09-18] MEDS: CENTRAL LINE FLUSH 10 ML IV PUSH ×3 (05:51→20:51)
[2020-09-18 06:52] LABS: Albumin Level 2.3 g/dL (3.5-5.1); Anion Gap 4 mmol/L (8-16); Blood Urea Nitrogen 22 mg/dL (7-17); Carbon Dioxide 30 mmol/L (22-30); Chloride 101 mmol/L (98-107); Estimated CRCL calculation 15 ml/min; Estimated Glomerular Filt Rate 9; Glucose 177 mg/dL (65-105); Hematocrit 29.9 % (37.0-47.0); Hemoglobin 9.7 g/dL (12.0-15.0); Magnesium 1.6 mg/dL (1.6-2.3); Mean Corpuscular HGB Conc 32.4 g/dl (32-36); Mean Corpuscular Volume 89.3 fl (80-100); Mean Platelet Volume 10.4 fl (7.4-10.4); Phosphorus 3.5 mg/dL (2.5-4.5); Platelet Count Result 213 k/mm3 (150-375); Potassium 3.6 mmol/L (3.4-5.0); Red Blood Count 3.35 M/mm3 (4.2-5.4); Red Cell Distribution Width 14.1 % (11.5-14.5); Sodium 135 mmol/L (137-145); White Blood Count 7.9 K/mm3 (4.5-10.0)
[2020-09-18] MEDS: BUDESONIDE RESPULE NEB 0.5 MG/2 ML AMP INHALATION ×2 (07:58→20:58)
--- NOTE | 2020-09-18 08:09 | WPDINTPN ---
Progress Note: A&P Assessment and Plan (1) Encephalopathy acute: Code(s): G93.40 - Encephalopathy, unspecified Status: Acute Assessment and Plan: Likely toxic metabolic encephalopathy and delirium -mental status much improved this morning, she does have waxing and waning of her mental status -continue Seroquel will add Xanax p.r.n. 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 Xanax (4) End-stage renal disease on peritoneal dialysis: Code(s): N18.6 - End stage renal disease; Z99.2 - Dependence on renal dialysis Status: Chronic Assessment and Plan: Continue peritoneal dialysis as per nephrology (5) UTI (urinary tract infection): Code(s): N39.0 - Urinary tract infection, site not specified Status: Resolved Assessment and Plan: Cultures negative although UA suggested UTI She is on antibiotics due to lack of good history Currently on Levaquin (initiated on 09/14/2020) (6) Hypertension: Code(s): I10 - Essential (primary) hypertension Status: Acute Assessment and Plan: Patient is on clonidine Coreg Procardia and Lasix (7) Diabetes: Code(s): E11.9 - Type 2 diabetes mellitus without complications Status: Acute Assessment and Plan: Sliding scale insulin Additional Plan DVT prophylaxis -subcu heparin Stress ulcer prophylaxis -patient is on Protonix Nutrition -diabetic diet I have discussed with multiple sisters including the POA and updated them with patient's condition and plan of care Code status: Full code Subjective Date/time seen: 09/18/20 08:09 Interval history: 09/18/2020: Patient seen and examined the ICU, patient is more awake, alert, oriented x2. Follows simple commands in all extremities. Had her peritoneal dialysis done last night. She does state she is hungry and denies any chest pain, SOB, N/V. complains of abdominal pain. . Patient is hemodynamically stable, afebrile, with adequate urine output. Review of Systems Review of Systems: All systems reviewed & are unremarkable except as noted in HPI and below Exam Narrative: Exam Narrative: General: Pt is more awake, alert, oriented x2, follows simple commands in all extremities, able to answer more questions this morning Lungs/Chest: Trachea central Clear BS B/L, No crackles or wheezing. Cardiac: RRR. Normal S1 S2. No murmurs Circulation: Pedal pulses are intact and symmetrical. Abdomen: Normal bowel sounds.. Soft. NT. ND. PD catheter in place Extremities: No clubbing, cyanosis or edema. Warm : Guillen in place Neurologic: Follows commands. Moves all 4 extremities PERRL cataract in right eye. Skin: Many tattoos all over her body Objective Data Vital Signs Vital Signs: Vital Signs - 24 hr 09/17/20 08:15 09/17/20 08:23 09/17/20 10:00 Temperature Pulse Rate 105 H 107 H 110 H Respiratory Rate 16 20 16 Blood Pressure 95/70 L Pulse Oximetry 98 09/17/20 12:00 09/17/20 14:00 09/17/20 16:00 Temperature 98.8 F 98.6 F Pulse Rate 105 H 108 H 111 H Respiratory Rate 16 16 16 Blood Pressure 102/67 112/57 L 113/97 H Pulse Oximetry 98 97 98 09/17/20 18:00 09/17/20 20:00 09/17/20 20:01 Temperature 99.4 F Pulse Rate 107 H 104 H 106 H Respiratory Rate 16 21 H Blood Pressure 125/95 H 153/67 H Pulse Oximetry 98 100 09/17/20 20:49 09/17/20 20:59 09/17/20 22:00 Temperature Pulse Rate 106 H 108 H 111 H Respiratory Rate 23 H 22 H Blood Pressure Pu
[2020-09-18 08:27] LABS: Glucose Point of Care 170 mg/dl (65-105)
[2020-09-18] MEDS: LIPASE/AMYLASE/PROTEASE 12,000 UNITS CAP 1 CAP PO ×3 (08:31→16:55)
[2020-09-18] MEDS: FUROSEMIDE 80 MG TABLET PO ×2 (08:32→16:55)
[2020-09-18] MEDS: POTASSIUM CHLORIDE 20 MEQ TABLET.ER PO ×2 (08:32→16:56)
[2020-09-18] MEDS: NIFEdipine 30 MG TAB.ER.24 PO (08:32)
[2020-09-18] MEDS: QUEtiapine FUMARATE 100 MG TABLET PO ×2 (08:32→20:51)
[2020-09-18] MEDS: ROSUVASTATIN 10 MG TABLET PO (08:32)
[2020-09-18] MEDS: NICOTINE (*PBKC) 21 MG PATCH 1 PATCH TRANSDERM (08:33)
[2020-09-18] MEDS: HEPARIN SODIUM 5,000 UNITS/ML VIAL 5000 UNITS SUB-Q ×2 (08:33→20:49)
[2020-09-18] MEDS: cloNIDine HCL 0.1 MG TABLET PO (08:34)
[2020-09-18] MEDS: PANTOPRAZOLE SODIUM IV 40 MG VIAL IV PUSH ×2 (08:34→20:49)
[2020-09-18] MEDS: LACTULOSE 20 GM/30 ML UDC PO ×2 (08:34→16:54)
[2020-09-18] MEDS: SCOPOLAMINE 1.5 MG PATCH 1 MG TRANSDERM (08:35)
[2020-09-18] MEDS: VITAMIN B CMPLX/VIT C/FOLIC AC 1 CAPSULE 1 CAP PO (08:35)
[2020-09-18] MEDS: levETIRAcetam IV 750 MG in DEXTROSE 5% 100 ML 200 MG IVPB ×2 (08:38→20:50)
[2020-09-18 11:56] LABS: Glucose Point of Care 194 mg/dl (65-105)
[2020-09-18] MEDS: oxyCODONE HCL (*CRX) 5 MG TAB IR 10 MG PO (12:15)
--- NOTE | 2020-09-18 13:39 | P.PNNP_ITS ---
Progress Note: A&P Assessment and Plan (1) End stage renal disease: Code(s): N18.6 - End stage renal disease Status: Chronic Assessment and Plan: * On peritoneal dialysis * fluid clear and flows good. She she was seen at 12:50 p.m. * volume status looks fine. * Electrolytes are okay * Discussed with Dr. Conway (2) Hypokalemia: Code(s): E87.6 - Hypokalemia Status: Resolved Assessment and Plan: * Potassium okay today. (3) Altered mental status: Code(s): R41.82 - Altered mental status, unspecified Status: Acute Assessment and Plan: * This had improved but is now worse again. * Getting good dialysis I do not think this is uremia. * Sodium level is stable. * Ammonia level is okay * Calcium is Still 10.0. Ionized calcium turned out to be high still. I ordered pamidronate. * Aluminum is always a possibility as well in dialysis patients. This is unlikely in peritoneal dialysis. This was ordered and is pending. * CT of the head was negative on 09/09. * Patient was overdosed on medications before hand. Could drug withdrawal be doing this? She is on p.r.n. Ativan and Precedex. * Neuro consult: Seizures as a possibility. EEG has been ordered. * CT brain unchanged. * Doing better overall. * (4) Hyponatremia: Code(s): E87.1 - Hypo-osmolality and hyponatremia Status: Acute Assessment and Plan: * chronic issues at baseline * Sodium level is stable at 135. Off salt tablets. (5) UTI (urinary tract infection): Code(s): N39.0 - Urinary tract infection, site not specified Status: Resolved Assessment and Plan: * UA somewhat suggestive * Blood cultures are neg growth to date. And urine cultures are negative. * on Levaquin. Subjective Date/time seen: 09/18/20 13:39 Interval history: still confused, But seems more interactive. She is taking her medications and eating on her own almost completely. She is less agitated and more calm. Exam Narrative: Exam Narrative: GENERAL APPEARANCE: WD/EN female in no acute distress but confused CARDIOVASCULAR: RRR, normal S1 and S2, no rub or gallop RESPIRATORY: Clear to auscultation ABDOMEN: soft, nontender, nondistended, positive bowel sounds present EXTREMITIES: no edema or cyanosis Skin no rash Or subcu nodules NEURO: Not very responsive. Eyes barely open when I call her name. Objective Data Vital Signs Vital Signs: Vital Signs - 24 hr 09/17/20 14:00 09/17/20 16:00 09/17/20 18:00 Temperature 37.0 C Pulse Rate 108 H 111 H 107 H Respiratory Rate 16 16 16 Blood Pressure 112/57 L 113/97 H 125/95 H Pulse Oximetry 97 98 98 09/17/20 20:00 09/17/20 20:01 09/17/20 20:49 Temperature 37.4 C Pulse Rate 104 H 106 H 106 H Respiratory Rate 21 H 23 H Blood Pressure 153/67 H Pulse Oximetry 100 09/17/20 20:59 09/17/20 22:00 09/17/20 22:01 Temperature Pulse Rate 108 H 111 H 111 H Respiratory Rate 22 H 25 H Blood Pressure 117/65 Pulse Oximetry 98 09/18/20 00:00 09/18/20 00:01 09/18/20 02:00 Temperature 37.6 C H Pulse Rate 113 H 117 H 108 H Respiratory Rate 26 H Blood Pressure 1
--- NOTE | 2020-09-18 13:39 | PM.PNNEP ---
Progress Note: A&P Assessment and Plan (1) End stage renal disease: Code(s): N18.6 - End stage renal disease Status: Chronic Assessment and Plan: On peritoneal dialysis fluid clear and flows good. She she was seen at 12:50 p.m. volume status looks fine. Electrolytes are okay Discussed with Dr. Conway (2) Hypokalemia: Code(s): E87.6 - Hypokalemia Status: Resolved Assessment and Plan: Potassium okay today. (3) Altered mental status: Code(s): R41.82 - Altered mental status, unspecified Status: Acute Assessment and Plan: This had improved but is now worse again. Getting good dialysis I do not think this is uremia. Sodium level is stable. Ammonia level is okay Calcium is Still 10.0. Ionized calcium turned out to be high still. I ordered pamidronate. Aluminum is always a possibility as well in dialysis patients. This is unlikely in peritoneal dialysis. This was ordered and is pending. CT of the head was negative on 09/09. Patient was overdosed on medications before hand. Could drug withdrawal be doing this? She is on p.r.n. Ativan and Precedex. Neuro consult: Seizures as a possibility. EEG has been ordered. CT brain unchanged. Doing better overall. (4) Hyponatremia: Code(s): E87.1 - Hypo-osmolality and hyponatremia Status: Acute Assessment and Plan: chronic issues at baseline Sodium level is stable at 135. Off salt tablets. (5) UTI (urinary tract infection): Code(s): N39.0 - Urinary tract infection, site not specified Status: Resolved Assessment and Plan: UA somewhat suggestive Blood cultures are neg growth to date. And urine cultures are negative. on Levaquin. Subjective Date/time seen: 09/18/20 13:39 Interval history: still confused, But seems more interactive. She is taking her medications and eating on her own almost completely. She is less agitated and more calm. Exam Narrative: Exam Narrative: GENERAL APPEARANCE: WD/EN female in no acute distress but confused CARDIOVASCULAR: RRR, normal S1 and S2, no rub or gallop RESPIRATORY: Clear to auscultation ABDOMEN: soft, nontender, nondistended, positive bowel sounds present EXTREMITIES: no edema or cyanosis Skin no rash Or subcu nodules NEURO: Not very responsive. Eyes barely open when I call her name. Objective Data Vital Signs Vital Signs: Vital Signs - 24 hr 09/17/20 14:00 09/17/20 16:00 09/17/20 18:00 Temperature 37.0 C Pulse Rate 108 H 111 H 107 H Respiratory Rate 16 16 16 Blood Pressure 112/57 L 113/97 H 125/95 H Pulse Oximetry 97 98 98 09/17/20 20:00 09/17/20 20:01 09/17/20 20:49 Temperature 37.4 C Pulse Rate 104 H 106 H 106 H Respiratory Rate 21 H 23 H Blood Pressure 153/67 H Pulse Oximetry 100 09/17/20 20:59 09/17/20 22:00 09/17/20 22:01 Temperature Pulse Rate 108 H 111 H 111 H Respiratory Rate 22 H 25 H Blood Pressure 117/65 Pulse Oximetry 98 09/18/20 00:00 09/18/20 00:01 09/18/20 02:00 Temperature 37.6 C H Pulse Rate 113 H 117 H 108 H Respiratory Rate 26 H Blood Pressure 149/77 H Pulse Oximetry 100 09/18/20 04:00 09/18/20 06:00 09/18/20 07:58 Temperature 37.3 C Pulse Rate 108 H 106 H 103 H Respiratory Rate 17 18 Blood Pressure 135/65 Pulse Oximetry 99 09/18/20 08:00 09/18/20 08:08 09/18/20 10:00 Temperature 35.9 C L Pulse Rate 101 H 101 H 105 H Respiratory Rate 18 18 Blood Pressure 122/107 H Pulse Oximetry 100 09/18/20 12:00 Temperature 35.7 C L Pulse Rate 116 H Respiratory Rate 22 H Blood Pressure 93/73 L Pulse Oximetry 100 Intake/Output Intake/Output: Intake & Output 09/15/20 09/16/20 09/17/20 09/18/20 23:59 23:59 23:59 23:59 Intake Total 800 1735.0 945.0 307.5 Output Total 1750 468 673 3106 Balance -950 1185.0 -30.0 -1091.5 Meds/Results Medi
[2020-09-18] MEDS: ALPRAZolam (*CRX) 0.5 MG TABLET PO ×2 (14:44→20:51)
[2020-09-18 15:41] LABS: Glucose Point of Care 146 mg/dl (65-105)
--- NOTE | 2020-09-18 16:42 | PC.NURSE ---
This patient, Bryant Flores, was transferred to [facility] on 09/18/20 at 1635. Personal belongings sent with patient. Report given to Edna LAWRENCE. Appropriate documentation sent with patient.
[2020-09-18] MEDS: MEGESTROL ACETATE (*CHEMO) 40 MG TABLET 120 MG PO (16:54)
[2020-09-18 20:01] LABS: Glucose Point of Care 304 mg/dl (65-105)
[2020-09-18] MEDS: levoFLOXacin 500 MG TABLET PO (20:50)
[2020-09-18] MEDS: INSULIN GLARGINE (*BKC) 100 UNITS/ML 30 UNITS SUB-Q (20:52)
[2020-09-19] VITALS (20 sets, daily range): BP systolic 100–150; BP diastolic 56–107; PULSE 111–135; RESP 18–20; TEMP 36.2–37.1; O2SAT 92–98
--- NOTE | 2020-09-19 02:09 | PC.NURSE ---
Patient became agitated and pulled out her PICC line with the tip intact. An occlusive dressing was applied. Dr. Olivo notified. #22 IV catheter inserted into left upper arm without difficulty.
[2020-09-19 05:53] LABS: Hematocrit 31.7 % (37.0-47.0); Hemoglobin 10.3 g/dL (12.0-15.0); Mean Corpuscular HGB Conc 32.5 g/dl (32-36); Mean Corpuscular Hemoglobin 28.9 pg (26-34); Mean Platelet Volume 10.6 fl (7.4-10.4); Platelet Count Result 211 k/mm3 (150-375); Red Blood Count 3.56 M/mm3 (4.2-5.4); White Blood Count 7.7 K/mm3 (4.5-10.0)
[2020-09-19 06:07] LABS: Anion Gap 6 mmol/L (8-16); Blood Urea Nitrogen 23 mg/dL (7-17); Calcium 10.4 mg/dL (8.4-10.2); Carbon Dioxide 28 mmol/L (22-30); Chloride 102 mmol/L (98-107); Estimated CRCL calculation 13 ml/min; Estimated Glomerular Filt Rate 8; Glucose 351 mg/dL (65-105); Magnesium 1.6 mg/dL (1.6-2.3); Phosphorus 3.4 mg/dL (2.5-4.5); Potassium 3.8 mmol/L (3.4-5.0); Sodium 136 mmol/L (137-145)
--- NOTE | 2020-09-19 07:33 | PCOTNOTE ---
Per RN, Patient ok to continue Occupational Therapy, will attempt re-assess.
[2020-09-19] MEDS: BUDESONIDE RESPULE NEB 0.5 MG/2 ML AMP INHALATION ×2 (07:55→20:02)
[2020-09-19] MEDS: INSULIN ASPART (*BKC) 100 UNITS/ML SUB-Q ×3 (08:01→17:07)
[2020-09-19] MEDS: LIPASE/AMYLASE/PROTEASE 12,000 UNITS CAP 1 CAP PO ×3 (08:04→16:58)
[2020-09-19] MEDS: FUROSEMIDE 80 MG TABLET PO ×2 (08:05→16:58)
[2020-09-19] MEDS: HEPARIN SODIUM 5,000 UNITS/ML VIAL 5000 UNITS SUB-Q ×2 (08:05→20:43)
[2020-09-19] MEDS: LACTULOSE 20 GM/30 ML UDC PO ×2 (08:07→16:58)
--- NOTE | 2020-09-19 08:09 | PCPTNOTE ---
Spoke with nurse, Edna, who stated therapy services were indicated to resume. Pt remained confused.
[2020-09-19] MEDS: NIFEdipine 30 MG TAB.ER.24 PO (08:11)
[2020-09-19] MEDS: POTASSIUM CHLORIDE 20 MEQ TABLET.ER PO ×2 (08:11→16:58)
[2020-09-19] MEDS: QUEtiapine FUMARATE 100 MG TABLET PO ×2 (08:11→20:44)
[2020-09-19] MEDS: ROSUVASTATIN 10 MG TABLET PO (08:12)
[2020-09-19] MEDS: VITAMIN B CMPLX/VIT C/FOLIC AC 1 CAPSULE 1 CAP PO (08:12)
[2020-09-19] MEDS: NICOTINE (*PBKC) 21 MG PATCH 1 PATCH TRANSDERM (08:17)
[2020-09-19] MEDS: cloNIDine HCL 0.1 MG TABLET PO (08:17)
[2020-09-19] MEDS: PANTOPRAZOLE SODIUM IV 40 MG VIAL IV PUSH ×2 (08:19→20:43)
[2020-09-19] MEDS: levETIRAcetam IV 750 MG in DEXTROSE 5% 100 ML 430 MG IVPB ×2 (08:22→20:44)
[2020-09-19 08:26] LABS: Glucose Point of Care 327 mg/dl (65-105)
--- NOTE | 2020-09-19 08:53 | P.PNNP_ITS ---
Progress Note: A&P Assessment and Plan (1) End stage renal disease: Code(s): N18.6 - End stage renal disease Status: Chronic Assessment and Plan: * On peritoneal dialysis * fluid clear and flows good. * volume status looks fine. * Electrolytes are okay * I talked with the dialysis nurse. She will get another treatment this evening. (2) Hypokalemia: Code(s): E87.6 - Hypokalemia Status: Resolved Assessment and Plan: * Potassium okay today. (3) Altered mental status: Code(s): R41.82 - Altered mental status, unspecified Status: Acute Assessment and Plan: * This had improved but is now worse again. * Getting good dialysis I do not think this is uremia. * Sodium level is stable. * Ammonia level is okay * Calcium is still 10.0. Ionized calcium turned out to be high still. I ordered pamidronate. I am not sure that it was given. Will ask for clarification on that. * Aluminum is pending. * CT of the head was negative on 09/09. * Now on p.r.n. medications for agitation. * Neuro consult: Seizures as a possibility. Following along. * CT brain unchanged. * Doing better overall. * (4) Hyponatremia: Code(s): E87.1 - Hypo-osmolality and hyponatremia Status: Acute Assessment and Plan: * chronic issues at baseline * Sodium level is stable around 135. Off salt tablets. (5) UTI (urinary tract infection): Code(s): N39.0 - Urinary tract infection, site not specified Status: Resolved Assessment and Plan: * UA somewhat suggestive * Blood cultures are neg growth to date. And urine cultures are negative. * on Levaquin day number 6 today.. Subjective Date/time seen: 09/19/20 08:53 Interval history: still confused, But seems more interactive. I did not kill the present. Please do not put me in detention She is taking her medications and eating on her own. not much of an appetite though. She is less agitated and more calm. Just worried. I try to clarify that she is in the hospital and that she is not under any sort of suspicion. Exam Narrative: Exam Narrative: GENERAL APPEARANCE: WD/EN female in no acute distress but confused CARDIOVASCULAR: RRR, normal S1 and S2, no rub or gallop RESPIRATORY: Clear to auscultation ABDOMEN: soft, nontender, nondistended, positive bowel sounds present EXTREMITIES: no edema or cyanosis Skin no rash NEURO: More interactive but very confused and delusional. Objective Data Vital Signs Vital Signs: Vital Signs - 24 hr 09/18/20 10:00 09/18/20 12:00 09/18/20 14:00 Temperature 35.7 C L Pulse Rate 105 H 116 H 104 H Respiratory Rate 22 H Blood Pressure 93/73 L Pulse Oximetry 100 09/18/20 16:00 09/18/20 16:44 09/18/20 18:00 Temperature 35.8 C L 36.6 C Pulse Rate 109 H 117 H 117 H Respiratory Rate 19 17 Blood Pressure 105/62 131/77 Pulse Oximetry 100 96 09/18/20 20:00 09/18/20 21:00 09/18/20 21:08 Temperature 36.0 C L Pulse Rate 110 H 108 H 106 H Respiratory Rate 20 Blood Pressure 111/58 L Pulse Oximetry 97 09/18/20 22:00 09/18/20 23:13 09/19/20 00:00 Temperature 36.3 C L
--- NOTE | 2020-09-19 08:53 | PM.PNNEP ---
Progress Note: A&P Assessment and Plan (1) End stage renal disease: Code(s): N18.6 - End stage renal disease Status: Chronic Assessment and Plan: On peritoneal dialysis fluid clear and flows good. volume status looks fine. Electrolytes are okay I talked with the dialysis nurse. She will get another treatment this evening. (2) Hypokalemia: Code(s): E87.6 - Hypokalemia Status: Resolved Assessment and Plan: Potassium okay today. (3) Altered mental status: Code(s): R41.82 - Altered mental status, unspecified Status: Acute Assessment and Plan: This had improved but is now worse again. Getting good dialysis I do not think this is uremia. Sodium level is stable. Ammonia level is okay Calcium is still 10.0. Ionized calcium turned out to be high still. I ordered pamidronate. I am not sure that it was given. Will ask for clarification on that. Aluminum is pending. CT of the head was negative on 09/09. Now on p.r.n. medications for agitation. Neuro consult: Seizures as a possibility. Following along. CT brain unchanged. Doing better overall. (4) Hyponatremia: Code(s): E87.1 - Hypo-osmolality and hyponatremia Status: Acute Assessment and Plan: chronic issues at baseline Sodium level is stable around 135. Off salt tablets. (5) UTI (urinary tract infection): Code(s): N39.0 - Urinary tract infection, site not specified Status: Resolved Assessment and Plan: UA somewhat suggestive Blood cultures are neg growth to date. And urine cultures are negative. on Levaquin day number 6 today.. Subjective Date/time seen: 09/19/20 08:53 Interval history: still confused, But seems more interactive. I did not kill the present. Please do not put me in penitentiary She is taking her medications and eating on her own. not much of an appetite though. She is less agitated and more calm. Just worried. I try to clarify that she is in the hospital and that she is not under any sort of suspicion. Exam Narrative: Exam Narrative: GENERAL APPEARANCE: WD/EN female in no acute distress but confused CARDIOVASCULAR: RRR, normal S1 and S2, no rub or gallop RESPIRATORY: Clear to auscultation ABDOMEN: soft, nontender, nondistended, positive bowel sounds present EXTREMITIES: no edema or cyanosis Skin no rash NEURO: More interactive but very confused and delusional. Objective Data Vital Signs Vital Signs: Vital Signs - 24 hr 09/18/20 10:00 09/18/20 12:00 09/18/20 14:00 Temperature 35.7 C L Pulse Rate 105 H 116 H 104 H Respiratory Rate 22 H Blood Pressure 93/73 L Pulse Oximetry 100 09/18/20 16:00 09/18/20 16:44 09/18/20 18:00 Temperature 35.8 C L 36.6 C Pulse Rate 109 H 117 H 117 H Respiratory Rate 19 17 Blood Pressure 105/62 131/77 Pulse Oximetry 100 96 09/18/20 20:00 09/18/20 21:00 09/18/20 21:08 Temperature 36.0 C L Pulse Rate 110 H 108 H 106 H Respiratory Rate 20 Blood Pressure 111/58 L Pulse Oximetry 97 09/18/20 22:00 09/18/20 23:13 09/19/20 00:00 Temperature 36.3 C L Pulse Rate 113 H 107 H 117 H Respiratory Rate 18 Blood Pressure 112/70 Pulse Oximetry 98 98 09/19/20 02:00 09/19/20 03:19 09/19/20 04:00 Temperature 36.2 C L Pulse Rate 113 H 111 H 113 H Respiratory Rate 20 Blood Pressure 107/56 L Pulse Oximetry 95 95 09/19/20 06:00 09/19/20 07:41 09/19/20 07:55 Temperature 37.1 C Pulse Rate 114 H 125 H 114 H Respiratory Rate 20 20 Blood Pressure 131/58 L Pulse Oximetry 97 09/19/20 08:03 Temperature Pulse Rate 117 H Respiratory Rate 20 Blood Pressure Pulse Oximetry Intake/Output Intake/Output: Intake & Output 09/16/20 09/17/20 09/18/20 09/19/20 23:59 23:59 23:59 23:59 Intake Total 1735.0 945.0 805.0 350 Output Total 431 567 9168 550 Balance
[2020-09-19 12:19] LABS: Glucose Point of Care 257 mg/dl (65-105)
--- NOTE | 2020-09-19 16:14 | PM.IMPN ---
Progress Note: A&P Assessment and Plan (1) Acute alteration in mental status: Code(s): R41.82 - Altered mental status, unspecified Status: Acute Assessment and Plan: 09/09 Patient is a 45-year-old female with history of end-stage renal disease on peritoneal dialysis patient is quite somnolent unable to provide any review of symptoms or history, her mother is present in the room providing history and some of the history is recorded from electronic chart, apparently patient was brought emergency department her yesterday after see a taken several tablets of Xanax to get high, patient was evaluated in emergency depart however patient's left AMA, this data integration developer patient was found somnolent on the floor EMS was called and patient was brought to the emergency department there are no more details available what exactly transpired, my suspicion patient has not received peritoneal dialysis and this may cause her to be somnolent as patient had taken benzodiazepine as well as opiates, will contact patient nephrology and resume peritoneal dialysis as soon as possible this may help patient mentation once clinically stable will have a PT OT evaluate the patient and further recommendation to follow. 09/10 patient had a peritoneal dialysis last night this morning patient is little more awake and able to communicate and was able to swallow without difficulty, however patient does not recollect exactly happened by she was brought to the emergency, see denies taking any medication more than necessary, however her current mentation has improved, VAUGHN Gaytan patient will have return dialysis again today, patient is hypokalemic and hypomagnesemia will replace and monitor, clinically stable will have a PT OT evaluate the patient and further recommendation to follow. 09/11 today patient slightly better however still confused still does not know exactly what happened and by sees in hospital, later nursing staff spoke with the patient's sister and this is not her baseline, patient was seen by Nephrology who has seen her before and agrees the patient is still quite confused, patient will receive her peritoneal daily dialysis, so far there is no growth in urine and blood culture, will stop antibiotic, peritoneal fluid results are pending, will continue PT OT. Will discuss with the patient's family for the discharge planning. 09/12 today patient is more agitated and hallucinating not very cooperative, patient was given Zyprexa 5 mg IM which did improve and calm her down, her sister is present in the room, patient unable to provide any review of symptom. 09/13, on 06 throughout the day patient was quite agitated and combative patient was Zyprexa 10 mg and 2 mg of Ativan IM however there was no improvement on the night and this morning patient is quite hallucinating, is stable their dogs and snakes in the room and under the bed, after discussing with nursing staff, I spoke with siebel developer will transfer the patient to ICU to start on Precedex, patient will continue to have peritoneal dialysis, patient seen by Nephrology, will continue to monitor 09/14 pt is hallucinating in the bed history of benzodiazepine as well as opiates abuse, continue to monitor in icu 09/15 much the same not slept for days still hallucinating 09/16 seen by ICU MD 09/17 tired sleeping deeply, family at bedside. prognosis unclear, pt code status changed to dnr 09/19 pt is more awake today after good sleep (2) UTI (urinary tract infection): Code(s): N39.0 - Urinary tract infection, site not specified Status: Resolved Assessment and Plan: Patient unable to provide review of symptom urine culture is negative (3) End-stage renal disease on peritoneal dialysis: Code(s): N18.6 - End stage renal disease; Z99.2 - Dependence on renal dialysis Status: Chronic Assessment and Plan: Nephrology to resume patient dialysis further recommendation to follow (4) [place]
[2020-09-19 16:46] LABS: Glucose Point of Care 249 mg/dl (65-105)
[2020-09-19] MEDS: MEGESTROL ACETATE (*CHEMO) 40 MG TABLET 120 MG PO (16:58)
[2020-09-19] MEDS: carvediloL 25 MG TABLET PO (20:44)
[2020-09-19] MEDS: INSULIN GLARGINE (*BKC) 100 UNITS/ML 30 UNITS SUB-Q (20:45)
[2020-09-19 20:47] LABS: Glucose Point of Care 375 mg/dl (65-105)
[2020-09-20] VITALS (22 sets, daily range): BP systolic 90–159; BP diastolic 42–91; PULSE 70–122; RESP 16–20; TEMP 36.3–37.2; O2SAT 93–100
[2020-09-20] MEDS: ALPRAZolam (*CRX) 0.5 MG TABLET PO ×2 (01:52→21:20)
--- NOTE | 2020-09-20 05:49 | P.PNNP_ITS ---
Progress Note: A&P Assessment and Plan (1) End stage renal disease: Code(s): N18.6 - End stage renal disease Status: Chronic Assessment and Plan: * On peritoneal dialysis * fluid clear and flows good. * volume status looks fine. * Electrolytes are doing well. * I talked with the dialysis nurse. She will get another treatment this evening. (2) Hypokalemia: Code(s): E87.6 - Hypokalemia Status: Resolved Assessment and Plan: * Potassium okay today. (3) Altered mental status: Code(s): R41.82 - Altered mental status, unspecified Status: Acute Assessment and Plan: * continues to be delusional, nonfocused, a bit agitated. * Getting good dialysis I do not think this is uremia. * Sodium level is stable. * Ammonia level is okay * tox screens were negative on admission. * Calcium is still 10.4. will check bone scan, maurice level, PTH, vit d. may be due to sedentary state. * Aluminum is pending. * CT of the head was negative on 09/09. * Now on p.r.n. medications for agitation. * Neuro consult on the case. * CT brain unchanged. * still not herself. * (4) Hyponatremia: Code(s): E87.1 - Hypo-osmolality and hyponatremia Status: Acute Assessment and Plan: * chronic issues at baseline * Sodium level is stable around 135. Off salt tablets. (5) UTI (urinary tract infection): Code(s): N39.0 - Urinary tract infection, site not specified Status: Resolved Assessment and Plan: * UA somewhat suggestive * Blood cultures are neg growth to date. And urine cultures are negative. * on Levaquin day number 7 today.. Subjective Date/time seen: 09/20/20 05:49 Interval history: still confused, patient did not sleep all night. She is taking her medications and eating on her own. not much of an appetite though. On PD cathy it well. fluid clear. flows good. UF doing well. Seen at 5:40am Exam 2 Narrative: Exam Narrative: WDWN in NAD skin no rash head ncat lungs clear bilaterally cor reg no rub abd BS+ nontender and soft ext no edema. Objective Data Vital Signs Vital Signs: Vital Signs - 24 hr 09/19/20 06:00 09/19/20 07:41 09/19/20 07:55 Temperature 37.1 C Pulse Rate 114 H 125 H 114 H Respiratory Rate 20 20 Blood Pressure 131/58 L Pulse Oximetry 97 09/19/20 08:00 09/19/20 08:03 09/19/20 10:00 Temperature Pulse Rate 124 H 117 H 114 H Respiratory Rate 20 Blood Pressure Pulse Oximetry 09/19/20 12:00 09/19/20 14:00 09/19/20 16:00 Temperature 37.1 C 37.0 C Pulse Rate 115 H 119 H 122 H Respiratory Rate 20 20 Blood Pressure 134/107 H 100/88 Pulse Oximetry 93 94 09/19/20 18:00 09/19/20 20:00 09/19/20 20:03 Temperature 36.9 C Pulse Rate 130 H 135 H 126 H Respiratory Rate 20 18 18 Blood Pressure 129/97 H 150/72 H Pulse Oximetry 98 92 09/19/20 20:13 09/19/20 20:44 09/19/20 22:00 Temperature Pulse Rate 119 H 135 H 122 H Respiratory Rate 18 Blood Pressure Pulse Oximetry
--- NOTE | 2020-09-20 05:49 | PM.PNNEP ---
Progress Note: A&P Assessment and Plan (1) End stage renal disease: Code(s): N18.6 - End stage renal disease Status: Chronic Assessment and Plan: On peritoneal dialysis fluid clear and flows good. volume status looks fine. Electrolytes are doing well. I talked with the dialysis nurse. She will get another treatment this evening. (2) Hypokalemia: Code(s): E87.6 - Hypokalemia Status: Resolved Assessment and Plan: Potassium okay today. (3) Altered mental status: Code(s): R41.82 - Altered mental status, unspecified Status: Acute Assessment and Plan: continues to be delusional, nonfocused, a bit agitated. Getting good dialysis I do not think this is uremia. Sodium level is stable. Ammonia level is okay tox screens were negative on admission. Calcium is still 10.4. will check bone scan, maurice level, PTH, vit d. may be due to sedentary state. Aluminum is pending. CT of the head was negative on 09/09. Now on p.r.n. medications for agitation. Neuro consult on the case. CT brain unchanged. still not herself. (4) Hyponatremia: Code(s): E87.1 - Hypo-osmolality and hyponatremia Status: Acute Assessment and Plan: chronic issues at baseline Sodium level is stable around 135. Off salt tablets. (5) UTI (urinary tract infection): Code(s): N39.0 - Urinary tract infection, site not specified Status: Resolved Assessment and Plan: UA somewhat suggestive Blood cultures are neg growth to date. And urine cultures are negative. on aq day number 7 today.. Subjective Date/time seen: 09/20/20 05:49 Interval history: still confused, patient did not sleep all night. She is taking her medications and eating on her own. not much of an appetite though. On PD cathy it well. fluid clear. flows good. UF doing well. Seen at 5:40am Exam Narrative: Exam Narrative: WDWN in NAD skin no rash head ncat lungs clear bilaterally cor reg no rub abd BS+ nontender and soft ext no edema. Objective Data Vital Signs Vital Signs: Vital Signs - 24 hr 09/19/20 06:00 09/19/20 07:41 09/19/20 07:55 Temperature 37.1 C Pulse Rate 114 H 125 H 114 H Respiratory Rate 20 20 Blood Pressure 131/58 L Pulse Oximetry 97 09/19/20 08:00 09/19/20 08:03 09/19/20 10:00 Temperature Pulse Rate 124 H 117 H 114 H Respiratory Rate 20 Blood Pressure Pulse Oximetry 09/19/20 12:00 09/19/20 14:00 09/19/20 16:00 Temperature 37.1 C 37.0 C Pulse Rate 115 H 119 H 122 H Respiratory Rate 20 20 Blood Pressure 134/107 H 100/88 Pulse Oximetry 93 94 09/19/20 18:00 09/19/20 20:00 09/19/20 20:03 Temperature 36.9 C Pulse Rate 130 H 135 H 126 H Respiratory Rate 20 18 18 Blood Pressure 129/97 H 150/72 H Pulse Oximetry 98 92 09/19/20 20:13 09/19/20 20:44 09/19/20 22:00 Temperature Pulse Rate 119 H 135 H 122 H Respiratory Rate 18 Blood Pressure Pulse Oximetry 09/19/20 23:46 09/20/20 00:00 09/20/20 02:00 Temperature 36.4 C Pulse Rate 128 H 122 H 118 H Respiratory Rate 20 20 Blood Pressure 127/98 H Pulse Oximetry 94 94 09/20/20 04:00 09/20/20 05:44 Temperature 36.3 C L Pulse Rate 85 109 H Respiratory Rate 16 Blood Pressure 106/42 L Pulse Oximetry 100 Intake/Output Intake/Output: Intake & Output 09/17/20 09/18/20 09/19/20 09/20/20 23:59 23:59 23:59 23:59 Intake Total 945.0 805.0 815.0 Output Total 975 7659 559 200 Balance -30.0 -1494.0 256.0 -200 Meds/Results Medications: Active Medications Generic Name Dose Route Start Last Admin Trade Name Freq PRN Reason Stop Dose Admin Albuterol 2.5 mg 09/13/20 08:28 Albuterol Sulfate Neb 2.5 Mg/0.5 Ml Inh INHALATION Q4HRT PRN Shortness Of Breath Alprazolam 0.5 mg 09/18/20 08:10 09/20/20 01:52 Alprazolam (*Crx) 0.5 Mg
[2020-09-20 06:40] LABS: Hematocrit 32.2 % (37.0-47.0); Hemoglobin 10.7 g/dL (12.0-15.0); Mean Corpuscular HGB Conc 33.2 g/dl (32-36); Mean Corpuscular Hemoglobin 29.4 pg (26-34); Mean Corpuscular Volume 88.5 fl (80-100); Mean Platelet Volume 10.5 fl (7.4-10.4); Platelet Count Result 227 k/mm3 (150-375); Red Blood Count 3.64 M/mm3 (4.2-5.4); Red Cell Distribution Width 13.9 % (11.5-14.5); White Blood Count 10.6 K/mm3 (4.5-10.0)
[2020-09-20 06:52] LABS: Albumin Level 2.8 g/dL (3.5-5.1); Anion Gap 8 mmol/L (8-16); Blood Urea Nitrogen 25 mg/dL (7-17); Calcium 10.3 mg/dL (8.4-10.2); Carbon Dioxide 26 mmol/L (22-30); Chloride 102 mmol/L (98-107); Estimated CRCL calculation 13 ml/min; Estimated Glomerular Filt Rate 7; Glucose 361 mg/dL (65-105); Magnesium 1.5 mg/dL (1.6-2.3); Phosphorus 3.4 mg/dL (2.5-4.5); Potassium 4.5 mmol/L (3.4-5.0); Sodium 136 mmol/L (137-145)
[2020-09-20 07:48] LABS: Glucose Point of Care 304 mg/dl (65-105)
[2020-09-20 07:56] LABS: Vitamin D 25 Hydroxy 15.7 ng/mL
[2020-09-20] MEDS: BUDESONIDE RESPULE NEB 0.5 MG/2 ML AMP INHALATION ×2 (08:59→20:59)
[2020-09-20] MEDS: LIPASE/AMYLASE/PROTEASE 12,000 UNITS CAP 1 CAP PO ×3 (09:00→18:04)
[2020-09-20] MEDS: INSULIN ASPART (*BKC) 100 UNITS/ML SUB-Q ×3 (09:00→17:59)
--- NOTE | 2020-09-20 10:03 | WPDNEUROLOGY ---
Neurology EEG Report General Information Date of Study: 09/20/20 TEST eeg DIAGNOSIS Change in the mental status CONDITION OF RECORDING awake eyes open and constant body movements, shaking twitching and jerking EEG NUMBER [id number] CLINICAL HISTORY change in the mental status EEG DESCRIPTION throughout the tracing low-voltage beta activity seen admixed with multiple movement artifacts, no change in the background rhythm noted, hyperventilation not done, photic stimulation not done. IMPRESSION post significant diagnosis can be made on the basis of this EEG as the whole tracing is compromised by the multiple movement artifacts
--- NOTE | 2020-09-20 10:58 | PCDIET ---
Nutrition Follow-Up Complete: Nutrition Diagnosis: Inadequate oral intake related to altered mental status as evidenced by intakes 25% or below at most meals since admission. Nutrition Goal: Patient to consume 50% of meals/supplements or greater. Goal in progress. Patient took about 1/2 Nepro and a few bites of eggs at breakfast. Overall intake remains limited. Unable to obtain nutrition related information from patient due to altered mental status. Did discuss importance of taking Nepro Shakes; staff will continue to encourage. Last recorded weight is 105.1 kg which is increased from last review, despite -I/O. Bowel Motility: No documented BM. Recommend adding medication to promote BM, if medically appropriate. Lactulose continued. Labs Reviewed: Hgb (10.7), Hct (32.2), Glu (304), BUN (25), Cr (6.3), Na (136), Alb (2.8), PTH (257), Magnesium (1.5), Ca (10.3), 25-OH Vitamin D (15.7) Meds Noted: Creon, Drisdol, Lasix, Pulmicort, Coreg, Catapres, Novolog, Lantus, Lactulose, Protonix, KCl, Levaquin, Megace, Procardia, Crestor, Nephrocaps Additional Notes: Right cheek scab; no documented pressure sores. Will continue to monitor with same goal. Nutrition Monitoring and Evaluation: Follow up every 3 days.
[2020-09-20] MEDS: ROSUVASTATIN 10 MG TABLET PO (11:23)
[2020-09-20] MEDS: QUEtiapine FUMARATE 100 MG TABLET PO ×2 (11:23→21:19)
[2020-09-20] MEDS: carvediloL 25 MG TABLET PO ×2 (11:26→21:18)
[2020-09-20] MEDS: POTASSIUM CHLORIDE 20 MEQ TABLET.ER PO ×2 (11:29→18:01)
[2020-09-20] MEDS: NIFEdipine 30 MG TAB.ER.24 PO (11:29)
[2020-09-20] MEDS: LACTULOSE 20 GM/30 ML UDC PO ×2 (11:30→18:02)
[2020-09-20] MEDS: PANTOPRAZOLE SODIUM IV 40 MG VIAL IV PUSH ×2 (11:30→21:20)
[2020-09-20] MEDS: NICOTINE (*PBKC) 21 MG PATCH 1 PATCH TRANSDERM (11:30)
[2020-09-20] MEDS: FUROSEMIDE 80 MG TABLET PO ×2 (11:32→18:01)
[2020-09-20] MEDS: VITAMIN B CMPLX/VIT C/FOLIC AC 1 CAPSULE 1 CAP PO (11:34)
[2020-09-20] MEDS: HEPARIN SODIUM 5,000 UNITS/ML VIAL 5000 UNITS SUB-Q ×2 (11:48→21:20)
[2020-09-20] MEDS: cloNIDine HCL 0.1 MG TABLET PO (11:48)
[2020-09-20] MEDS: ERGOCALCIFEROL 50,000 UNIT CAPSULE 50000 UNITS PO (11:50)
[2020-09-20] MEDS: levETIRAcetam IV 750 MG in DEXTROSE 5% 100 ML 430 MG IVPB (11:51)
--- NOTE | 2020-09-20 14:17 | PM.IMPN ---
Progress Note: A&P Assessment and Plan (1) Acute alteration in mental status: Code(s): R41.82 - Altered mental status, unspecified Status: Acute Assessment and Plan: 09/09 Patient is a 45-year-old female with history of end-stage renal disease on peritoneal dialysis patient is quite somnolent unable to provide any review of symptoms or history, her mother is present in the room providing history and some of the history is recorded from electronic chart, apparently patient was brought emergency department her yesterday after see a taken several tablets of Xanax to get high, patient was evaluated in emergency depart however patient's left AMA, 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 09/10 patient had a peritoneal dialysis last night this morning patient is little more awake and able to communicate and was able to swallow without difficulty, however patient does not recollect exactly happened by she was brought to the emergency, see denies taking any medication more than necessary, however her current mentation has improved, VAUGHN Gaytan patient will have return dialysis again today, patient is hypokalemic and hypomagnesemia will replace and monitor, clinically stable will have a PT OT evaluate the patient and further recommendation to follow. 09/11 today patient slightly better however still confused still does not know exactly what happened and by sees in hospital, later nursing staff spoke with the patient's sister and this is not her baseline, patient was seen by Nephrology who has seen her before and agrees the patient is still quite confused, patient will receive her peritoneal daily dialysis, so far there is no growth in urine and blood culture, will stop antibiotic, peritoneal fluid results are pending, will continue PT OT. Will discuss with the patient's family for the discharge planning. 09/12 today patient is more agitated and hallucinating not very cooperative, patient was given Zyprexa 5 mg IM which did improve and calm her down, her sister is present in the room, patient unable to provide any review of symptom. 09/13, on 06 throughout the day patient was quite agitated and combative patient was Zyprexa 10 mg and 2 mg of Ativan IM however there was no improvement on the night and this morning patient is quite hallucinating, is stable their dogs and snakes in the room and under the bed, after discussing with nursing staff, I spoke with tire service technician will transfer the patient to ICU to start on Precedex, patient will continue to have peritoneal dialysis, patient seen by Nephrology, will continue to monitor 09/14 pt is hallucinating in the bed history of benzodiazepine as well as opiates abuse, continue to monitor in icu 09/15 much the same not slept for days still hallucinating 09/16 seen by ICU MD 09/17 tired sleeping deeply, family at bedside. prognosis unclear, pt code status changed to dnr 09/19 sleeping 09/20 pt is more awake today (2) UTI (urinary tract infection): Code(s): N39.0 - Urinary tract infection, site not specified Status: Resolved Assessment and Plan: Patient unable to provide review of symptom urine culture is negative (3) End-stage renal disease on peritoneal dialysis: Code(s): N18.6 - End stage renal disease; Z99.2 - Dependence on renal dialysis Status: Chronic Assessment and Plan: Nephrology to resume patient dialysis further recommendation to follow (4) Hypokal
[2020-09-20 14:43] LABS: Glucose Point of Care 298 mg/dl (65-105)
[2020-09-20 17:54] LABS: Glucose Point of Care 208 mg/dl (65-105)
[2020-09-20] MEDS: MEGESTROL ACETATE (*CHEMO) 40 MG TABLET 120 MG PO (18:00)
[2020-09-20 20:51] LABS: Glucose Point of Care 265 mg/dl (65-105)
[2020-09-20] MEDS: levETIRAcetam Tablet 250 MG, levETIRAcetam Tablet 500 MG 750 MG PO (21:18)
[2020-09-20] MEDS: INSULIN GLARGINE (*BKC) 100 UNITS/ML 30 UNITS SUB-Q (21:20)
[2020-09-20] MEDS: levoFLOXacin 500 MG TABLET PO (21:21)
[2020-09-21] VITALS (16 sets, daily range): BP systolic 90–151; BP diastolic 54–109; PULSE 92–124; RESP 16–20; TEMP 36.1–36.6; O2SAT 94–98
[2020-09-21 04:54] LABS: Hematocrit 32.8 % (37.0-47.0); Hemoglobin 10.5 g/dL (12.0-15.0); Mean Corpuscular Hemoglobin 29.6 pg (26-34); Mean Corpuscular Volume 92.4 fl (80-100); Mean Platelet Volume 11.3 fl (7.4-10.4); Platelet Count Result 188 k/mm3 (150-375); Red Blood Count 3.55 M/mm3 (4.2-5.4); Red Cell Distribution Width 13.9 % (11.5-14.5); White Blood Count 9.6 K/mm3 (4.5-10.0)
[2020-09-21 05:07] LABS: Albumin Level 2.8 g/dL (3.5-5.1); Anion Gap 7 mmol/L (8-16); Blood Urea Nitrogen 31 mg/dL (7-17); Carbon Dioxide 26 mmol/L (22-30); Chloride 103 mmol/L (98-107); Estimated CRCL calculation 12 ml/min; Estimated Glomerular Filt Rate 7; Glucose 461 mg/dL (65-105); Phosphorus 3.5 mg/dL (2.5-4.5); Potassium 4.5 mmol/L (3.4-5.0); Sodium 136 mmol/L (137-145)
[2020-09-21 05:09] LABS: Anion Gap 7 mmol/L (8-16); Blood Urea Nitrogen 31 mg/dL (7-17); Calcium 9.9 mg/dL (8.4-10.2); Carbon Dioxide 27 mmol/L (22-30); Chloride 102 mmol/L (98-107); Estimated CRCL calculation 12 ml/min; Estimated Glomerular Filt Rate 7; Glucose 460 mg/dL (65-105); Magnesium 1.7 mg/dL (1.6-2.3); Phosphorus 3.5 mg/dL (2.5-4.5); Potassium 4.7 mmol/L (3.4-5.0); Sodium 136 mmol/L (137-145)
[2020-09-21 08:29] LABS: Glucose Point of Care 455 mg/dl (65-105)
[2020-09-21] MEDS: LIPASE/AMYLASE/PROTEASE 12,000 UNITS CAP 1 CAP PO (09:02)
[2020-09-21] MEDS: ROSUVASTATIN 10 MG TABLET PO (09:02)
[2020-09-21] MEDS: levETIRAcetam Tablet 250 MG, levETIRAcetam Tablet 500 MG 750 MG PO ×2 (09:02→20:21)
[2020-09-21] MEDS: POTASSIUM CHLORIDE 20 MEQ TABLET.ER PO (09:03)
[2020-09-21] MEDS: FUROSEMIDE 80 MG TABLET PO (09:03)
[2020-09-21] MEDS: VITAMIN B CMPLX/VIT C/FOLIC AC 1 CAPSULE 1 CAP PO (09:03)
[2020-09-21] MEDS: NICOTINE (*PBKC) 21 MG PATCH 1 PATCH TRANSDERM (09:04)
[2020-09-21] MEDS: LACTULOSE 20 GM/30 ML UDC PO (09:04)
[2020-09-21] MEDS: carvediloL 25 MG TABLET PO ×2 (09:04→20:20)
[2020-09-21] MEDS: NIFEdipine 30 MG TAB.ER.24 PO (09:04)
[2020-09-21] MEDS: QUEtiapine FUMARATE 100 MG TABLET PO ×2 (09:04→20:20)
[2020-09-21] MEDS: PANTOPRAZOLE SODIUM IV 40 MG VIAL IV PUSH ×2 (09:05→20:17)
[2020-09-21] MEDS: SCOPOLAMINE 1.5 MG PATCH 1 MG TRANSDERM (09:05)
[2020-09-21] MEDS: INSULIN GLARGINE (*BKC) 100 UNITS/ML 20 UNITS SUB-Q ×2 (09:05→12:49)
[2020-09-21] MEDS: INSULIN ASPART (*BKC) 100 UNITS/ML 10 UNITS SUB-Q (09:06)
[2020-09-21] MEDS: HEPARIN SODIUM 5,000 UNITS/ML VIAL 5000 UNITS SUB-Q ×2 (09:08→21:00)
[2020-09-21] MEDS: cloNIDine HCL 0.1 MG TABLET PO (09:08)
--- NOTE | 2020-09-21 09:08 | P.PNNP_ITS ---
Progress Note: A&P Assessment and Plan (1) End stage renal disease: Code(s): N18.6 - End stage renal disease Status: Chronic Assessment and Plan: * continue nightly peritoneal dialysis * treatments appear to be going well * electrolytes, volume status, and clearance satisfactory * continue current therapy (2) Hypokalemia: Code(s): E87.6 - Hypokalemia Status: Resolved Assessment and Plan: * low on admission but stable now * follow trend (3) Altered mental status: Code(s): R41.82 - Altered mental status, unspecified Status: Acute Assessment and Plan: * etiology remains unclear * continues to be delusional, non-focused, and agitated * uremia seems less likely since she is getting good dialysis * sodium level is stable; and ammonia level is okay * Aluminum is pending * CT of the head was negative x 2 * on p.r.n. medications for agitatio. * Neurology following * continue supportive therapy (4) Hyponatremia: Code(s): E87.1 - Hypo-osmolality and hyponatremia Status: Acute Assessment and Plan: * chronic issues at baseline * sodium level is stable without need of salt tablets (5) UTI (urinary tract infection): Code(s): N39.0 - Urinary tract infection, site not specified Status: Resolved Assessment and Plan: * UA somewhat suggestive * blood and urine cultures are negative to date. * on Levaquin Extensive discussion (> 20 minutes) with family at bedside regarding issues as noted above and unfortunate lack of progress to date to facilitate improvement. Will continue to follow. Subjective Date/time seen: 09/21/20 09:08 Tolerated CCPD treatment overnight fairly well; remains quite confused/altered at the time of my visit; family at bedside and we discussed the complex situation. Exam Narrative: Exam Narrative: General: WD/WN female - quite confused/altered Heart: normal S1 and S2; no rub Lungs: clear to auscultation Abdomen: soft, nontender, nondistended, positive bowel sounds Extremities: no cyanosis or clubbing; no edema Skin: warm and dry Objective Data Vital Signs Vital Signs: Vital Signs Temp Pulse Resp BP Pulse Ox 09/21/20 09:04 95 09/21/20 08:50 36.5 C 95 20 93/57 L 98 09/21/20 04:00 36.4 C 97 18 90/57 L 97 09/21/20 03:44 92 09/20/20 23:38 100 09/20/20 23:18 36.6 C 105 H 18 90/49 L 97 09/20/20 21:50 111 H 09/20/20 21:42 111 H 20 09/20/20 21:35 114 H 20 09/20/20 21:18 100 09/20/20 21:00 36.6 C 103 H 20 100/50 L 09/20/20 20:00 36.6 C 106 H 20 100/50 L 97 09/20/20 18:00 103 H 09/20/20 16:00 37.2 C 70 18 159/80 H 97 09/20/20 14:00 101 H 09/20/20 12:00 37.1 C 111 H 18 138/91 H 96 09/20/20 11:26 108 H 09/20/20 10:00 108 H Intake/Output Intake/Output: Intake & Output 09/18/20 09/19/20 09/20/20 09/21/20 23:59 23:59 23:59 23:59 Intake Total 805.0 815.0 1027.5 0 Output Total 2291 827 6679 1752 Balance -1494.0 256.0 -1705.5 -1752 Meds/Results Medications: Active Medications Generic Name Dose Route Start Last Admin Trade Name F
--- NOTE | 2020-09-21 09:08 | PM.PNNEP ---
Progress Note: A&P Assessment and Plan (1) End stage renal disease: Code(s): N18.6 - End stage renal disease Status: Chronic Assessment and Plan: continue nightly peritoneal dialysis treatments appear to be going well electrolytes, volume status, and clearance satisfactory continue current therapy (2) Hypokalemia: Code(s): E87.6 - Hypokalemia Status: Resolved Assessment and Plan: low on admission but stable now follow trend (3) Altered mental status: Code(s): R41.82 - Altered mental status, unspecified Status: Acute Assessment and Plan: etiology remains unclear continues to be delusional, non-focused, and agitated uremia seems less likely since she is getting good dialysis sodium level is stable; and ammonia level is okay Aluminum is pending CT of the head was negative x 2 on p.r.n. medications for agitatio. Neurology following continue supportive therapy (4) Hyponatremia: Code(s): E87.1 - Hypo-osmolality and hyponatremia Status: Acute Assessment and Plan: chronic issues at baseline sodium level is stable without need of salt tablets (5) UTI (urinary tract infection): Code(s): N39.0 - Urinary tract infection, site not specified Status: Resolved Assessment and Plan: UA somewhat suggestive blood and urine cultures are negative to date. on Levaquin Extensive discussion (> 20 minutes) with family at bedside regarding issues as noted above and unfortunate lack of progress to date to facilitate improvement. Will continue to follow. Subjective Date/time seen: 09/21/20 09:08 Tolerated CCPD treatment overnight fairly well; remains quite confused/altered at the time of my visit; family at bedside and we discussed the complex situation. Exam Narrative: Exam Narrative: General: WD/WN female - quite confused/altered Heart: normal S1 and S2; no rub Lungs: clear to auscultation Abdomen: soft, nontender, nondistended, positive bowel sounds Extremities: no cyanosis or clubbing; no edema Skin: warm and dry Objective Data Vital Signs Vital Signs: Vital Signs Temp Pulse Resp BP Pulse Ox 09/21/20 09:04 95 09/21/20 08:50 36.5 C 95 20 93/57 L 98 09/21/20 04:00 36.4 C 97 18 90/57 L 97 09/21/20 03:44 92 09/20/20 23:38 100 09/20/20 23:18 36.6 C 105 H 18 90/49 L 97 09/20/20 21:50 111 H 09/20/20 21:42 111 H 20 09/20/20 21:35 114 H 20 09/20/20 21:18 100 09/20/20 21:00 36.6 C 103 H 20 100/50 L 09/20/20 20:00 36.6 C 106 H 20 100/50 L 97 09/20/20 18:00 103 H 09/20/20 16:00 37.2 C 70 18 159/80 H 97 09/20/20 14:00 101 H 09/20/20 12:00 37.1 C 111 H 18 138/91 H 96 09/20/20 11:26 108 H 09/20/20 10:00 108 H Intake/Output Intake/Output: Intake & Output 09/18/20 09/19/20 09/20/20 09/21/20 23:59 23:59 23:59 23:59 Intake Total 805.0 815.0 1027.5 0 Output Total 2299 559 2733 1752 Balance -1494.0 256.0 -1705.5 -1752 Meds/Results Medications: Active Medications Generic Name Dose Route Start Last Admin Trade Name Freq PRN Reason Stop Dose Admin Albuterol 2.5 mg 09/13/20 08:28 Albuterol Sulfate Neb 2.5 Mg/0.5 Ml Inh INHALATION Q4HRT PRN Shortness Of Breath Alprazolam 0.5 mg 09/18/20 08:10 09/20/20 21:20 Alprazolam (*Crx) 0.5 Mg Tablet PO 0.5 mg TID PRN Administration Anxiety Lipase/Protease/Amylase 1 cap 09/09/20 17:00 09/21/20 09:02 Lipase/Amylase/Protease 12,000 Units Cap PO 1 cap TIDWM FLIP Administration Budesonide 0.5 mg 09/12/20 08:00 09/21/20 07:49 Budesonide Respule Neb 0.5 Mg/2 Ml Amp INHALATION Not Given Q12HRT FLIP Carvedilol 25 mg 09/09/20 21:00 09/21/20 09:04 Carvedilol 25 Mg Tablet PO 25 mg Q12HR FLIP Administration Clonidine HCl 0.1 mg 09/09/20 09:00 09/21/20 09:08 Clonidine Hcl 0.1 Mg Tablet PO
[2020-09-21 12:32] LABS: Glucose Point of Care 416 mg/dl (65-105)
[2020-09-21] MEDS: INSULIN ASPART (*BKC) 100 UNITS/ML 15 UNITS SUB-Q (12:49)
[2020-09-21 15:49] LABS: Glucose Point of Care 250 mg/dl (65-105)
[2020-09-21] MEDS: INSULIN ASPART (*BKC) 100 UNITS/ML SUB-Q (16:12)
--- NOTE | 2020-09-21 17:05 | PM.IMPN ---
Progress Note: A&P Assessment and Plan (1) Acute alteration in mental status: Code(s): R41.82 - Altered mental status, unspecified Status: Acute Assessment and Plan: 09/09 Patient is a 45-year-old female with history of end-stage renal disease on peritoneal dialysis patient is quite somnolent unable to provide any review of symptoms or history, her mother is present in the room providing history and some of the history is recorded from electronic chart, apparently patient was brought emergency department her yesterday after see a taken several tablets of Xanax to get high, patient was evaluated in emergency depart however patient's left AMA, 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 09/10 patient had a peritoneal dialysis last night this morning patient is little more awake and able to communicate and was able to swallow without difficulty, however patient does not recollect exactly happened by she was brought to the emergency, see denies taking any medication more than necessary, however her current mentation has improved, VAUGHN Gaytan patient will have return dialysis again today, patient is hypokalemic and hypomagnesemia will replace and monitor, clinically stable will have a PT OT evaluate the patient and further recommendation to follow. 09/11 today patient slightly better however still confused still does not know exactly what happened and by sees in hospital, later nursing staff spoke with the patient's sister and this is not her baseline, patient was seen by Nephrology who has seen her before and agrees the patient is still quite confused, patient will receive her peritoneal daily dialysis, so far there is no growth in urine and blood culture, will stop antibiotic, peritoneal fluid results are pending, will continue PT OT. Will discuss with the patient's family for the discharge planning. 09/12 today patient is more agitated and hallucinating not very cooperative, patient was given Zyprexa 5 mg IM which did improve and calm her down, her sister is present in the room, patient unable to provide any review of symptom. 09/13, on 612 throughout the day patient was quite agitated and combative patient was Zyprexa 10 mg and 2 mg of Ativan IM however there was no improvement on the night and this morning patient is quite hallucinating, is stable their dogs and snakes in the room and under the bed, after discussing with nursing staff, I spoke with slug press operator will transfer the patient to ICU to start on Precedex, patient will continue to have peritoneal dialysis, patient seen by Nephrology, will continue to monitor 09/14 pt is hallucinating in the bed history of benzodiazepine as well as opiates abuse, continue to monitor in icu 09/15 much the same not slept for days still hallucinating 09/16 seen by ICU MD 09/17 tired sleeping deeply, family at bedside. prognosis unclear, pt code status changed to dnr 09/19 sleeping 09/20 pt is more awake today 09/21/20 17:05 Patient was admitted with acute mental status change on 09/09 with history of peritoneal dialysis however patient's symptoms have not been improving and remains confused unable to provide any review of symptom, a prognosis poor, patient family had decided to consider comfort care a possibly hospice more detail will follow tomorrow from her family. (2) UTI (urinary tract infection): Code(s): N39.0 - Urinary tract infection, site not specified Status: Resolved As
[2020-09-21 20:22] LABS: Glucose Point of Care 162 mg/dl (65-105)
[2020-09-21] MEDS: ALPRAZolam (*CRX) 0.5 MG TABLET PO (20:24)
[2020-09-21] MEDS: INSULIN GLARGINE (*BKC) 100 UNITS/ML 30 UNITS SUB-Q (21:00)
[2020-09-21] MEDS: BUDESONIDE RESPULE NEB 0.5 MG/2 ML AMP INHALATION (21:01)
[2020-09-22 04:00] VITALS: BP 101/89; PULSE 96; PULSE 99; RESP 20; TEMP 36.4; O2SAT 96
[2020-09-22 07:32] LABS: Glucose Point of Care 117 mg/dl (65-105)
[2020-09-22 08:00] VITALS: BP 135/88; PULSE 83; PULSE 99; RESP 20; TEMP 37; O2SAT 91
[2020-09-22 09:08] VITALS: PULSE 83
[2020-09-22] MEDS: LIPASE/AMYLASE/PROTEASE 12,000 UNITS CAP 1 CAP PO (09:08)
[2020-09-22] MEDS: FUROSEMIDE 80 MG TABLET PO (09:08)
[2020-09-22] MEDS: PANTOPRAZOLE SODIUM IV 40 MG VIAL IV PUSH (09:08)
[2020-09-22] MEDS: carvediloL 25 MG TABLET PO (09:08)
[2020-09-22] MEDS: NIFEdipine 30 MG TAB.ER.24 PO (09:09)
[2020-09-22] MEDS: VITAMIN B CMPLX/VIT C/FOLIC AC 1 CAPSULE 1 CAP PO (09:09)
[2020-09-22] MEDS: levETIRAcetam Tablet 250 MG, levETIRAcetam Tablet 500 MG 750 MG PO (09:09)
[2020-09-22] MEDS: POTASSIUM CHLORIDE 20 MEQ TABLET.ER PO (09:09)
[2020-09-22] MEDS: ROSUVASTATIN 10 MG TABLET PO (09:09)
[2020-09-22] MEDS: NICOTINE (*PBKC) 21 MG PATCH 1 PATCH TRANSDERM (09:09)
[2020-09-22] MEDS: LACTULOSE 20 GM/30 ML UDC PO (09:09)
[2020-09-22] MEDS: QUEtiapine FUMARATE 100 MG TABLET PO (09:10)
[2020-09-22] MEDS: cloNIDine HCL 0.1 MG TABLET PO (09:11)
[2020-09-22] MEDS: HEPARIN SODIUM 5,000 UNITS/ML VIAL 5000 UNITS SUB-Q (09:11)
[2020-09-22] MEDS: BUDESONIDE RESPULE NEB 0.5 MG/2 ML AMP INHALATION (09:39)
[2020-09-22 09:49] VITALS: PULSE 100; RESP 20
[2020-09-22 11:06] LABS: Glucose Point of Care 160 mg/dl (65-105)
[2020-09-22 12:00] VITALS: BP 84/59; PULSE 94; PULSE 96; RESP 16; TEMP 36.1; O2SAT 98
--- NOTE | 2020-09-22 14:10 | PM.IMPN ---
Progress Note: A&P Assessment and Plan (1) Acute alteration in mental status: Code(s): R41.82 - Altered mental status, unspecified Status: Acute Assessment and Plan: 09/09 Patient is a 45-year-old female with history of end-stage renal disease on peritoneal dialysis patient is quite somnolent unable to provide any review of symptoms or history, her mother is present in the room providing history and some of the history is recorded from electronic chart, apparently patient was brought emergency department her yesterday after see a taken several tablets of Xanax to get high, patient was evaluated in emergency depart however patient's left AMA, 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 09/10 patient had a peritoneal dialysis last night this morning patient is little more awake and able to communicate and was able to swallow without difficulty, however patient does not recollect exactly happened by she was brought to the emergency, see denies taking any medication more than necessary, however her current mentation has improved, VAUGHN Gaytan patient will have return dialysis again today, patient is hypokalemic and hypomagnesemia will replace and monitor, clinically stable will have a PT OT evaluate the patient and further recommendation to follow. 09/11 today patient slightly better however still confused still does not know exactly what happened and by sees in hospital, later nursing staff spoke with the patient's sister and this is not her baseline, patient was seen by Nephrology who has seen her before and agrees the patient is still quite confused, patient will receive her peritoneal daily dialysis, so far there is no growth in urine and blood culture, will stop antibiotic, peritoneal fluid results are pending, will continue PT OT. Will discuss with the patient's family for the discharge planning. 09/12 today patient is more agitated and hallucinating not very cooperative, patient was given Zyprexa 5 mg IM which did improve and calm her down, her sister is present in the room, patient unable to provide any review of symptom. 09/13, on 612 throughout the day patient was quite agitated and combative patient was Zyprexa 10 mg and 2 mg of Ativan IM however there was no improvement on the night and this morning patient is quite hallucinating, is stable their dogs and snakes in the room and under the bed, after discussing with nursing staff, I spoke with cloud architect will transfer the patient to ICU to start on Precedex, patient will continue to have peritoneal dialysis, patient seen by Nephrology, will continue to monitor 09/14 pt is hallucinating in the bed history of benzodiazepine as well as opiates abuse, continue to monitor in icu 09/15 much the same not slept for days still hallucinating 09/16 seen by ICU MD 09/17 tired sleeping deeply, family at bedside. prognosis unclear, pt code status changed to dnr 09/19 sleeping 09/20 pt is more awake today 09/21/20 17:05 Patient was admitted with acute mental status change on 09/09 with history of peritoneal dialysis however patient's symptoms have not been improving and remains confused unable to provide any review of symptom, a prognosis poor, patient family had decided to consider comfort care a possibly hospice more detail will follow tomorrow from her family. 09/21 Patient was admitted with acute mental status change on 09/09 with history of peritoneal dialysis however patient's symptoms have n
[2020-09-22 20:00] VITALS: BP 94/54; PULSE 89; RESP 20; TEMP 36.4; O2SAT 96
[2020-09-22] MEDS: LORazepam INJ (*CRX) 2 MG/ML VIAL 1 MG IV PUSH (20:33)
--- NOTE | 2020-09-22 23:27 | PC.NURSE ---
This patient, Bryant Flores, was transferred to [ [facility]] on 09/22/20 at 2327. Personal belongings sent with patient. Report given to [Alberto west ]. Appropriate documentation sent with patient.
[2020-09-23 05:18] LABS: Angiotensin Converting Enzyme 70 U/L (9-67)
[2020-09-23] MEDS: LORazepam INJ (*CRX) 2 MG/ML VIAL 1 MG IV PUSH ×2 (08:22→13:07)
--- NOTE | 2020-09-23 10:30 | PM.DS ---
DS: Admitting Diagnosis Admitting Diagnosis Admitting Diagnosis: Chief Complaint: Generalized weakness acute mental status change DS: Discharge Diagnosis Discharge Diagnosis (1) Acute alteration in mental status: Code(s): R41.82 - Altered mental status, unspecified Status: Acute Assessment and Plan: 09/09 Patient is a 45-year-old female with history of end-stage renal disease on peritoneal dialysis patient is quite somnolent unable to provide any review of symptoms or history, her mother is present in the room providing history and some of the history is recorded from electronic chart, apparently patient was brought emergency department her yesterday after see a taken several tablets of Xanax to get high, patient was evaluated in emergency depart however patient's left AMA, 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 09/10 patient had a peritoneal dialysis last night this morning patient is little more awake and able to communicate and was able to swallow without difficulty, however patient does not recollect exactly happened by she was brought to the emergency, see denies taking any medication more than necessary, however her current mentation has improved, VAUGHN Gaytan patient will have return dialysis again today, patient is hypokalemic and hypomagnesemia will replace and monitor, clinically stable will have a PT OT evaluate the patient and further recommendation to follow. 09/11 today patient slightly better however still confused still does not know exactly what happened and by sees in hospital, later nursing staff spoke with the patient's sister and this is not her baseline, patient was seen by Nephrology who has seen her before and agrees the patient is still quite confused, patient will receive her peritoneal daily dialysis, so far there is no growth in urine and blood culture, will stop antibiotic, peritoneal fluid results are pending, will continue PT OT. Will discuss with the patient's family for the discharge planning. 09/12 today patient is more agitated and hallucinating not very cooperative, patient was given Zyprexa 5 mg IM which did improve and calm her down, her sister is present in the room, patient unable to provide any review of symptom. 09/13, on 612 throughout the day patient was quite agitated and combative patient was Zyprexa 10 mg and 2 mg of Ativan IM however there was no improvement on the night and this morning patient is quite hallucinating, is stable their dogs and snakes in the room and under the bed, after discussing with nursing staff, I spoke with second class welder will transfer the patient to ICU to start on Precedex, patient will continue to have peritoneal dialysis, patient seen by Nephrology, will continue to monitor 09/14 pt is hallucinating in the bed history of benzodiazepine as well as opiates abuse, continue to monitor in icu 09/15 much the same not slept for days still hallucinating 09/16 seen by ICU MD 09/17 tired sleeping deeply, family at bedside. prognosis unclear, pt code status changed to dnr 09/19 sleeping 09/20 pt is more awake today 09/21/20 17:05 Patient was admitted with acute mental status change on 09/09 with history of peritoneal dialysis however patient's symptoms have not been improving and remains confused unable to provide any review of symptom, a prognosis poor, patient family had decided to consider comfort care a possibly hospice more detail will follow tomorrow from her family.
[2020-09-23 15:43] LABS: Vitamin A 19 mcg/dL (38-98)
[2020-09-25 00:16] LABS: Vitamin D 1,25 (OH)2 Total <8 pg/mL (18-72); Vitamin D2 1,25 (OH)2 <8 pg/mL; Vitamin D3 1,25 (OH)2 <8 pg/mL
== END 2020-09-23 13:33 | disposition hospice, home (50) | DRG 871 ==
LOC: ANHED 06:49 → ANH3MEDSUR 15:43 → ANHICU 09-14 11:52 → ANHIMU 09-22 11:49 → ANH3MEDSUR 09-23 10:30 → ANHICU 09-24 11:47 → ANHIMU 09-24 11:47
PROVIDERS: Internal Medicine; Internal Medicine Nephrology; Admitting Provider Internal Medicine; Emergency Provider General Practice; Visit Provider Family Medicine
DX: A41.9 Sepsis, unspecified organism (principal); N18.6 End stage renal disease; N39.0 Urinary tract infection, site not specified; E87.1 Hypo-osmolality and hyponatremia; I12.0 Hypertensive chronic kidney disease with stage 5 chronic kidney disease or end stage renal disease; E11.22 Type 2 diabetes mellitus with diabetic chronic kidney disease; Z99.2 Dependence on renal dialysis; Z91.15 Patient's noncompliance with renal dialysis; R41.82 Altered mental status, unspecified; E87.6 Hypokalemia; F17.210 Nicotine dependence, cigarettes, uncomplicated; J44.9 Chronic obstructive pulmonary disease, unspecified; F32.9 Major depressive disorder, single episode, unspecified; F41.9 Anxiety disorder, unspecified; F13.10 Sedative, hypnotic or anxiolytic abuse, uncomplicated; E78.00 Pure hypercholesterolemia, unspecified; Z66 Do not resuscitate; Z79.4 Long term (current) use of insulin; Z79.899 Other long term (current) drug therapy
CPT/HCPCS: 36415; 36569; 36600; 51701; 70450; 71045; 72125; 80048; 80053; 80069; 80307; 81001; 81025; 82040; 82108; 82140; 82164; 82306; 82330; 82375; 82652; 82805; 82948; 83050; 83605; 83690; 83735; 83970; 84100; 84132; 84484; 84590; 84702; 85025; 85027; 85610; 85730; 86140; 87040; 87070; 87075; 87086; 87205; 88108; 89051; 90945; 93005; 94640; 95816; 96374; 97110; 97161; 97165; 97530; 97535; 99285; A9270; C1751; C9113; J0630; J0696; J1200; J1644; J1815; J1953; J2060; J2405; J2430; J3475; J3480; J7060